=== PATIENT | male | born 1935 | race Caucasian/White ===

== ENCOUNTER 2019-04-24 17:10 | Inpatient (IN) | payer MEDICARE, OTHER ==
[~2019-04-24] VITALS: Ht 167.6 cm; Wt 101.2 kg
[~2019-04-24 17:10] MED LIST: ACHYD1T PO; ALLO300T2 PO; ALLOPURINOL; GLMP2T PO; LEVO125T6 PO; LEVO5TAB12 PO; LOSA1TAB15 PO; MELO-195 PO; MMT17NA NS; NFR150C PO; SENN1TAB76 PO; SITA100T PO; TRM50T PO; WARF2.5T PO; [UNRECOGNIZED DRUG - MIXTURE] TOP
--- NOTE | 2019-04-24 17:15 | NUR ---
NERY PHAM admitted to room 427-1, with an admitting diagnosis of ANEMIA,LOWER GI BLEED, on 04/24/[address] CARDOZAS via AMB, accompanied by .NERY PHAM introduced to surroundings, call light, bed controls, phone, TV, temperature control, lights, meal times, smoking policy, visitor policy, side rail policy, bathrooms and showers. Patient Rights given to patient in the handbook. NERY PHAM verbalizes understanding that [facility] is not responsible for the loss or damage to any personal effects or valuables that are kept in the patients posession during their hospitalization. The following Patient Care Plans were discussed with the PT: Discharge Planning, IMP GAS EXCH, HIGH RISK INFECTION, AND ACT INTOL. NERY PHAM verbalizes understanding of Interdisciplinary Patient Education. Patient and/or family were informed about the Rapid Response Team and its purpose.
[2019-04-24 17:42] VITALS: BP 158/78
--- NOTE | 2019-04-24 17:45 | HISTORY AND PHYSICAL ---
DATE OF SERVICE: 04/24/2019 ADMITTING PRIMARY CARE PHYSICIAN: Dr. Castle. HISTORY OF PRESENT ILLNESS: The patient is an 84-year-old male who was referred over to us for GI bleed. He states that this has been going on for the past 10 days. He reports that today he did feel weak as well as lightheaded. He did have laboratory work drawn two days ago with hemoglobin of 11; however, repeat was done today and showed a significant decrease at 7.8. He reports that the blood is usually with every bowel movement and is red in coloration. He does have a history of polyps and also did have a large symptomatic polyp of the right colon, status post right hemicolectomy in 2016. Previous colonoscopy also did show hemorrhoids as well as diverticulosis. Due to his continued bleeding and symptomatic anemia, we will admit him, transfuse blood and stabilize and then proceed with a colonoscopy. PAST MEDICAL HISTORY: Diabetes, hypothyroid, degenerative joint disease, diverticulosis, hemorrhoids. PAST SURGICAL HISTORY: Bilateral total knee arthroplasty, open right hemicolectomy 16'. ALLERGIES: No known drug allergies. MEDICATIONS: Glipizide 10 mg daily, amlodipine 10 mg daily, Synthroid 175 mcg daily, meloxicam 15 mg daily, Linzess 290 mg daily, allopurinol 300 mg daily, levocetirizine 5 mg daily, tamsulosin 0.4 mg daily, Trulicity 0.75 mg daily. SOCIAL HISTORY: Previous smoker, quit in 1982. Negative alcohol. FAMILY HISTORY: Mother, brother, diabetes. Paternal grandmother with gastric cancer. VITAL SIGNS: Blood pressure 110/58. Current weight 207.5 pounds at 5 feet 7 inches. REVIEW OF SYSTEMS: Well-nourished male in no acute distress. He is not experiencing any shortness of breath or difficulty breathing. No chest pain, palpitations, diaphoresis. No nausea, vomiting with red blood per rectum, usually with every bowel movement. No fever, chills, no recent inadvertent weight loss. PHYSICAL EXAMINATION: CHEST: Clear. Good breath sounds bilaterally. HEART: Regular, no murmurs. EXTREMITIES: No lower extremity edema, negative Homans sign. HEENT: No scleral icterus. NECK: No cervical lymphadenopathy. ABDOMEN: Soft, nontender, nondistended. No palpable masses. SKIN: Warm, dry. ASSESSMENT AND PLAN: An 84-year-old male with lower gastrointestinal bleed with symptomatic anemia. We will admit him, check serial hemoglobin and hematocrit as well as transfuse two units of packed red blood cells. During this admission, we will also proceed with a colonoscopy. Job ID: [id number] DocumentID: [id number] Dictated Date: 04/24/2019 17:11:30 State Game Protector Date: 04/24/2019 17:44:42 Dictated By: ALEX ARCINIEGA MD [facility]
[2019-04-24 17:50] VITALS: BP 158/78
[2019-04-24] MEDS ORDERED: ONDANSETRON 4 MG/2 ML (SDV) Z0FRAN IV PRN (18:00)
[2019-04-24] MEDS ORDERED: fentaNYL INJECTION 100 MCG/2 ML AMP IV PRN (18:00)
[2019-04-24] MEDS ORDERED: HYDROcodone/APAP 7.5 MG/325 MG (LORTAB, LORCET PLUS) TABLET PO PRN (18:00)
[2019-04-24] MEDS ORDERED: NS IV 500 ML 500 ML IV SCH (18:00)
[2019-04-24 18:15] LABS: HEMOGLOBIN 7.9 G/DL (13.3-17.7)
[2019-04-24] MEDS: PANTOPRAZOLE 40 MG (PROTONIX) VIAL IV SCH (18:47)
[2019-04-24] MEDS: CATHETER FLUSH 10 ML SYR IV PRN (18:48)
--- NOTE | 2019-04-24 19:00 | NUR ---
NOTE THAT CONSENT FOR BLOOD PRODUCTS SIGNED AND IN CHART --
[2019-04-24] MEDS: CATHETER FLUSH 10 ML SYR IV SCH (19:37)
[2019-04-24 20:56] VITALS: BP 135/61
[2019-04-24 21:03] VITALS: BP 135/61
[2019-04-24 21:18] VITALS: BP 138/65
[2019-04-24] MEDS ORDERED: MELATONIN 3 MG TABLET ONE (21:47)
[2019-04-24] MEDS: MELATONIN 3 MG TABLET PO SCH (21:53)
[2019-04-24 23:34] VITALS: BP 140/64
[2019-04-25] VITALS (7 sets, daily range): BP systolic 127–172; BP diastolic 60–79
[2019-04-25] MEDS: CATHETER FLUSH 10 ML SYR IV SCH ×3 (02:50→20:54)
[2019-04-25 05:28] LABS: HEMOGLOBIN 8.8 G/DL (13.3-17.7); MEAN PLATELET VOLUME 10.4 FL (7.4-10.4); RED CELL DISTRIBUTION WIDTH 15.5 % (10.0-14.5); WHITE BLOOD COUNT 9.7 10^3/uL (4.3-11.0)
[2019-04-25 05:43] LABS: CALCIUM 7.9 MG/DL (8.5-10.1); CREATININE SERUM 1.5 MG/DL (0.60-1.30)
--- NOTE | 2019-04-25 07:17 | NUR ---
Dr. Amaral notified of consult.
[2019-04-25] MEDS ORDERED: CYAN250010 PO (11:29)
[2019-04-25] MEDS ORDERED: DULA0.75 SQ (11:29)
[2019-04-25] MEDS ORDERED: LINA290C PO (11:29)
[2019-04-25] MEDS ORDERED: LEVO5TAB12 PO (11:29)
[2019-04-25] MEDS ORDERED: GLIP10TA13 PO (11:29)
[2019-04-25] MEDS ORDERED: TAMS0.4C98 PO (11:29)
[2019-04-25] MEDS ORDERED: ALLO300T2 PO (11:29)
[2019-04-25] MEDS ORDERED: AMLO10TA7 PO (11:29)
[2019-04-25] MEDS ORDERED: MELO15TA39 PO (11:29)
[2019-04-25] MEDS ORDERED: LEVO175T5 PO (11:29)
[2019-04-25] MEDS ORDERED: METH2.5T PO (11:39)
[2019-04-25] MEDS: inSUlin ASPART (NovoLOG) 1 UNIT/0.01 ML (CHARGE PER UNIT) SC SCH ×3 (12:29→20:54)
--- NOTE | 2019-04-25 13:36 | NUR ---
SPOKE WITH THE PT(HIS HAD A MED LIST) WELL GOING THRU THE EXT MED HISTORY TO COMPLETE THE MED REC. PT WAS ABLE TO TELL ME HOW/WHEN HE TAKES EACH MED. THE FILL DATES ON THE EXT MED HIST INDICATE THE PT IS TAKING THEM PRESCRIBED (MELOXICAM: THE RX SAYS " 1 TAB DAILY HOWEVER THE PT CUTS IT IN HALF AND JUST TAKES 7.5MG DAILY BC HE WAS WORRIED ABOUT THE BLEEDING RISH) PT RECEIVES A COMPOUNDED TESTOSTERONE CREAM FROM A COMPOUNDING PHARMACY IN [facility], THIS WAS ON THE MED REC FROM A PREVIOUS STAY AND I KEPT THAT THE SAME. PT HAD PICKED UP A COUPLE ANTIBIOTIC AND ANUSOL SUPPOSITORIES, HOWEVER HE QUIT TAKING THEM SHORTLY BEFORE HIS ADMISSION SO I LEFT THEM OFF THE MED REC. OTC MEDS: VIT B12
--- NOTE | 2019-04-25 14:44 | Consultation - Hospitalist ---
HPI History of Present Illness: HPI/Chief Complaint Quinn Faria is a 84-year-old male with past medical history of hypertension, type II diabetes mellitus, hypothyroidism, gout, BPH, who presented with bright red blood per rectum. He states that he has had bleeding for a couple weeks. He says that it has not been every time he has gone to the bathroom. He said that it improved but has gotten worse to the past day or 2. He says that since this morning he has gone about 4 times and it is been bright red blood every time. He reports that he did have some black tarry stools this morning as well. He denies any fevers or chills. He denies any chest pain or shortness of breath. He denies any nausea, vomiting, hematemesis, abdominal pain. Source: patient Exam Limitations: no limitations Date Seen 04/25/19 Attending Physician Meghan Bishop MD PCP Pb Castle MD Referring Physician Date of Admission Apr 24, 2019 at 17:20 Home Medications & Allergies Home Medications Reviewed patient Home Medication Reconciliation performed by pharmacy medication reconciliations surface lay out technician and/or nursing. Patients Allergies have been reviewed. Allergies Allergies Coded Allergies No Known Drug Allergies (Verified Allergy, Unknown, 07/29/09) Past Wphwwsn-Lrwlzq-Uuxusn Hx Past Med/Social Hx: Reviewed Nursing Past Med/Soc Hx Patient Social History Alcohol Use: Denies Use Recreational Drug Use: No Physical Abuse Screen: No Sexual Abuse: No Recent Foreign Travel: No Contact w/other who traveled: No Recent Hopitalizations: Yes Recent Infectious Disease Expo: No Immunizations Up To Date Tetanus Booster (TDap): Unknown Date of Pneumonia Vaccine: Feb 13, 2017 Date of Influenza Vaccine: Feb 13, 2019 Seasonal Allergies Seasonal Allergies: Yes Past Medical History Currently Using CPAP: No Currently Using BIPAP: No Reproductive: No Sexually Transmitted Disease: No HIV/AIDS: No Gastrointestinal: Chronic Constipation, Hemorrhoids Musculoskeletal: Arthritis Endocrine: Hypothyroidsim, Diabetes, Non-Insulin dep Are Your Blood Sugars Over 250: No HEENT: Cataract Skin/Integumentary: Psoriasis History of Blood Disorders: Yes Adverse Reaction to Blood [place]: No Family History Cancer 03 FATHER Family history: Diabetes mellitus 03 MOTHER 09 BROTHER Hereditary disease SON (ELEONORA LAKHANI) No Family History of: Abdominal aortic aneurysm Congestive heart failure Family history: Allergy Family history: Breast disease Family history: Cardiovascular disease Family history: Gastrointestinal disease Family history: Thyroid disorder History of - respiratory disease Myocardial infarction Seizure disorder Review of Systems Constitutional: no symptoms reported EENTM: no symptoms reported Respiratory: no symptoms reported Cardiovascular: no symptoms reported Gastrointestinal: No abdominal pain, No nausea, No vomiting; other (hematochezia) Genitourinary: no symptoms reported Musculoskeletal: no symptoms reported Skin: no symptoms reported Psychiatric/Neurological: No Symptoms Reported Physical Exam Physical Exam Vital Signs Vital Signs - First Documented 04/24/19 04/24/19 17:35 17:42 Temp 36.5 Pulse 70 Resp 20 B/P (MAP) 158/78 Pulse Ox 100 O2 Delivery Room Air Capillary Refill : Height, Weight, BMI Height: '" Weight: 222lbs. oz. 100.904788vk; 32.96 BMI Method: General Appearance: No Apparent Distress, WD/WN HEENT: PERRL/EOMI, Pharynx Normal Neck: Normal Inspection, Supple Respiratory: Lungs Clear, Normal Breath Sounds, No Respiratory Distress Cardiovascular: Regular Rate, Rhythm, No Edema, No Murmur Gastrointestinal: Normal Bowel Sounds, Non Tender, Soft Extremity: Normal Inspection, Non Tender, No Pedal Edema Neurologic/Psychiatric: Alert, Oriented x3, No Motor/Sensory Deficits, Normal Mood/Affect Skin: Normal Color, Warm/Dry Lymphatic: No Adenopathy Results Results/Procedures Labs Laboratory Tests 04/24/19 18:03 04/25/19 04:50 Patient resulted labs reviewed. Assessment/Plan Assessment and Plan Assess & Plan/Chief Complaint Hematochezia Acute blood loss anemia Acute lower GI bleeding admitted to Dr. Bishop hemoglobin 7.9 on arrival, down from baseline approximately 12 transfuse 2 units last night Hemoglobin 8.8 this morning planning for colonoscopy Hypertension Hold amlodipine Type II diabetes mellitus Sliding scale insulin Hypothyroidism Continue levothyroxine BPH Continue Flomax Gout Continue allopurinol DVT prophylaxis: Held due to active major bleeding Diagnosis/Problems Diagnosis/Problems (1) Acute lower GI bleeding Status: Acute (2) Acute blood loss anemia Status: Acute (3) Hematochezia Status: Acute (4) HTN (hypertension) Status: Chronic Qualifiers: Hypertension type: essential hypertension Qualified Codes: I10 - Essential (primary) hypertension (5) T2DM (type 2 diabetes mellitus) Status: Chronic (6) BPH (benign prostatic hyperplasia) Status: Chronic (7) Gout Status: Chronic (8) Hypothyroidism Status: Chronic Clinical Quality Measures DVT/VTE Risk/Contraindication: Risk Factor Score Per Nursin RFS Level Per Nursing on Admit: 2=Moderate MAIA THOMSON MD Apr 25, 2019 14:44 POS
--- NOTE | 2019-04-25 15:22 | Progress Note ---
Subjective Date Seen by a Provider: Apr 25, 2019 Time Seen by a Provider: 15:00 Subjective/Events-last exam doing well. hb stable. mild rectal bleed but decreasing. no abd pain. Objective Exam Vital Signs Date Time Temp Pulse Resp B/P (MAP) Pulse Ox O2 Delivery O2 Flow Rate FiO2 04/25/19 12:00 36.3 69 20 162/69 (100) 99 Room Air 04/25/19 08:00 36.1 79 20 170/79 (109) 99 Room Air 04/25/19 08:00 Room Air 04/25/19 02:33 36.6 68 20 140/65 95 Room Air 04/25/19 02:33 36.6 68 20 140/65 (90) 95 Room Air 04/25/19 00:29 36.5 68 20 149/69 96 Room Air 04/25/19 00:08 36.8 63 20 147/66 98 Room Air 04/24/19 23:34 36.6 67 20 140/64 98 Room Air 04/24/19 23:34 36.6 67 20 140/64 (89) 98 Room Air 04/24/19 21:18 37.0 82 20 138/65 96 Room Air 04/24/19 21:03 37.1 79 20 135/61 (85) 96 Room Air 04/24/19 20:56 37.1 79 20 135/61 96 Room Air 04/24/19 19:40 96 Room Air 04/24/19 17:50 36.5 70 20 158/78 (104) 100 Room Air 04/24/19 17:42 36.5 70 20 158/78 100 Room Air 04/24/19 17:35 100 Room Air I & O 04/25/19 07:00 Intake Total 600 ml Output Total 625 ml Balance -25 ml Capillary Refill : General Appearance: No Apparent Distress Neck: Full Range of Motion Respiratory: Chest Non Tender Cardiovascular: Regular Rate, Rhythm Gastrointestinal: normal bowel sounds, non tender, soft Extremity: Normal Capillary Refill Neurologic/Psychiatric: Alert, Oriented x3 Skin: Normal Color Lymphatic: No Adenopathy Results Lab Laboratory Tests 04/24/19 18:03: Hemoglobin 7.9L, Hematocrit 23L 04/25/19 04:50: Hemoglobin 8.8L, Hematocrit 26L, White Blood Count 9.7, Red Blood Count 2.84L, Mean Corpuscular Volume 92, Mean Corpuscular Hemoglobin 31, Mean Corpuscular Hemoglobin Concent 34, Red Cell Distribution Width 15.5H, Platelet Count 227, Mean Platelet Volume 10.4, Sodium Level 137, Potassium Level 4.0, Chloride Level 110H, Carbon Dioxide Level 19L, Anion Gap 8, Blood Urea Nitrogen 28H, Creatinine 1.50H, Estimat Glomerular Filtration Rate 45, BUN/Creatinine Ratio 19, Glucose Level 174H, Calcium Level 7.9L 04/25/19 11:00: Glucometer 251H Assessment/Plan Assessment/Plan Assess & Plan/Chief Complaint lower GI bleed. schedule colonoscopy. Clinical Quality Measures DVT/VTE Risk/Contraindication: Risk Factor Score Per Nursin RFS Level Per Nursing on Admit: 2=Moderate ALEX ARCINIEGA MD Apr 25, 2019 15:22 POS
[2019-04-25] MEDS ORDERED: MAGNESIUM CITRATE 300 ML BTL PO NR (15:45)
[2019-04-25] MEDS: PANTOPRAZOLE 40 MG (PROTONIX) VIAL IV SCH (17:55)
[2019-04-25 18:30] LABS: HEMOGLOBIN 9.3 G/DL (13.3-17.7)
[2019-04-25] MEDS ORDERED: amLODIPine 10 MG (NORVASC) TAB ONE (20:13)
[2019-04-25] MEDS: amLODIPine 10 MG (NORVASC) TAB PO SCH (20:53)
[2019-04-25] MEDS: LORATADINE (CLARITIN) 10 MG TAB PO SCH (20:54)
[2019-04-25] MEDS: TAMSULOSIN 0.4 MG (FLOMAX) CAP PO SCH (20:54)
[2019-04-25] MEDS: ALLOPURINOL 300 MG (ZYLOPRIM) TAB PO SCH (20:54)
[2019-04-25] MEDS: MELATONIN 3 MG TABLET PO SCH (20:54)
[2019-04-25] MEDS ORDERED: LEVOCETIRIZINE 5 MG TAB (XYZAL) NON-FORMULARY PO SCH (21:00)
[2019-04-25] MEDS ORDERED: NON-FORMULARY MEDICATION 1 EA EA (Allopurinol 300 MG) PO SCH (21:00)
[2019-04-25] MEDS ORDERED: MAGNESIUM CITRATE 300 ML BTL ONE (21:23)
[2019-04-25] MEDS ORDERED: MAGNESIUM CITRATE 300 ML BTL PO ONE (21:30)
--- NOTE | 2019-04-25 21:30 | NUR ---
Dr. Bishop notified of pt's request for additional Mag Citrate. New order rec for Mag Citrate 150-300 mls x 1 dose.
[2019-04-26] VITALS (24 sets, daily range): BP systolic 104–175; BP diastolic 50–73
[2019-04-26] MEDS: CATHETER FLUSH 10 ML SYR IV SCH ×3 (05:55→20:20)
[2019-04-26] MEDS: LEVOTHYROXINE 75 MCG (LEVOTHROID) TABLET PO SCH (05:55)
[2019-04-26] MEDS: LEVOTHYROXINE 100 MCG (LEVOTHROID) TAB PO SCH (05:55)
[2019-04-26] MEDS: inSUlin ASPART (NovoLOG) 1 UNIT/0.01 ML (CHARGE PER UNIT) SC SCH ×4 (05:59→22:04)
[2019-04-26 06:05] LABS: HEMOGLOBIN 8.2 G/DL (13.3-17.7)
[2019-04-26] MEDS: LINACLOTIDE 290 MCG (LINZESS) CAPSULE PO SCH (07:33)
[2019-04-26 08:03] LABS: CALCIUM 8.2 MG/DL (8.5-10.1); CREATININE SERUM 1.58 MG/DL (0.60-1.30); POTASSIUM 3.9 MMOL/L (3.6-5.0)
[2019-04-26] MEDS ORDERED: NON-FORMULARY MEDICATION 1 EA EA (Amlodipine Besylate 10 MG) PO SCH (09:00)
[2019-04-26] MEDS ORDERED: NON-FORMULARY MEDICATION 1 EA EA (Levothyroxine Sodium 175 MCG) PO SCH (09:00)
--- NOTE | 2019-04-26 09:37 | Progress Note - Hospitalist ---
Subjective HPI/CC On Admission Date Seen by Provider: Apr 26, 2019 Time Seen by Provider: 09:10 Quinn Faria is a 84-year-old male with past medical history of hypertension, type II diabetes mellitus, hypothyroidism, gout, BPH, who presented with bright red blood per rectum. He states that he has had bleeding for a couple weeks. He says that it has not been every time he has gone to the bathroom. He said that it improved but has gotten worse to the past day or 2. He says that since this morning he has gone about 4 times and it is been bright red blood every time. He reports that he did have some black tarry stools this morning as well. He denies any fevers or chills. He denies any chest pain or shortness of breath. He denies any nausea, vomiting, hematemesis, abdominal pain. Subjective/Events-last exam He took his colonoscopy prep last night. He states that he started having bowel movements around 130 a.m. He reports having hematochezia with all bowel movements. He denies any fevers, chills, chest pain, dyspnea, abdominal pain, nausea, vomiting. Objective Exam Vital Signs Vital Signs Date Time Temp Pulse Resp B/P (MAP) Pulse Ox O2 Delivery O2 Flow Rate FiO2 04/26/19 04:00 36.8 97 18 121/58 (79) 98 Room Air Capillary Refill : General Appearance: No Apparent Distress, WD/WN HEENT: PERRL/EOMI, Pharynx Normal Neck: Normal Inspection, Supple Respiratory: Lungs Clear, Normal Breath Sounds, No Respiratory Distress Cardiovascular: Regular Rate, Rhythm, No Edema, No Murmur Gastrointestinal: Normal Bowel Sounds, Non Tender, Soft Extremity: Normal Inspection, Non Tender, No Pedal Edema Neurologic/Psychiatric: Alert, Oriented x3, No Motor/Sensory Deficits, Normal Mood/Affect Skin: Normal Color, Warm/Dry Lymphatic: No Adenopathy Results/Procedures Lab Laboratory Tests 04/25/19 18:20 04/26/19 05:30 Patient resulted labs reviewed. Assessment/Plan Assessment and Plan Assess & Plan/Chief Complaint Hematochezia Acute blood loss anemia Acute lower GI bleeding admitted to Dr. Bishop hemoglobin 7.9 on arrival, down from baseline approximately 12 s/p 2 units PRBC Hemoglobin 8.2 this morning planning for colonoscopy today Hypertension Hold amlodipine Type II diabetes mellitus Sliding scale insulin CKD3 Creatinine 1.5, appears to be a baseline Continue to monitor and avoid nephrotoxins as able Hypothyroidism Continue levothyroxine BPH Continue Flomax Gout Continue allopurinol DVT prophylaxis: Held due to active major bleeding Diagnosis/Problems Diagnosis/Problems (1) Acute lower GI bleeding Status: Acute (2) Acute blood loss anemia Status: Acute (3) Hematochezia Status: Acute (4) HTN (hypertension) Status: Chronic Qualifiers: Hypertension type: essential hypertension Qualified Codes: I10 - Essential (primary) hypertension (5) T2DM (type 2 diabetes mellitus) Status: Chronic (6) BPH (benign prostatic hyperplasia) Status: Chronic (7) Gout Status: Chronic (8) Hypothyroidism Status: Chronic (9) CKD (chronic kidney disease) Status: Chronic Qualifiers: Chronic kidney disease stage: stage 3 (moderate) Qualified Codes: N18.3 - Chronic kidney disease, stage 3 (moderate) Clinical Quality Measures DVT/VTE Risk/Contraindication: Risk Factor Score Per Nursin RFS Level Per Nursing on Admit: 2=Moderate MAIA THOMSON MD Apr 26, 2019 09:37 POS
[2019-04-26] MEDS: amLODIPine 10 MG (NORVASC) TAB PO SCH (16:05)
--- NOTE | 2019-04-26 17:03 | Progress Note-Pre Operative ---
Pre-Operative Progress Note H&P Reviewed The H&P was reviewed, patient examined and no changes noted. Date Seen by Provider: Apr 26, 2019 Time Seen by Provider: 17:00 Date H&P Reviewed: Apr 26, 2019 Time H&P Reviewed: 16:55 Pre-Operative Diagnosis: Anemia, lower GI bleed SRINIVAS FERNANDEZ APRN Apr 26, 2019 17:03 POS
[2019-04-26] MEDS: PANTOPRAZOLE 40 MG (PROTONIX) VIAL IV SCH (17:20)
[2019-04-26 17:46] LABS: HEMOGLOBIN 7.8 G/DL (13.3-17.7)
[2019-04-26] MEDS ORDERED: NS IV 500 ML 500 ML ONE (17:50)
[2019-04-26] MEDS ORDERED: fentaNYL INJECTION 100 MCG/2 ML AMP ONE (17:53)
[2019-04-26] MEDS ORDERED: LIDOCAINE JELLY 2% 6 ML SYRINGE ONE (17:53)
[2019-04-26] MEDS ORDERED: MIDAZOLAM 5 MG/5 ML (VERSED) VIAL ONE ×2 (17:53)
[2019-04-26] MEDS: MIDAZOLAM 5 MG/5 ML (VERSED) VIAL IV PRN ×4 (17:59→18:22)
[2019-04-26] MEDS ORDERED: NS IV 500 ML 500 ML IV PRN (18:19)
[2019-04-26] MEDS ORDERED: LIDOCAINE JELLY 2% 6 ML SYRINGE MM PRN (18:30)
[2019-04-26] MEDS ORDERED: fentaNYL INJECTION 100 MCG/2 ML AMP IVP ONE (18:30)
--- NOTE | 2019-04-26 18:37 | Conscious Sedation/ASA ---
Conscious Sedation Pre-Proced Time 16:55 ASA Score 2 For ASA 3 and 4: Consider anesthesia and medical clearance. Also, for patients with a history of failed moderate sedation consider anesthesia. Airway Lungs Heart ASA score ASA 1: a normal healthy patient ASA 2: a patient with a mild systemic disease (mid diabetes, controlled hypertension, obesity ASA 3: a patient with a severe systemic disease that limits activity (angina, COPD, prior Myocardial infarction) ASA 4: a patient with an incapacitating disease that is a constant threat to life (CHF, renal failure) ASA 5: a moribund patient not expected to survive 24 hrs. (ruptured aneurysm) ASA 6: a declared brain- patient whose organs are being harvested. For emergent operations, add the letter E after the classification Mallampati Classification Grade 2 Sedation Plan Analgesia, Amnesia, Plan communicated to team members, Discussed options with patient/fam, Discussed risks with patient/fam The patient is an appropriate candidate to undergo the planned procedure, sedation, and anesthesia. The patient immediately re-assessed prior to indication. ALEX ARCINIEGA MD Apr 26, 2019 18:37 POS
--- NOTE | 2019-04-26 18:39 | Progress Note-Post Operative ---
Post-Operative Progess Note Surgeon (s)/Electronic Game Developer (s) Surgeon ALEX ARCINIEGA MD Electronic Game Developer: none Pre-Operative Diagnosis Anemia, lower GI bleed Post-Operative Diagnosis mild chronic stage 2 ext and int hemorrhoids, maroon stools throughout descending, sigmoid, rectum, no blood proximal colon and normal ileocolonic anastamosis. Procedure & Operative Findings Date of Procedure 04/26/19 Procedure Performed/Findings colonoscopy Anesthesia Type cs Estimated Blood Loss Estimated blood loss (mL): minimal Specimens/Packing Specimens Removed none ALEX ARCINIEGA MD Apr 26, 2019 18:39 POS
--- NOTE | 2019-04-26 18:55 | NUR ---
Back to room 427 via WC from endoscopy. Alert and oriented. at bedside. Dr. Bishop here to speak with and patient. Will continue to monitor.
--- NOTE | 2019-04-26 19:00 | OPERATIVE REPORT ---
DATE OF SERVICE: 04/26/2019 ATTENDING PRIMARY CARE PHYSICIAN: Pb Castle MD PREOPERATIVE DIAGNOSIS: Lower gastrointestinal bleed. POSTOPERATIVE DIAGNOSES: Maroon clotted stools throughout the descending colon, sigmoid colon and rectum with significant diverticulosis most likely consistent with a sigmoid diverticular bleed. There was a transition point of blood within the colon. The transverse colon and the ileocolonic anastomosis appeared normal with no proximal blood. There was no active bleeding identified. PROCEDURE: Colonoscopy. SURGEON: Alex Arciniega MD ANESTHESIA: Conscious sedation. ESTIMATED BLOOD LOSS: Minimal. FINDINGS: Same as postoperative diagnoses. DISPOSITION: The patient tolerated the procedure well. INDICATIONS: The patient is an 84-year-old male who was referred over to us for a gastrointestinal bleed. He had reported this has been going on for the past 10 days. He then reported feeling weak and lightheaded. He did have some laboratory work done and his initial hemoglobin was 11; however, this did decrease to 7.8. He does have a history of large symptomatic polyps and underwent a right hemicolectomy in 2016. He was admitted, IV hydrated as well as given two units of blood. Since being admitted, his blood levels went up; however, have decreased again. DESCRIPTION OF PROCEDURE: The patient was brought to the endoscopy suite, laid in left lateral decubitus position. After adequate IV pain and sedative medications and conscious sedation anesthesia, digital rectal examination was performed. Mild chronic stage II external and internal hemorrhoids were identified, which were not actively edematous nor inflamed and no bleeding. Normal sphincter tone was felt and there were no palpable masses. Prostate gland was palpable and appeared normal. The endoscope was then intubated to the anus and rectum gently insufflated. Within the rectum, there was a maroon clotted blood and this was irrigated and suctioned as well as possible. We then proceeded through the sigmoid colon where a moderate sigmoid diverticulosis identified. Each diverticula did have blood within the pockets; however, there were no red active bleeding identified in any of these diverticulum. We then proceeded through the descending colon where the maroon color clotted blood continued at approximately the distal transverse colon, there was transition of no blood. The endoscope was then advanced to the ileocolonic anastomosis, which appeared normal with no recurrent lesions as well as no blood. The endoscope was then slowly withdrawn while taking a second look and suctioning of residual air and clotted blood with no additional findings. The patient tolerated the procedure well. At this time, we feel that the bleeding source is due to a diverticular bleed and we will proceed with conservative measures and continue with transfusing packed red blood cells as needed in hopes of allowing this to clot off on its own. We will continue to monitor his clinical as well as vital signs and repeat serial hemoglobin and hematocrit levels. We will also transfuse 2 units of blood today. Job ID: [id number] DocumentID: [id number] Dictated Date: 04/26/2019 18:47:48 [employer]berry Farm Supervisor Date: 04/26/2019 18:59:35 Dictated By: ALEX ARCINIEGA MD
[2019-04-26] MEDS: NS IV 500 ML 500 ML IV NR ×2 (19:43→20:28)
[2019-04-26] MEDS: ALLOPURINOL 300 MG (ZYLOPRIM) TAB PO SCH (20:19)
[2019-04-26] MEDS: TAMSULOSIN 0.4 MG (FLOMAX) CAP PO SCH (20:19)
[2019-04-26] MEDS: LORATADINE (CLARITIN) 10 MG TAB PO SCH (20:19)
[2019-04-26] MEDS: MELATONIN 3 MG TABLET PO SCH (20:19)
[2019-04-27] VITALS (8 sets, daily range): BP systolic 112–155; BP diastolic 55–70
--- NOTE | 2019-04-27 01:08 | NUR ---
REPORT RECEIVED FROM LE ACHARYA. ASSUMED CARE OF PT AT THIS TIME. ABASEMENT HAS NOT CHANGED
[2019-04-27 05:45] LABS: HEMOGLOBIN 9.1 G/DL (13.3-17.7)
[2019-04-27 06:07] LABS: CALCIUM 7.9 MG/DL (8.5-10.1); CREATININE SERUM 1.48 MG/DL (0.60-1.30)
[2019-04-27] MEDS: LEVOTHYROXINE 100 MCG (LEVOTHROID) TAB PO SCH (06:08)
[2019-04-27] MEDS: LEVOTHYROXINE 75 MCG (LEVOTHROID) TABLET PO SCH (06:08)
[2019-04-27] MEDS: LINACLOTIDE 290 MCG (LINZESS) CAPSULE PO SCH (06:08)
[2019-04-27] MEDS: inSUlin ASPART (NovoLOG) 1 UNIT/0.01 ML (CHARGE PER UNIT) SC SCH ×4 (06:09→21:15)
[2019-04-27] MEDS: CATHETER FLUSH 10 ML SYR IV SCH ×3 (06:09→22:37)
[2019-04-27] MEDS: amLODIPine 10 MG (NORVASC) TAB PO SCH (08:09)
--- NOTE | 2019-04-27 09:41 | Progress Note - Hospitalist ---
Subjective HPI/CC On Admission Date Seen by Provider: Apr 27, 2019 Time Seen by Provider: 07:45 Quinn Faria is a 84-year-old male with past medical history of hypertension, type II diabetes mellitus, hypothyroidism, gout, BPH, who presented with bright red blood per rectum. He states that he has had bleeding for a couple weeks. He says that it has not been every time he has gone to the bathroom. He said that it improved but has gotten worse to the past day or 2. He says that since this morning he has gone about 4 times and it is been bright red blood every time. He reports that he did have some black tarry stools this morning as well. He denies any fevers or chills. He denies any chest pain or shortness of breath. He denies any nausea, vomiting, hematemesis, abdominal pain. Subjective/Events-last exam He reports that he slept through the night. This morning when he woke up he had a bowel movement and there was a small amount of bright red blood in it. He denies any abdominal pain, nausea, or vomiting. He denies any fevers or chills. He has no shortness of breath or chest pain. He had been lightheaded and dizzy previously but this has not recurred. Objective Exam Vital Signs Vital Signs Date Time Temp Pulse Resp B/P (MAP) Pulse Ox O2 Delivery O2 Flow Rate FiO2 04/27/19 04:00 36.4 86 20 137/65 (89) 99 Room Air 04/26/19 18:40 10 Capillary Refill : General Appearance: No Apparent Distress, WD/WN HEENT: PERRL/EOMI, Pharynx Normal Neck: Normal Inspection, Supple Respiratory: Lungs Clear, Normal Breath Sounds, No Respiratory Distress Cardiovascular: Regular Rate, Rhythm, No Edema, No Murmur Gastrointestinal: Normal Bowel Sounds, Non Tender, Soft Extremity: Normal Inspection, Non Tender, No Pedal Edema Neurologic/Psychiatric: Alert, Oriented x3, No Motor/Sensory Deficits, Normal Mood/Affect Skin: Normal Color, Warm/Dry Lymphatic: No Adenopathy Results/Procedures Lab Laboratory Tests 04/26/19 17:30 04/27/19 05:10 04/27/19 05:20 Patient resulted labs reviewed. Assessment/Plan Assessment and Plan Assess & Plan/Chief Complaint Hematochezia Acute blood loss anemia Acute lower GI bleeding admitted to Dr. Bishop Colonoscopy yesterday with diverticulosis, no active bleeding identified, joann ght red blood in the sigmoid colon without significant bleeding proximally Hemoglobin 9.1 this morning, stable, status post 2 units PRBCs earlier this hospitalization Hypertension Hold amlodipine Type II diabetes mellitus Sliding scale insulin CKD3 Creatinine 1.5, appears to be a baseline Continue to monitor and avoid nephrotoxins as able Hypothyroidism Continue levothyroxine BPH Continue Flomax Gout Continue allopurinol DVT prophylaxis: Held due to active major bleeding Diagnosis/Problems Diagnosis/Problems (1) Acute lower GI bleeding Status: Acute (2) Acute blood loss anemia Status: Acute (3) Hematochezia Status: Acute (4) HTN (hypertension) Status: Chronic Qualifiers: Hypertension type: essential hypertension Qualified Codes: I10 - Essential (primary) hypertension (5) T2DM (type 2 diabetes mellitus) Status: Chronic (6) BPH (benign prostatic hyperplasia) Status: Chronic (7) Gout Status: Chronic (8) Hypothyroidism Status: Chronic (9) CKD (chronic kidney disease) Status: Chronic Qualifiers: Chronic kidney disease stage: stage 3 (moderate) Qualified Codes: N18.3 - Chronic kidney disease, stage 3 (moderate) Clinical Quality Measures DVT/VTE Risk/Contraindication: Risk Factor Score Per Nursin RFS Level Per Nursing on Admit: 2=Moderate MAIA THOMSON MD Apr 27, 2019 09:41 POS
[2019-04-27] MEDS ORDERED: SIMETHICONE 80 MG (MYLICON) CHEW ONE (11:44)
--- NOTE | 2019-04-27 14:42 | Progress Note ---
Subjective Date Seen by a Provider: Apr 27, 2019 Time Seen by a Provider: 14:40 Subjective/Events-last exam doing better. less rectal bleeding. Hb increased appropriately to 9.1. Objective Exam Vital Signs Date Time Temp Pulse Resp B/P (MAP) Pulse Ox O2 Delivery O2 Flow Rate FiO2 04/27/19 12:00 36.0 85 18 155/65 (95) 98 Room Air 04/27/19 08:00 Room Air 04/27/19 08:00 36.7 72 18 150/70 (96) 100 Room Air 04/27/19 04:00 36.4 86 20 137/65 (89) 99 Room Air 04/27/19 01:27 36.6 75 18 142/65 98 Room Air 04/27/19 00:00 36.5 79 16 112/55 (74) 96 Room Air 04/26/19 23:14 37.1 80 16 119/57 97 Room Air 04/26/19 22:56 36.6 83 16 115/56 95 Room Air 04/26/19 22:11 37.0 83 16 133/61 99 Room Air 04/26/19 20:25 36.7 89 18 141/64 100 Room Air 04/26/19 20:06 36.8 87 18 130/58 96 Room Air 04/26/19 20:00 36.6 92 18 128/59 (82) 97 Room Air 04/26/19 19:35 96 Room Air 04/26/19 18:45 89 16 96 Room Air 04/26/19 18:40 77 16 100 OxyMask 10 04/26/19 18:35 79 16 100 OxyMask 10 04/26/19 18:30 83 16 100 OxyMask 10 04/26/19 18:25 76 16 99 OxyMask 10 04/26/19 18:20 83 16 100 OxyMask 10 04/26/19 18:15 91 16 100 OxyMask 10 04/26/19 18:10 84 16 99 OxyMask 10 04/26/19 18:05 87 16 100 OxyMask 10 04/26/19 18:00 84 16 100 OxyMask 10 04/26/19 17:55 90 16 98 OxyMask 10 04/26/19 17:50 92 16 92 OxyMask 10 04/26/19 17:49 96 16 100 Room Air 04/26/19 16:00 37.0 94 18 120/58 (78) 98 Room Air I & O 04/27/19 07:00 Intake Total 2180 ml Balance 2180 ml Capillary Refill : General Appearance: No Apparent Distress HEENT: PERRL/EOMI Neck: Full Range of Motion Respiratory: Chest Non Tender, Lungs Clear, Normal Breath Sounds Cardiovascular: Regular Rate, Rhythm Gastrointestinal: normal bowel sounds, non tender, soft Extremity: Normal Capillary Refill Neurologic/Psychiatric: Alert, Oriented x3 Skin: Normal Color Lymphatic: No Adenopathy Results Lab Laboratory Tests 04/26/19 16:02: Glucometer 166H 04/26/19 17:30: Hemoglobin 7.8L, Hematocrit 23L 04/26/19 21:41: Glucometer 269H 04/27/19 05:10: Sodium Level 138, Potassium Level 4.0, Chloride Level 107, Carbon Dioxide Level 22, Anion Gap 9, Blood Urea Nitrogen 15, Creatinine 1.48H, Estimat Glomerular Filtration Rate 46, BUN/Creatinine Ratio 10, Glucose Level 169H, Calcium Level 7.9L 04/27/19 05:20: Hemoglobin 9.1L, Hematocrit 27L 04/27/19 05:51: Glucometer 203H Assessment/Plan Assessment/Plan Assess & Plan/Chief Complaint lower GI bleed secondary to bleeding sigmoid diverticulosis. advance diet. monitor clinically and H/H. Clinical Quality Measures DVT/VTE Risk/Contraindication: Risk Factor Score Per Nursin RFS Level Per Nursing on Admit: 2=Moderate ALEX ARCINIEGA MD Apr 27, 2019 14:42 POS
[2019-04-27 18:01] LABS: HEMOGLOBIN 8.4 G/DL (13.3-17.7)
[2019-04-27] MEDS: PANTOPRAZOLE 40 MG (PROTONIX) VIAL IV SCH (19:46)
[2019-04-27] MEDS: LORATADINE (CLARITIN) 10 MG TAB PO SCH (21:15)
[2019-04-27] MEDS: ALLOPURINOL 300 MG (ZYLOPRIM) TAB PO SCH (21:15)
[2019-04-27] MEDS: MELATONIN 3 MG TABLET PO SCH (21:15)
[2019-04-27] MEDS: TAMSULOSIN 0.4 MG (FLOMAX) CAP PO SCH (21:15)
[2019-04-28] VITALS (8 sets, daily range): BP systolic 115–157; BP diastolic 57–86
[2019-04-28 05:54] LABS: HEMOGLOBIN 7.8 G/DL (13.3-17.7)
[2019-04-28 06:11] LABS: CREATININE SERUM 1.47 MG/DL (0.60-1.30)
[2019-04-28] MEDS: inSUlin ASPART (NovoLOG) 1 UNIT/0.01 ML (CHARGE PER UNIT) SC SCH ×4 (06:13→21:47)
[2019-04-28] MEDS: LINACLOTIDE 290 MCG (LINZESS) CAPSULE PO SCH (06:46)
[2019-04-28] MEDS: LEVOTHYROXINE 75 MCG (LEVOTHROID) TABLET PO SCH (06:48)
[2019-04-28] MEDS: LEVOTHYROXINE 100 MCG (LEVOTHROID) TAB PO SCH (06:48)
[2019-04-28] MEDS: CATHETER FLUSH 10 ML SYR IV SCH ×2 (06:49→14:33)
[2019-04-28] MEDS: DOCUSATE SODIUM 100 MG (COLACE) CAP PO PRN (07:32)
[2019-04-28] MEDS: amLODIPine 10 MG (NORVASC) TAB PO SCH (09:40)
[2019-04-28] MEDS ORDERED: NS IV 500 ML 500 ML IV SCH (11:30)
--- NOTE | 2019-04-28 11:38 | Progress Note ---
Subjective Date Seen by a Provider: Apr 28, 2019 Time Seen by a Provider: 11:00 Subjective/Events-last exam Patient seen with Dr. Bishop. Patient reports did have a BM this AM with bright red blood in stool. No abdominal pain. No SOB or weakness. Tolerating diet. No Fever/chills, N/V. Objective Exam Vital Signs Date Time Temp Pulse Resp B/P (MAP) Pulse Ox O2 Delivery O2 Flow Rate FiO2 04/28/19 08:00 36.8 96 18 115/60 (78) 100 Room Air 04/28/19 04:11 37.1 86 20 135/65 (88) 98 Room Air 04/27/19 23:43 36.9 78 18 133/61 (85) 98 Room Air 04/27/19 20:00 36.9 85 17 153/64 (93) 100 Room Air 04/27/19 19:40 Room Air 04/27/19 16:00 36.6 76 18 127/57 (80) 98 Room Air 04/27/19 12:00 36.0 85 18 155/65 (95) 98 Room Air I & O 04/28/19 07:00 Intake Total 2680 ml Balance 2680 ml Capillary Refill : General Appearance: No Apparent Distress, WD/WN Neck: Full Range of Motion, Normal Inspection, Non Tender, Supple Respiratory: Normal Breath Sounds, No Accessory Muscle Use, No Respiratory Distress Cardiovascular: Regular Rate, Rhythm, No Murmur Gastrointestinal: normal bowel sounds, non tender, soft Extremity: Normal Capillary Refill, Normal Inspection, Normal Range of Motion Neurologic/Psychiatric: Alert, Oriented x3 Skin: Normal Color, Warm/Dry Results Lab Laboratory Tests 04/27/19 11:36: Glucometer 258H 04/27/19 15:55: Glucometer 135H 04/27/19 17:47: Hemoglobin 8.4L, Hematocrit 25L 04/27/19 20:36: Glucometer 289H 04/28/19 04:59: Hemoglobin 7.8L, Hematocrit 24L, Sodium Level 138, Potassium Level 4.0, Chloride Level 108H, Carbon Dioxide Level 21, Anion Gap 9, Blood Urea Nitrogen 12, Creatinine 1.47H, Estimat Glomerular Filtration Rate 46, BUN/Creatinine Ratio 8, Glucose Level 175H, Calcium Level 8.0L 04/28/19 05:40: Glucometer 200H Assessment/Plan Assessment/Plan Assess & Plan/Chief Complaint An 84 year old male with lower GI bleed secondary to bleeding sigmoid diverticulosis. Continue diet. Hgb 7.8 Will transfuse 1 unti PRBCs monitor clinically and H/H. Clinical Quality Measures DVT/VTE Risk/Contraindication: Risk Factor Score Per Nursin RFS Level Per Nursing on Admit: 2=Moderate SRINIVAS FERNANDEZ TECHNOLOGY INTEGRATION SPECIALIST Apr 28, 2019 11:38 POS
[2019-04-28] MEDS ORDERED: NS IV 500 ML 500 ML ONE (13:53)
[2019-04-28] MEDS: PANTOPRAZOLE 40 MG (PROTONIX) VIAL IV SCH (17:18)
[2019-04-28] MEDS: CATHETER FLUSH 10 ML SYR IV PRN (17:20)
[2019-04-28 18:35] LABS: HEMOGLOBIN 9.4 G/DL (13.3-17.7)
[2019-04-28] MEDS: ALLOPURINOL 300 MG (ZYLOPRIM) TAB PO SCH (21:47)
[2019-04-28] MEDS: MELATONIN 3 MG TABLET PO SCH (21:47)
[2019-04-28] MEDS: LORATADINE (CLARITIN) 10 MG TAB PO SCH (21:47)
[2019-04-28] MEDS: TAMSULOSIN 0.4 MG (FLOMAX) CAP PO SCH (21:47)
[2019-04-29] VITALS: BP 142/59
[2019-04-29 04:15] VITALS: BP 144/61
[2019-04-29 05:58] LABS: HEMOGLOBIN 7.9 G/DL (13.3-17.7)
[2019-04-29 06:21] LABS: CALCIUM 7.8 MG/DL (8.5-10.1); CREATININE SERUM 1.43 MG/DL (0.60-1.30)
[2019-04-29] MEDS: LEVOTHYROXINE 75 MCG (LEVOTHROID) TABLET PO SCH (06:40)
[2019-04-29] MEDS: LINACLOTIDE 290 MCG (LINZESS) CAPSULE PO SCH (06:40)
[2019-04-29] MEDS: LEVOTHYROXINE 100 MCG (LEVOTHROID) TAB PO SCH (06:40)
[2019-04-29] MEDS: inSUlin ASPART (NovoLOG) 1 UNIT/0.01 ML (CHARGE PER UNIT) SC SCH ×4 (06:41→20:37)
[2019-04-29] MEDS: CATHETER FLUSH 10 ML SYR IV SCH ×4 (06:41→20:38)
[2019-04-29 08:00] VITALS: BP 132/60
[2019-04-29] MEDS: amLODIPine 10 MG (NORVASC) TAB PO SCH (08:14)
--- NOTE | 2019-04-29 09:26 | Progress Note - Hospitalist ---
Subjective HPI/CC On Admission Date Seen by Provider: Apr 29, 2019 Time Seen by Provider: 08:05 Quinn Faria is a 84-year-old male with past medical history of hypertension, type II diabetes mellitus, hypothyroidism, gout, BPH, who presented with bright red blood per rectum. He states that he has had bleeding for a couple weeks. He says that it has not been every time he has gone to the bathroom. He said that it improved but has gotten worse to the past day or 2. He says that since this morning he has gone about 4 times and it is been bright red blood every time. He reports that he did have some black tarry stools this morning as well. He denies any fevers or chills. He denies any chest pain or shortness of breath. He denies any nausea, vomiting, hematemesis, abdominal pain. Subjective/Events-last exam He reports not having any bowel movements since yesterday morning. At that time he did have some blood in his bowel movement. He denies any lightheadedness or dizziness. He denies any chest pain or shortness of breath. Objective Exam Vital Signs Vital Signs Date Time Temp Pulse Resp B/P (MAP) Pulse Ox O2 Delivery O2 Flow Rate FiO2 04/29/19 04:15 37.1 83 21 144/61 (88) 97 Room Air 04/26/19 18:40 10 Capillary Refill : General Appearance: No Apparent Distress, WD/WN HEENT: PERRL/EOMI, Pharynx Normal Neck: Normal Inspection, Supple Respiratory: Lungs Clear, Normal Breath Sounds, No Respiratory Distress Cardiovascular: Regular Rate, Rhythm, No Murmur Gastrointestinal: Normal Bowel Sounds, Non Tender, Soft Extremity: Normal Inspection, Non Tender, Pedal Edema Neurologic/Psychiatric: Alert, Oriented x3, No Motor/Sensory Deficits, Normal Mood/Affect Skin: Normal Color, Warm/Dry Results/Procedures Lab Laboratory Tests 04/28/19 18:25 04/29/19 05:16 Patient resulted labs reviewed. Assessment/Plan Assessment and Plan Assess & Plan/Chief Complaint Diverticular bleed Hematochezia Acute blood loss anemia Acute lower GI bleeding admitted to Dr. Bishop Colonoscopy yesterday with diverticulosis, no active bleeding identified, bright red blood in the sigmoid colon without significant bleeding proximally Hemoglobin 7.9 this morning Received 1 unit PRBC yesterday 3 units PRBCs total this hospitalization Hypertension Hold amlodipine Type II diabetes mellitus Sliding scale insulin CKD3 Creatinine 1.43, stable, appears to be a baseline Continue to monitor and avoid nephrotoxins as able Hypothyroidism Continue levothyroxine BPH Continue Flomax Gout Continue allopurinol DVT prophylaxis: Held due to active major bleeding Diagnosis/Problems Diagnosis/Problems (1) Diverticular hemorrhage Status: Acute (2) Acute lower GI bleeding Status: Acute (3) Acute blood loss anemia Status: Acute (4) Hematochezia Status: Acute (5) HTN (hypertension) Status: Chronic Qualifiers: Hypertension type: essential hypertension Qualified Codes: I10 - Essential (primary) hypertension (6) T2DM (type 2 diabetes mellitus) Status: Chronic (7) BPH (benign prostatic hyperplasia) Status: Chronic (8) Gout Status: Chronic (9) Hypothyroidism Status: Chronic (10) CKD (chronic kidney disease) Status: Chronic Qualifiers: Chronic kidney disease stage: stage 3 (moderate) Qualified Codes: N18.3 - Chronic kidney disease, stage 3 (moderate) Clinical Quality Measures DVT/VTE Risk/Contraindication: Risk Factor Score Per Nursin RFS Level Per Nursing on Admit: 2=Moderate MAIA THOMSON MD Apr 29, 2019 09:26 POS
--- NOTE | 2019-04-29 09:50 | Progress Note ---
Subjective Date Seen by a Provider: Apr 29, 2019 Time Seen by a Provider: 09:30 Subjective/Events-last exam doing ok. no new complaints. still has some marroon stools however incidence decreasing. Objective Exam Vital Signs Date Time Temp Pulse Resp B/P (MAP) Pulse Ox O2 Delivery O2 Flow Rate FiO2 04/29/19 04:15 37.1 83 21 144/61 (88) 97 Room Air 04/29/19 00:00 37.2 71 20 142/59 (86) 95 Room Air 04/28/19 19:40 Room Air 04/28/19 19:31 37.2 81 18 133/62 (85) 99 Room Air 04/28/19 17:06 36.8 80 18 157/62 99 Room Air 04/28/19 15:20 36.6 78 17 152/74 (100) 100 Room Air 04/28/19 15:02 37.2 82 20 153/62 99 Room Air 04/28/19 14:47 37.2 96 18 151/86 Room Air 04/28/19 12:00 36.9 71 18 133/57 (82) 100 Room Air I & O 04/29/19 07:00 Intake Total 3210 ml Output Total 300 ml Balance 2910 ml Capillary Refill : General Appearance: No Apparent Distress HEENT: PERRL/EOMI Neck: Full Range of Motion Respiratory: Chest Non Tender, Lungs Clear, Normal Breath Sounds Cardiovascular: Regular Rate, Rhythm Gastrointestinal: normal bowel sounds, non tender, soft Extremity: Normal Capillary Refill Neurologic/Psychiatric: Alert, Oriented x3 Skin: Normal Color Lymphatic: No Adenopathy Results Lab Laboratory Tests 04/28/19 11:32: Glucometer 283H 04/28/19 16:05: Glucometer 232H 04/28/19 18:25: Hemoglobin 9.4#L, Hematocrit 28L 04/28/19 20:33: Glucometer 329H 04/28/19 21:41: Glucometer 308H 04/29/19 05:16: Hemoglobin 7.9L, Hematocrit 24L, Sodium Level 138, Potassium Level 4.0, Chloride Level 108H, Carbon Dioxide Level 21, Anion Gap 9, Blood Urea Nitrogen 14, Creatinine 1.43H, Estimat Glomerular Filtration Rate 47, BUN/Creatinine Ratio 10, Glucose Level 127H, Calcium Level 7.8L 04/29/19 06:14: Glucometer 149H Assessment/Plan Assessment/Plan Assess & Plan/Chief Complaint lower GI bleed secondary to bleeding sigmoid diverticulosis. advance diet. monitor clinically and H/H. seems decreasing diverticular bleed. due to age and potential risks, will continue with conservative management. patient already s/p right hemicolectomy and the next indicated surgery would encompass a subtotal colectomy. if patient continues to bleed will then transfer to IR for arteriogram and po ssible embolization. Clinical Quality Measures DVT/VTE Risk/Contraindication: Risk Factor Score Per Nursin RFS Level Per Nursing on Admit: 2=Moderate ALEX ARCINIEGA MD Apr 29, 2019 09:50 POS
[2019-04-29 12:00] VITALS: BP 139/60
[2019-04-29 16:00] VITALS: BP 130/61
[2019-04-29] MEDS: PANTOPRAZOLE 40 MG (PROTONIX) VIAL IV SCH (17:21)
[2019-04-29] MEDS: CATHETER FLUSH 10 ML SYR IV PRN (17:21)
[2019-04-29 17:41] LABS: HEMOGLOBIN 8.9 G/DL (13.3-17.7)
[2019-04-29 19:30] VITALS: BP 157/67
[2019-04-29] MEDS: MELATONIN 3 MG TABLET PO SCH (20:37)
[2019-04-29] MEDS: TAMSULOSIN 0.4 MG (FLOMAX) CAP PO SCH (20:37)
[2019-04-29] MEDS: LORATADINE (CLARITIN) 10 MG TAB PO SCH (20:37)
[2019-04-29] MEDS: ALLOPURINOL 300 MG (ZYLOPRIM) TAB PO SCH (20:37)
[2019-04-30] VITALS: BP 131/63
[2019-04-30 06:10] LABS: HEMOGLOBIN 7.8 G/DL (13.3-17.7)
[2019-04-30] MEDS: inSUlin ASPART (NovoLOG) 1 UNIT/0.01 ML (CHARGE PER UNIT) SC SCH ×4 (06:14→20:47)
[2019-04-30] MEDS: LEVOTHYROXINE 100 MCG (LEVOTHROID) TAB PO SCH (06:14)
[2019-04-30] MEDS: LINACLOTIDE 290 MCG (LINZESS) CAPSULE PO SCH (06:14)
[2019-04-30] MEDS: LEVOTHYROXINE 75 MCG (LEVOTHROID) TABLET PO SCH (06:14)
[2019-04-30] MEDS: CATHETER FLUSH 10 ML SYR IV SCH ×3 (06:16→20:49)
[2019-04-30 06:22] LABS: CALCIUM 7.9 MG/DL (8.5-10.1); CREATININE SERUM 1.52 MG/DL (0.60-1.30); POTASSIUM 3.9 MMOL/L (3.6-5.0)
[2019-04-30 08:00] VITALS: BP 135/62
[2019-04-30] MEDS: amLODIPine 10 MG (NORVASC) TAB PO SCH (10:43)
[2019-04-30 11:06] LABS: HEMOGLOBIN 7.8 G/DL (13.3-17.7)
[2019-04-30] MEDS: PANTOPRAZOLE 40 MG (PROTONIX) VIAL IV SCH (12:23)
--- NOTE | 2019-04-30 14:15 | NUR ---
Pastoral care visit.
--- NOTE | 2019-04-30 14:18 | Progress Note - Hospitalist ---
Subjective HPI/CC On Admission Date Seen by Provider: Apr 30, 2019 Time Seen by Provider: 14:13 Quinn Faria is a 84-year-old male with past medical history of hypertension, type II diabetes mellitus, hypothyroidism, gout, BPH, who presented with bright red blood per rectum. He states that he has had bleeding for a couple weeks. He says that it has not been every time he has gone to the bathroom. He said that it improved but has gotten worse to the past day or 2. He says that since this morning he has gone about 4 times and it is been bright red blood every time. He reports that he did have some black tarry stools this morning as well. He denies any fevers or chills. He denies any chest pain or shortness of breath. He denies any nausea, vomiting, hematemesis, abdominal pain. Subjective/Events-last exam Pt reports feeling well. Had a marroon akin this morning but now solid with just streak of blood in stool. None in water. Objective Exam Vital Signs Vital Signs Date Time Temp Pulse Resp B/P (MAP) Pulse Ox O2 Delivery O2 Flow Rate FiO2 04/30/19 08:00 36.8 88 18 135/62 (86) 98 Room Air 04/26/19 18:40 10 Capillary Refill : General Appearance: No Apparent Distress, WD/WN Respiratory: Lungs Clear, No Respiratory Distress Cardiovascular: Regular Rate, Rhythm, No Murmur Gastrointestinal: Normal Bowel Sounds, Non Tender, Soft Neurologic/Psychiatric: Alert, Oriented x3 Results/Procedures Lab Laboratory Tests 04/29/19 17:35 04/30/19 05:15 04/30/19 11:00 Patient resulted labs reviewed. Assessment/Plan Assessment and Plan Assess & Plan/Chief Complaint Diverticular bleed Hematochezia Acute blood loss anemia Acute lower GI bleeding admitted to Dr. Bishop Colonoscopy with diverticulosis, no active bleeding identified, bright red blood in the sigmoid colon without significant bleeding proximally Hemoglobin 7.8 this morning-stable 5 units PRBCs total this hospitalization Hypertension Well controlled amlodipine Type II diabetes mellitus Sliding scale insulin CKD3 Appears to be a baseline Continue to monitor and avoid nephrotoxins as able Hypothyroidism Continue levothyroxine BPH Continue Flomax Gout Continue allopurinol DVT prophylaxis: Held due to active major bleeding Diagnosis/Problems Diagnosis/Problems (1) Diverticular hemorrhage Status: Acute (2) CKD (chronic kidney disease) Status: Chronic Qualifiers: Chronic kidney disease stage: stage 3 (moderate) Qualified Codes: N18.3 - Chronic kidney disease, stage 3 (moderate) (3) T2DM (type 2 diabetes mellitus) Status: Chronic (4) BPH (benign prostatic hyperplasia) Status: Chronic (5) Hypothyroidism Status: Chronic (6) Acute lower GI bleeding Status: Acute (7) Gout Status: Chronic (8) HTN (hypertension) Status: Chronic Qualifiers: Hypertension type: essential hypertension Qualified Codes: I10 - Essential (primary) hypertension (9) Acute blood loss anemia Status: Acute Clinical Quality Measures DVT/VTE Risk/Contraindication: Risk Factor Score Per Nursin RFS Level Per Nursing on Admit: 2=Moderate SHILPA LÓPEZ MD Apr 30, 2019 14:18 POS
--- NOTE | 2019-04-30 15:50 | Progress Note ---
Subjective Date Seen by a Provider: Apr 30, 2019 Time Seen by a Provider: 15:30 Subjective/Events-last exam Patient seen with Dr. Bishop. Patient reports doing well. Did have an episodes of blood in his stool this AM. Had another BM this afternoon with dark streak on the stool and on toilet paper, but none in the stool water. No abdominal pain. No N/V, Fever/chills. Tolerating diet and ambulating. Hgb remaining stable. Objective Exam Vital Signs Date Time Temp Pulse Resp B/P (MAP) Pulse Ox O2 Delivery O2 Flow Rate FiO2 04/30/19 08:00 36.8 88 18 135/62 (86) 98 Room Air 04/30/19 00:00 37.0 84 18 131/63 (85) 98 Room Air 04/29/19 19:40 Room Air 04/29/19 19:30 37.1 73 16 157/67 (97) 100 Room Air 04/29/19 16:00 37.0 71 17 130/61 (84) 98 Room Air I & O 04/30/19 07:00 Intake Total 2560 ml Balance 2560 ml Capillary Refill : General Appearance: No Apparent Distress, WD/WN Neck: Normal Inspection, Non Tender, Supple Respiratory: Normal Breath Sounds, No Accessory Muscle Use, No Respiratory Distress Cardiovascular: Regular Rate, Rhythm, No Murmur Gastrointestinal: normal bowel sounds, non tender, soft Extremity: Normal Capillary Refill, Normal Inspection, Normal Range of Motion Neurologic/Psychiatric: Alert, Oriented x3 Skin: Normal Color, Warm/Dry Results Lab Laboratory Tests 04/29/19 17:35: Hemoglobin 8.9L, Hematocrit 26L 04/29/19 20:30: Glucometer 237H 04/30/19 05:09: Glucometer 214H 04/30/19 05:15: Hemoglobin 7.8L, Hematocrit 24L, Sodium Level 139, Potassium Level 3.9, Chloride Level 109H, Carbon Dioxide Level 22, Anion Gap 8, Blood Urea Nitrogen 13, Creatinine 1.52H, Estimat Glomerular Filtration Rate 44, BUN/Creatinine Ratio 9, Glucose Level 195H, Calcium Level 7.9L 04/30/19 11:00: Hemoglobin 7.8L, Hematocrit 24L 04/30/19 11:43: Glucometer 339H Assessment/Plan Assessment/Plan Assess & Plan/Chief Complaint An 84 year old male with lower GI bleed secondary to bleeding sigmoid diverticulosis. Hgb remaining stable. Continue diet. monitor clinically and H/H. seems decreasing diverticular bleed. due to age and potential risks, will continue with conservative management. patient already s/p right hemicolectomy and the next indicated surgery would encompass a subtotal colectomy. if patient continues to bleed will then transfer to IR for arteriogram and possible embolization. Clinical Quality Measures DVT/VTE Risk/Contraindication: Risk Factor Score Per Nursin RFS Level Per Nursing on Admit: 2=Moderate SRINIVAS FERNANDEZ SEISMIC PROSPECTING OBSERVER HELPER Apr 30, 2019 15:50 POS
[2019-04-30 16:50] VITALS: BP 139/63
[2019-04-30 17:56] LABS: HEMOGLOBIN 7.7 G/DL (13.3-17.7)
[2019-04-30] MEDS: ALLOPURINOL 300 MG (ZYLOPRIM) TAB PO SCH (20:47)
[2019-04-30] MEDS: TAMSULOSIN 0.4 MG (FLOMAX) CAP PO SCH (20:47)
[2019-04-30] MEDS: LORATADINE (CLARITIN) 10 MG TAB PO SCH (20:47)
[2019-04-30] MEDS: MELATONIN 3 MG TABLET PO SCH (20:47)
[2019-04-30] MEDS: DOCUSATE SODIUM 100 MG (COLACE) CAP PO PRN (20:48)
[2019-05-01] VITALS (8 sets, daily range): BP systolic 109–156; BP diastolic 60–67
[2019-05-01 05:24] LABS: HEMOGLOBIN 7.1 G/DL (13.3-17.7)
[2019-05-01 05:27] LABS: CALCIUM 7.8 MG/DL (8.5-10.1); CREATININE SERUM 1.54 MG/DL (0.60-1.30); POTASSIUM 3.7 MMOL/L (3.6-5.0)
[2019-05-01] MEDS: LEVOTHYROXINE 75 MCG (LEVOTHROID) TABLET PO SCH (06:15)
[2019-05-01] MEDS: LEVOTHYROXINE 100 MCG (LEVOTHROID) TAB PO SCH (06:15)
[2019-05-01] MEDS: LINACLOTIDE 290 MCG (LINZESS) CAPSULE PO SCH (06:15)
[2019-05-01] MEDS: inSUlin ASPART (NovoLOG) 1 UNIT/0.01 ML (CHARGE PER UNIT) SC SCH ×4 (06:17→20:56)
[2019-05-01] MEDS: CATHETER FLUSH 10 ML SYR IV SCH ×3 (06:17→23:29)
[2019-05-01] MEDS: amLODIPine 10 MG (NORVASC) TAB PO SCH (09:44)
[2019-05-01] MEDS ORDERED: DOCUSATE SODIUM 100 MG (COLACE) CAP PO ONE (09:45)
[2019-05-01 12:59] LABS: HEMOGLOBIN 6.7 G/DL (13.3-17.7)
--- NOTE | 2019-05-01 13:31 | NUR ---
"RD ASSESSMENT PMHx: DM; hypothyroidism; diverticulosis; bilateral total knee replacement; right hemicolectomy PT INTERACTION: Pt was awake and pleasant during nutrition assessment for LOS. Pt states current appetite is good, and has been for some time. Note pt avg PO intake of 100% x2d, per chart review. Pt states following a regular diet at home, but tries to avoid sugar d/t DM. Pt states no issues with chewing/swallowing food at this time. Pt states no recent issues with n/v at this time. Pt states having some issues with constipation this morning. Note last BM was 04/30 (x3), and pt not currently on bowel regimen at this time. Pt states no recent wt changes. Note unable to determine recent wt hx, per chart review. Pt states current DM management is good, and his avg fasting glucose levels are between 100-120. ABNORMAL NUTRITION-RELATED LAB VALUES LOW: Ca 7.8 HIGH: cr 1.54; glu 184 Est. kcal needs: 7848-0328 kcal | 20-25 kcal/kg Est. Pro needs: 74-93 g Pro | 0.8-1.0 g Pro/kg PES STATEMENT: Given pt's current PO intake, no nutrition diagnosis at this time (NO-1.1) INTERVENTION: Continue with current diet order of Regular diet. Will continue to follow and reassess as pt needs and status change. MONITOR/EVALUATE: PO Intake; Plan of Care; Hydration Status; Weight Status; Lab Values Betzy Blanton, MS, RD, LD"
--- NOTE | 2019-05-01 14:40 | Progress Note ---
Subjective Date Seen by a Provider: May 01, 2019 Time Seen by a Provider: 12:00 Subjective/Events-last exam clinically doing well however still has intermittent episodes of rectal bleed with what he states as constipation and associated LLQ abd pain. may have component diverticulitis. Objective Exam Vital Signs Date Time Temp Pulse Resp B/P (MAP) Pulse Ox O2 Delivery O2 Flow Rate FiO2 05/01/19 08:30 36.6 108 20 109/65 (80) 99 Room Air 05/01/19 00:25 37.2 86 19 156/67 (96) 97 Room Air 04/30/19 20:45 96 Room Air 04/30/19 16:50 36.6 84 18 139/63 (88) 99 Room Air I & O 05/01/19 07:00 Intake Total 1950 ml Balance 1950 ml Capillary Refill : General Appearance: No Apparent Distress HEENT: PERRL/EOMI Neck: Full Range of Motion Respiratory: Chest Non Tender, Lungs Clear, Normal Breath Sounds Cardiovascular: Regular Rate, Rhythm Gastrointestinal: normal bowel sounds, soft, tenderness Extremity: Normal Capillary Refill Neurologic/Psychiatric: Alert, Oriented x3 Skin: Normal Color Lymphatic: No Adenopathy Results Lab Laboratory Tests 04/30/19 16:36: Glucometer 226H 04/30/19 17:44: Hemoglobin 7.7L, Hematocrit 24L 04/30/19 20:37: Glucometer 296H 05/01/19 04:24: Hemoglobin 7.1L, Hematocrit 22L, Sodium Level 137, Potassium Level 3.7, Chloride Level 107, Carbon Dioxide Level 20L, Anion Gap 10, Blood Urea Nitrogen 15, Creatinine 1.54H, Estimat Glomerular Filtration Rate 43, BUN/Creatinine Ratio 10, Glucose Level 184H, Calcium Level 7.8L 05/01/19 05:31: Glucometer 228H 05/01/19 11:07: Glucometer 372H 05/01/19 12:45: Hemoglobin 6.7*L, Hematocrit 21L Assessment/Plan Assessment/Plan Assess & Plan/Chief Complaint lower GI bleed secondary to bleeding sigmoid diverticulosis. advance diet. monitor clinically and H/H. seems decreasing diverticular bleed. due to age and potential risks, will continue with conservative management. patient already s/p right hemicolectomy and the next indicated surgery would encompass a subtotal colectomy. if patient continues to bleed will then transfer to IR for arteriogram and possible embolization. now has LLQ abd pain. will check WBC and start abx. rbc scan in am Clinical Quality Measures DVT/VTE Risk/Contraindication: Risk Factor Score Per Nursin RFS Level Per Nursing on Admit: 2=Moderate ALEX ARCINIEGA MD May 01, 2019 14:40 POS
[2019-05-01] MEDS: NS IV 500 ML 500 ML IV SCH ×3 (15:15→17:00)
[2019-05-01] MEDS: PANTOPRAZOLE 40 MG (PROTONIX) VIAL IV SCH (15:15)
--- NOTE | 2019-05-01 15:15 | NUR ---
BLOOD (PRC'S) VERIFIED. INSTRUCTED PT. ON POSSIBLE REACTIONS AND TO NOTIFIY NURSE IF ANY OCCUR. STAYED WITH PT. X 5 MIN.
[2019-05-01] MEDS: glipiZIDE 5 MG (GLUCOTROL) TAB PO SCH (16:54)
--- NOTE | 2019-05-01 18:00 | NUR ---
AFTER BLOOD INFUSION DONE. THIS NURSE BEGAN CHARTING V/S AND INFUSION COMPLETE, WHEN NOTICED VERIFICATION SCAN DID NOT DOCUMENT. KRISTAL LUJAN ( CERTIFIED FORKLIFT OPERATOR ) NOTIFIED AND INSTRUCTED THIS NURSE TO RE-SCAN PRC'S.
[2019-05-01 19:19] LABS: HEMOGLOBIN 9.4 G/DL (13.3-17.7)
[2019-05-01] MEDS: ALLOPURINOL 300 MG (ZYLOPRIM) TAB PO SCH (20:38)
[2019-05-01] MEDS: MELATONIN 3 MG TABLET PO SCH (20:38)
[2019-05-01] MEDS: TAMSULOSIN 0.4 MG (FLOMAX) CAP PO SCH (20:38)
[2019-05-01] MEDS: LORATADINE (CLARITIN) 10 MG TAB PO SCH (20:38)
[2019-05-01] MEDS: DOCUSATE SODIUM 100 MG (COLACE) CAP PO SCH (20:41)
[2019-05-01] MEDS: CYANOCOBALAMIN 1,000 MCG (VITAMIN B-12) TABLET PO SCH (20:41)
[2019-05-01] MEDS: metroNIDAZOLE 500MG/100ML IVPB 100 ML IV SCH (20:42)
[2019-05-01] MEDS: CIPROFLOXACIN IV 400MG/200ML 200 ML IV SCH (20:42)
[2019-05-01] MEDS ORDERED: NON-FORMULARY MEDICATION 1 EA EA (Cyanocobalamin (Vitamin B-12) (Vitamin B12) 2,500 MCG) PO SCH (21:00)
[2019-05-01] MEDS ORDERED: NON-FORMULARY MEDICATION 1 EA EA (Glipizide 10 MG) PO SCH (21:00)
[2019-05-02 06:25] LABS: BASOPHILS % (AUTO) 0 % (0-10); EOSINOPHILS # (AUTO) 0.1 10^3/uL (0.0-0.3); EOSINOPHILS % (AUTO) 1 % (0-10); HEMATOCRIT 23 % (40-54); HEMOGLOBIN 7.6 G/DL (13.3-17.7); LYMPHOCYTES # (AUTO) 1.3 X 10^3 (1.0-4.0); LYMPHOCYTES % (AUTO) 16 % (12-44); MEAN CORPUSCULAR HEMOGLOBIN 30 PG (25-34); MEAN CORPUSCULAR HGB CONC 33 G/DL (32-36); MEAN CORPUSCULAR VOLUME 92 FL (80-99); MEAN PLATELET VOLUME 10.2 FL (7.4-10.4); MONOCYTES % (AUTO) 12 % (0-12); NEUTROPHILS # (AUTO) 5.8 X 10^3 (1.8-7.8); NEUTROPHILS % (AUTO) 71 % (42-75); PLATELET COUNT 203 10^3/uL (130-400); RED CELL DISTRIBUTION WIDTH 13.6 % (10.0-14.5); WHITE BLOOD COUNT 8.3 10^3/uL (4.3-11.0)
[2019-05-02 06:43] LABS: CREATININE SERUM 1.4 MG/DL (0.60-1.30); POTASSIUM 3.8 MMOL/L (3.6-5.0)
[2019-05-02 08:00] VITALS: BP 132/81
[2019-05-02] MEDS ORDERED: HEParin (CENTRAL IV FLUSH) 500 UNIT/5 ML SYR ONE (09:08)
[2019-05-02] MEDS: inSUlin ASPART (NovoLOG) 1 UNIT/0.01 ML (CHARGE PER UNIT) SC SCH ×4 (10:07→20:33)
[2019-05-02] MEDS: CATHETER FLUSH 10 ML SYR IV SCH ×3 (10:07→21:15)
--- NOTE | 2019-05-02 10:52 | Diagnostic Imaging Report ---
INDICATION: Gastrointestinal bleed. Patient was administered 28.2 mCi technetium 99m pertechnetate labeled to the patient's red blood cells and imaging over the abdomen and pelvis was performed. Normal physiologic activity within the vascular system is noted as well as within the liver and spleen. No abnormal accumulation of activity is seen to suggest active gastrointestinal bleed. IMPRESSION: No evidence of gastrointestinal bleed. Dictated by: Dictated on workstation # [id number]
[2019-05-02] MEDS: metroNIDAZOLE 500MG/100ML IVPB 100 ML IV SCH ×2 (11:02→21:13)
[2019-05-02] MEDS: CIPROFLOXACIN IV 400MG/200ML 200 ML IV SCH ×2 (11:07→21:13)
[2019-05-02] MEDS: PANTOPRAZOLE 40 MG (PROTONIX) VIAL IV SCH (11:08)
[2019-05-02] MEDS: LEVOTHYROXINE 75 MCG (LEVOTHROID) TABLET PO SCH (11:08)
[2019-05-02] MEDS: LEVOTHYROXINE 100 MCG (LEVOTHROID) TAB PO SCH (11:08)
[2019-05-02] MEDS: LINACLOTIDE 290 MCG (LINZESS) CAPSULE PO SCH (11:42)
[2019-05-02] MEDS: glipiZIDE 5 MG (GLUCOTROL) TAB PO SCH ×2 (11:42→16:24)
[2019-05-02] MEDS: DOCUSATE SODIUM 100 MG (COLACE) CAP PO SCH ×2 (11:42→21:13)
[2019-05-02] MEDS: amLODIPine 10 MG (NORVASC) TAB PO SCH (11:43)
--- NOTE | 2019-05-02 14:23 | Progress Note - Hospitalist ---
Subjective HPI/CC On Admission Date Seen by Provider: May 02, 2019 Time Seen by Provider: 14:19 Quinn Faria is a 84-year-old male with past medical history of hypertension, type II diabetes mellitus, hypothyroidism, gout, BPH, who presented with bright red blood per rectum. He states that he has had bleeding for a couple weeks. He says that it has not been every time he has gone to the bathroom. He said that it improved but has gotten worse to the past day or 2. He says that since this morning he has gone about 4 times and it is been bright red blood every time. He reports that he did have some black tarry stools this morning as well. He denies any fevers or chills. He denies any chest pain or shortness of breath. He denies any nausea, vomiting, hematemesis, abdominal pain. Subjective/Events-last exam Pt reports feeling well.No complaints. No bloody BM today. Objective Exam Vital Signs Vital Signs Date Time Temp Pulse Resp B/P (MAP) Pulse Ox O2 Delivery O2 Flow Rate FiO2 05/02/19 08:00 37.0 94 18 132/81 (98) 99 Room Air 04/26/19 18:40 10 Capillary Refill : General Appearance: No Apparent Distress, WD/WN Respiratory: Lungs Clear, No Accessory Muscle Use, No Respiratory Distress Cardiovascular: Regular Rate, Rhythm, No Murmur Neurologic/Psychiatric: Alert, Oriented x3 Results/Procedures Lab Laboratory Tests 05/01/19 19:00 05/02/19 05:50 Patient resulted labs reviewed. Assessment/Plan Assessment and Plan Assess & Plan/Chief Complaint Diverticular bleed Hematochezia Acute blood loss anemia Acute lower GI bleeding admitted to Dr. Bishop Colonoscopy with diverticulosis, no active bleeding identified, bright red blood in the sigmoid colon without significant bleeding proximally RBC scan negative - Discussed with Dr Bishop- will decrejackie blood draws to conserve blood and check iron levels 6 units PRBCs total this hospitalization Hypertension Well controlled amlodipine Type II diabetes mellitus Sliding scale insulin CKD3 Appears to be a baseline Continue to monitor and avoid nephrotoxins as able Hypothyroidism Continue levothyroxine BPH Continue Flomax Gout Continue allopurinol DVT prophylaxis: Held due to active major bleeding Diagnosis/Problems Diagnosis/Problems (1) Diverticular hemorrhage Status: Acute (2) CKD (chronic kidney disease) Status: Chronic Qualifiers: Chronic kidney disease stage: stage 3 (moderate) Qualified Codes: N18.3 - Chronic kidney disease, stage 3 (moderate) (3) T2DM (type 2 diabetes mellitus) Status: Chronic (4) BPH (benign prostatic hyperplasia) Status: Chronic (5) Hypothyroidism Status: Chronic (6) Acute lower GI bleeding Status: Acute (7) Gout Status: Chronic (8) HTN (hypertension) Status: Chronic Qualifiers: Hypertension type: essential hypertension Qualified Codes: I10 - Essential (primary) hypertension (9) Acute blood loss anemia Status: Acute Clinical Quality Measures DVT/VTE Risk/Contraindication: Risk Factor Score Per Nursin RFS Level Per Nursing on Admit: 2=Moderate SHILPA LÓPEZ MD May 02, 2019 2:23 pm
--- NOTE | 2019-05-02 15:25 | Progress Note ---
Subjective Date Seen by a Provider: May 02, 2019 Time Seen by a Provider: 15:00 Subjective/Events-last exam doing well. no BM today or last night. bleeding scan negative. hb relatively stable Objective Exam Vital Signs Date Time Temp Pulse Resp B/P (MAP) Pulse Ox O2 Delivery O2 Flow Rate FiO2 05/02/19 08:00 Room Air 05/02/19 08:00 37.0 94 18 132/81 (98) 99 Room Air 05/01/19 20:30 37.9 84 20 132/60 (84) 98 Room Air 05/01/19 20:05 Room Air 05/01/19 18:00 37.2 90 18 136/60 98 Room Air 05/01/19 17:19 37.1 77 20 128/60 (82) 100 Room Air 05/01/19 16:30 37.1 77 20 128/60 (82) 100 Room Air 05/01/19 15:30 36.6 101 18 138/62 97 Room Air I & O 05/02/19 07:00 Intake Total 1740 ml Output Total 400 ml Balance 1340 ml Capillary Refill : General Appearance: No Apparent Distress HEENT: PERRL/EOMI Neck: Full Range of Motion Respiratory: Chest Non Tender, Lungs Clear, Normal Breath Sounds Cardiovascular: Regular Rate, Rhythm Gastrointestinal: normal bowel sounds, non tender, soft Extremity: Normal Capillary Refill Neurologic/Psychiatric: Alert, Oriented x3 Skin: Normal Color Lymphatic: No Adenopathy Results Lab Laboratory Tests 05/01/19 15:56: Glucometer 312H 05/01/19 19:00: Hemoglobin 9.4#L, Hematocrit 28L 05/01/19 20:13: Glucometer 125H 05/02/19 05:33: Glucometer 125H 05/02/19 05:50: White Blood Count 8.3, Red Blood Count 2.50L, Hemoglobin 7.6L, Hematocrit 23L, Mean Corpuscular Volume 92, Mean Corpuscular Hemoglobin 30, Mean Corpuscular Hemoglobin Concent 33, Red Cell Distribution Width 13.6, Platelet Count 203, Mean Platelet Volume 10.2, Neutrophils (%) (Auto) 71, Lymphocytes (%) (Auto) 16, Monocytes (%) (Auto) 12, Eosinophils (%) (Auto) 1, Basophils (%) (Auto) 0, Neutrophils # (Auto) 5.8, Lymphocytes # (Auto) 1.3, Monocytes # (Auto) 1.0, Eosinophils # (Auto) 0.1, Basophils # (Auto) 0.0, Sodium Level 140, Potassium Level 3.8, Chloride Level 109H, Carbon Dioxide Level 22, Anion Gap 9, Blood Urea Nitrogen 15, Creatinine 1.40H, Estimat Glomerular Filtration Rate 49, BUN/Creatinine Ratio 11, Glucose Level 110H, Calcium Level 8.0L 05/02/19 11:27: Glucometer 174H 05/02/19 14:34: Assessment/Plan Assessment/Plan Assess & Plan/Chief Complaint lower GI bleed secondary to bleeding sigmoid diverticulosis. advance diet. monitor clinically and H/H. seems decreasing diverticular bleed. due to age and potential risks, will continue with conservative management. patient already s/p right hemicolectomy and the next indicated surgery would encompass a subtotal colectomy. if patient continues to bleed will then transfer to IR for arteriogram and possible embolization. now has LLQ abd pain. will check WBC and start abx. rbc scan in am. normal rbc scan. will continue conservative for now. regular diet and stool softeners. Clinical Quality Measures DVT/VTE Risk/Contraindication: Risk Factor Score Per Nursin RFS Level Per Nursing on Admit: 2=Moderate ALEX ARCINIEGA MD May 02, 2019 15:25
[2019-05-02 16:45] VITALS: BP 137/62
[2019-05-02] MEDS: ALLOPURINOL 300 MG (ZYLOPRIM) TAB PO SCH (21:12)
[2019-05-02] MEDS: TAMSULOSIN 0.4 MG (FLOMAX) CAP PO SCH (21:12)
[2019-05-02] MEDS: LORATADINE (CLARITIN) 10 MG TAB PO SCH (21:13)
[2019-05-02] MEDS: CYANOCOBALAMIN 1,000 MCG (VITAMIN B-12) TABLET PO SCH (21:13)
[2019-05-02] MEDS: MELATONIN 3 MG TABLET PO SCH (21:13)
[2019-05-03] VITALS: BP 132/50
[2019-05-03] MEDS: ACETAMINOPHEN 325 MG TABLET PO PRN ×2 (00:29→16:40)
[2019-05-03 04:39] LABS: MEAN PLATELET VOLUME 9.7 FL (7.4-10.4); RED CELL DISTRIBUTION WIDTH 13.8 % (10.0-14.5); WHITE BLOOD COUNT 8.7 10^3/uL (4.3-11.0)
[2019-05-03 04:42] LABS: HEMOGLOBIN 6.7 G/DL (13.3-17.7)
[2019-05-03 04:54] LABS: CALCIUM 7.8 MG/DL (8.5-10.1); CREATININE SERUM 1.6 MG/DL (0.60-1.30); POTASSIUM 3.5 MMOL/L (3.6-5.0)
--- NOTE | 2019-05-03 04:56 | NUR ---
CRITICAL HBG RESULTS OF 6.[address] ARCINIEGA NOTIFIED, NO NEW ORDERS.
[2019-05-03] MEDS: LEVOTHYROXINE 100 MCG (LEVOTHROID) TAB PO SCH (06:17)
[2019-05-03] MEDS: glipiZIDE 5 MG (GLUCOTROL) TAB PO SCH ×2 (06:17→16:39)
[2019-05-03] MEDS: LEVOTHYROXINE 75 MCG (LEVOTHROID) TABLET PO SCH (06:17)
[2019-05-03] MEDS: inSUlin ASPART (NovoLOG) 1 UNIT/0.01 ML (CHARGE PER UNIT) SC SCH ×3 (06:18→16:39)
[2019-05-03] MEDS: LINACLOTIDE 290 MCG (LINZESS) CAPSULE PO SCH (06:18)
[2019-05-03] MEDS: CATHETER FLUSH 10 ML SYR IV SCH ×3 (06:19→22:00)
[2019-05-03 08:00] VITALS: BP 148/74
[2019-05-03] MEDS: metroNIDAZOLE 500MG/100ML IVPB 100 ML IV SCH ×2 (09:19→23:08)
[2019-05-03] MEDS: CIPROFLOXACIN IV 400MG/200ML 200 ML IV SCH ×2 (09:19→23:09)
[2019-05-03] MEDS: amLODIPine 10 MG (NORVASC) TAB PO SCH (09:20)
[2019-05-03] MEDS: DOCUSATE SODIUM 100 MG (COLACE) CAP PO SCH ×2 (09:20→23:11)
[2019-05-03] MEDS: PANTOPRAZOLE 40 MG (PROTONIX) VIAL IV SCH (09:20)
[2019-05-03] MEDS: POLYETHYLENE GLYCOL 17 GM (MIRALAX) PACK PO SCH ×2 (10:46→23:10)
[2019-05-03] MEDS ORDERED: RT-ALBUTEROL SULF 2.5 MG/3 ML PRE-MIX VIAL IH PRN (15:45)
[2019-05-03] MEDS ORDERED: EPINEPHrine INJECTION 1 MG/ML AMP IM PRN (15:45)
[2019-05-03] MEDS ORDERED: diphenhydrAMINE 50 MG/ML INJ (BENADRYL) IV PRN (15:45)
[2019-05-03] MEDS ORDERED: HYDROCORTISONE 100 MG/2 ML (Solu-CORTEF) VIAL IV PRN (15:45)
--- NOTE | 2019-05-03 15:47 | Progress Note - Hospitalist ---
Subjective HPI/CC On Admission Date Seen by Provider: May 03, 2019 Time Seen by Provider: 15:45 Quinn Faria is a 84-year-old male with past medical history of hypertension, type II diabetes mellitus, hypothyroidism, gout, BPH, who presented with bright red blood per rectum. He states that he has had bleeding for a couple weeks. He says that it has not been every time he has gone to the bathroom. He said that it improved but has gotten worse to the past day or 2. He says that since this morning he has gone about 4 times and it is been bright red blood every time. He reports that he did have some black tarry stools this morning as well. He denies any fevers or chills. He denies any chest pain or shortness of breath. He denies any nausea, vomiting, hematemesis, abdominal pain. Subjective/Events-last exam Pt reports doing well. Has further bloody BM. Left it in toilet for us to see. Objective Exam Vital Signs Vital Signs Date Time Temp Pulse Resp B/P (MAP) Pulse Ox O2 Delivery O2 Flow Rate FiO2 05/03/19 08:00 Room Air 05/03/19 08:00 37.1 96 18 148/74 (98) 99 Capillary Refill : General Appearance: No Apparent Distress, WD/WN Respiratory: No Respiratory Distress Neurologic/Psychiatric: Alert, Oriented x3 Results/Procedures Lab Laboratory Tests 05/03/19 04:25 Patient resulted labs reviewed. Assessment/Plan Assessment and Plan Assess & Plan/Chief Complaint Diverticular bleed Hematochezia Acute blood loss anemia Acute lower GI bleeding admitted to Dr. Bishop Colonoscopy with diverticulosis, no active bleeding identified, bright red blood in the sigmoid colon without significant bleeding proximally RBC scan negative - Discussed with Dr Bishop- will decreae blood draws to conserve blood - Iron low- will replace with Infed 6 units PRBCs total this hospitalization Hypertension Well controlled amlodipine Type II diabetes mellitus Sliding scale insulin CKD3 Appears to be a baseline Continue to monitor and avoid nephrotoxins as able Hypothyroidism Continue levothyroxine BPH Continue Flomax Gout Continue allopurinol DVT prophylaxis: Held due to active major bleeding Will round prn as no acute medical needs. Diagnosis/Problems Diagnosis/Problems (1) Diverticular hemorrhage Status: Acute (2) CKD (chronic kidney disease) Status: Chronic Qualifiers: Chronic kidney disease stage: stage 3 (moderate) Qualified Codes: N18.3 - Chronic kidney disease, stage 3 (moderate) (3) T2DM (type 2 diabetes mellitus) Status: Chronic (4) BPH (benign prostatic hyperplasia) Status: Chronic (5) Hypothyroidism Status: Chronic (6) Acute lower GI bleeding Status: Acute (7) Gout Status: Chronic (8) HTN (hypertension) Status: Chronic Qualifiers: Hypertension type: essential hypertension Qualified Codes: I10 - Essential (primary) hypertension (9) Acute blood loss anemia Status: Acute Clinical Quality Measures DVT/VTE Risk/Contraindication: Risk Factor Score Per Nursin RFS Level Per Nursing on Admit: 2=Moderate SHILPA LÓPEZ MD May 03, 2019 15:47
[2019-05-03] MEDS ORDERED: IRON DEXTRAN INJECTION 25 MG in NS (IVPB) 5.75 ML IV NR (16:00)
[2019-05-03] MEDS: NS IV 500 ML 500 ML IV SCH (16:09)
[2019-05-03] MEDS ORDERED: IRON DEXTRAN INJECTION 1,000 MG in NS (IVPB) 250 ML IV ONE (16:15)
[2019-05-03 16:22] VITALS: BP 129/70
--- NOTE | 2019-05-03 16:42 | NUR ---
IV IRON INFUSING. INSTRUCTED PT. ON POSSIBLE REACTIONS. TEMP 38.2. DR. ARCINIEGA NOTIFIED OF FEVER. TYLENOL GIVEN P.O.
--- NOTE | 2019-05-03 16:58 | NUR ---
TEMP=38. BP-123/55. PULE-88 O2 SAT-98 PER R/A RESP-18. SKIN W/D. NO REACTION NOTED.
--- NOTE | 2019-05-03 17:18 | Progress Note ---
Subjective Date Seen by a Provider: May 03, 2019 Time Seen by a Provider: 16:15 Subjective/Events-last exam Patient reports doing ok. Did have 2 episodes of bright red blood in stool however RN reports that it is less than it has been. Patient reports chills. Was reported to have fever upon routine VS. Denies any other symptoms. Tolerating diet and ambulating. Objective Exam Vital Signs Date Time Temp Pulse Resp B/P (MAP) Pulse Ox O2 Delivery O2 Flow Rate FiO2 05/03/19 16:40 38.2 05/03/19 16:22 38.2 89 18 129/70 (89) 99 Room Air 05/03/19 08:00 Room Air 05/03/19 08:00 37.1 96 18 148/74 (98) 99 Room Air 05/03/19 04:45 36.6 05/03/19 01:30 38.2 05/03/19 00:29 38.3 05/03/19 00:00 38.2 83 20 132/50 (77) 98 Room Air 05/02/19 20:40 Room Air I & O 05/03/19 07:00 Intake Total 1680 ml Balance 1680 ml Capillary Refill : General Appearance: No Apparent Distress, WD/WN HEENT: PERRL/EOMI Neck: Full Range of Motion, Normal Inspection, Non Tender, Supple Respiratory: Normal Breath Sounds, No Accessory Muscle Use, No Respiratory Distress Cardiovascular: Regular Rate, Rhythm, No Murmur Gastrointestinal: normal bowel sounds, non tender, soft Extremity: Normal Capillary Refill, Normal Inspection, Normal Range of Motion, Non Tender Neurologic/Psychiatric: Alert, Oriented x3 Skin: Normal Color, Warm/Dry Results Lab Laboratory Tests 05/02/19 20:19: Glucometer 136H 05/03/19 04:25: White Blood Count 8.7, Red Blood Count 2.23L, Hemoglobin 6.7*L, Hematocrit 21L, Mean Corpuscular Volume 92, Mean Corpuscular Hemoglobin 30, Mean Corpuscular Hemoglobin Concent 33, Red Cell Distribution Width 13.8, Platelet Count 201, Mean Platelet Volume 9.7, Sodium Level 139, Potassium Level 3.5L, Chloride Level 108H, Carbon Dioxide Level 20L, Anion Gap 11, Blood Urea Nitrogen 17, Creatinine 1.60H, Estimat Glomerular Filtration Rate 42, BUN/Creatinine Ratio 11, Glucose Level 66L, Calcium Level 7.8L 05/03/19 11:31: Glucometer 264H 05/03/19 16:22: Glucometer 217H Assessment/Plan Assessment/Plan Assess & Plan/Chief Complaint An 84 year old male with lower GI bleed secondary to bleeding sigmoid diverticulosis. Hgb 6.7 this AM. Medical starting Iron infusion. Continue diet. monitor clinically and H/H. seems decreasing diverticular bleed. due to age and potential risks, will continue with conservative management. patient already s/p right hemicolectomy and the next indicated surgery would encompass a subtotal colectomy. if patient continues to bleed will then transfer to IR for arteriogram and possible embolization. normal rbc scan. will continue conservative for now. regular diet and stool softeners. Will check chest x-ray and UA due to fever. Clinical Quality Measures DVT/VTE Risk/Contraindication: Risk Factor Score Per Nursin RFS Level Per Nursing on Admit: 2=Moderate SRINIVAS FERNANDEZ APRN May 03, 2019 17:18
[2019-05-03 19:28] LABS: INR 1.1 (0.8-1.4); PROTHROMBIN TIME PATIENT 14.4 SEC (12.2-14.7)
--- NOTE | 2019-05-03 19:28 | Diagnostic Imaging Report ---
INDICATION: Fever. COMPARISON: Comparison is made with a prior study from June 08, 2013. FINDINGS: There are no findings to suggest alveolar infiltrate or consolidation. There is no effusion or pneumothorax. There are stable calcifications at the right base. Heart size is stable. Pulmonary vascularity appears appropriate without failure. IMPRESSION: Stable radiographic appearance of the chest. No new alveolar infiltrate to suggest pneumonia demonstrated. Dictated by: Dictated on workstation # [id number]
[2019-05-03] MEDS ORDERED: POLYETHYLENE GLYCOL 17 GM (MIRALAX) PACK PO SCH (21:00)
[2019-05-03 21:15] LABS: BILIRUBIN,URINE NEGATIVE (NEGATIVE); CLARITY,URINE CLEAR; COLOR,URINE YELLOW; GLUCOSE, URINE (UA) NEGATIVE (NEGATIVE); KETONES,URINE NEGATIVE (NEGATIVE); LEUKOCYTE ESTERASE ,URINE NEGATIVE (NEGATIVE); NITRITE,URINE NEGATIVE (NEGATIVE); PH,URINE 5.5 (5-9); PROTEIN,URINE NEGATIVE (NEGATIVE)
[2019-05-03 21:43] LABS: BACTERIA,URINE MODERATE /HPF; WBC,URINE RARE /HPF
[2019-05-03 21:44] LABS: YEAST,URINE FEW /HPF
[2019-05-03] MEDS: ALLOPURINOL 300 MG (ZYLOPRIM) TAB PO SCH (23:09)
[2019-05-03] MEDS: CYANOCOBALAMIN 1,000 MCG (VITAMIN B-12) TABLET PO SCH (23:10)
[2019-05-03] MEDS: TAMSULOSIN 0.4 MG (FLOMAX) CAP PO SCH (23:11)
[2019-05-03] MEDS: LORATADINE (CLARITIN) 10 MG TAB PO SCH (23:11)
[2019-05-03] MEDS: MELATONIN 3 MG TABLET PO SCH (23:11)
[2019-05-04] VITALS (11 sets, daily range): BP systolic 122–159; BP diastolic 56–70
[2019-05-04] MEDS: ACETAMINOPHEN 325 MG TABLET PO PRN ×2 (01:53→20:08)
[2019-05-04 05:26] LABS: MEAN PLATELET VOLUME 9.4 FL (7.4-10.4); RED CELL DISTRIBUTION WIDTH 13.1 % (10.0-14.5); WHITE BLOOD COUNT 6.6 10^3/uL (4.3-11.0)
[2019-05-04 05:32] LABS: HEMOGLOBIN 5.7 G/DL (13.3-17.7)
[2019-05-04] MEDS: inSUlin ASPART (NovoLOG) 1 UNIT/0.01 ML (CHARGE PER UNIT) SC SCH ×5 (06:26→21:07)
[2019-05-04] MEDS: LEVOTHYROXINE 75 MCG (LEVOTHROID) TABLET PO SCH (06:48)
[2019-05-04] MEDS: glipiZIDE 5 MG (GLUCOTROL) TAB PO SCH ×2 (06:48→16:32)
[2019-05-04] MEDS: LEVOTHYROXINE 100 MCG (LEVOTHROID) TAB PO SCH (06:48)
[2019-05-04] MEDS: CATHETER FLUSH 10 ML SYR IV SCH ×3 (06:49→20:05)
[2019-05-04] MEDS: NS IV 500 ML 500 ML IV SCH ×6 (08:38→20:00)
[2019-05-04] MEDS: amLODIPine 10 MG (NORVASC) TAB PO SCH (08:41)
[2019-05-04] MEDS: DOCUSATE SODIUM 100 MG (COLACE) CAP PO SCH ×2 (08:41→20:00)
[2019-05-04] MEDS: POLYETHYLENE GLYCOL 17 GM (MIRALAX) PACK PO SCH ×2 (08:42→20:03)
[2019-05-04] MEDS: LINACLOTIDE 290 MCG (LINZESS) CAPSULE PO SCH (08:53)
[2019-05-04] MEDS: metroNIDAZOLE 500MG/100ML IVPB 100 ML IV SCH ×2 (09:59→21:06)
[2019-05-04] MEDS: CIPROFLOXACIN IV 400MG/200ML 200 ML IV SCH ×2 (10:00→20:00)
[2019-05-04] MEDS: PANTOPRAZOLE 40 MG (PROTONIX) VIAL IV SCH (10:00)
--- NOTE | 2019-05-04 16:36 | Progress Note ---
Subjective Date Seen by a Provider: May 04, 2019 Time Seen by a Provider: 15:30 Subjective/Events-last exam Patient seen with Dr. Bishop. Patient reports doing well. Did report 3 episodes of Bright red blood in stool today. Does report fatigue and some mild LLQ abdominal discomfort but otherwise no symptoms reported. Tolerating diet. Ambulating well. Objective Exam Vital Signs Date Time Temp Pulse Resp B/P (MAP) Pulse Ox O2 Delivery O2 Flow Rate FiO2 05/04/19 15:48 37.8 95 18 125/58 (80) 96 Room Air 05/04/19 09:57 37.2 85 20 130/62 97 Room Air 05/04/19 08:00 Room Air 05/04/19 08:00 37.1 82 20 122/69 96 Room Air 05/04/19 08:00 37.0 89 18 131/63 (85) 98 Room Air 05/04/19 07:40 37.0 89 18 131/63 98 Room Air 05/04/19 04:15 38.2 85 18 124/58 94 Room Air 05/04/19 02:30 38.0 05/04/19 02:15 38.0 82 18 126/60 95 Room Air 05/04/19 01:55 38.0 86 18 138/61 96 Room Air 05/04/19 00:00 38.0 92 20 159/70 (99) 96 Room Air 05/03/19 20:30 98 Room Air 05/03/19 17:12 38.0 05/03/19 16:40 38.2 I & O 05/04/19 07:00 Intake Total 1525 ml Output Total 800 ml Balance 725 ml Capillary Refill : General Appearance: No Apparent Distress, WD/WN Neck: Full Range of Motion, Normal Inspection, Non Tender, Supple Respiratory: Normal Breath Sounds, No Accessory Muscle Use, No Respiratory Distress Cardiovascular: Regular Rate, Rhythm, No Murmur Gastrointestinal: normal bowel sounds, soft, tenderness (LLQ with deep palpat ion. No palpable masses) Extremity: Normal Capillary Refill, Normal Inspection, Normal Range of Motion Neurologic/Psychiatric: Alert, Oriented x3 Skin: Normal Color, Warm/Dry Results Lab Laboratory Tests 05/03/19 18:05: Prothrombin Time 14.4, INR Comment 1.1, Activated Partial Thromboplast Time 44H 05/03/19 21:00: Urine Color YELLOW, Urine Clarity CLEAR, Urine pH 5.5, Urine Specific Rosser <=1.005, Urine Protein NEGATIVE, Urine Glucose (UA) NEGATIVE, Urine Ketones NEGATIVE, Urine Nitrite NEGATIVE, Urine Bilirubin NEGATIVE, Urine Urobilinogen 0.2, Urine Leukocyte Esterase NEGATIVE, Urine RBC (Auto) NEGATIVE, Urine RBC NONE, Urine WBC RARE, Urine Crystals NONE, Urine Bacteria MODERATEH, Urine Casts NONE, Urine Mucus NEGATIVE, Urine Yeast FEWH, Urine Culture Indicated NO 05/03/19 21:38: Glucometer 185H 05/04/19 05:15: White Blood Count 6.6, Red Blood Count 1.87L, Hemoglobin 5.7*L, Hematocrit 17*L, Mean Corpuscular Volume 93, Mean Corpuscular Hemoglobin 30, Mean Corpuscular Hemoglobin Concent 33, Red Cell Distribution Width 13.1, Platelet Count 185, Mean Platelet Volume 9.4 05/04/19 05:16: Glucometer 199H 05/04/19 12:13: Glucometer 215H 05/04/19 16:09: Glucometer 298H Assessment/Plan Assessment/Plan Assess & Plan/Chief Complaint An 84 year old male with lower GI bleed secondary to bleeding sigmoid diverticulosis. Hgb 5.7 this AM and received blood transfusion. Iron infusion and platelets yesterday. Continue diet. monitor clinically and H/H. Diverticular bleed. due to age and potential risks, will continue with conservative management. patient already s/p right hemicolectomy and the next indicated surgery would encompass a subtotal colectomy. if patient continues to bleed will then transfer to IR for arteriogram and possible embolization. normal rbc scan. will continue conservative for now. regular diet and stool softeners. Chest x-ray and UA normal. PT/INR WNL PTT was elevated at 44 and consulted hematology for further workup for hypocoagulation. Clinical Quality Measures DVT/VTE Risk/Contraindication: Risk Factor Score Per Nursin RFS Level Per Nursing on Admit: 2=Moderate SRINIVAS FERNANDEZ RELOCATION MANAGER May 04, 2019 16:36
[2019-05-04 17:02] LABS: HEMOGLOBIN 6.6 G/DL (13.3-17.7)
[2019-05-04] MEDS: TAMSULOSIN 0.4 MG (FLOMAX) CAP PO SCH (20:00)
[2019-05-04] MEDS: LORATADINE (CLARITIN) 10 MG TAB PO SCH (20:01)
[2019-05-04] MEDS: ALLOPURINOL 300 MG (ZYLOPRIM) TAB PO SCH (20:01)
[2019-05-04] MEDS: MELATONIN 3 MG TABLET PO SCH (20:01)
[2019-05-04] MEDS: CYANOCOBALAMIN 1,000 MCG (VITAMIN B-12) TABLET PO SCH (20:02)
[2019-05-05 01:08] VITALS: BP_SYST 127; BP_SYST 131; BP_DIAS 60
[2019-05-05 05:30] LABS: HEMOGLOBIN 7.4 G/DL (13.3-17.7); MEAN PLATELET VOLUME 9.9 FL (7.4-10.4); RED CELL DISTRIBUTION WIDTH 14.4 % (10.0-14.5); WHITE BLOOD COUNT 5.8 10^3/uL (4.3-11.0)
[2019-05-05] MEDS: inSUlin ASPART (NovoLOG) 1 UNIT/0.01 ML (CHARGE PER UNIT) SC SCH ×4 (06:22→20:52)
[2019-05-05] MEDS: LINACLOTIDE 290 MCG (LINZESS) CAPSULE PO SCH (06:25)
[2019-05-05] MEDS: CATHETER FLUSH 10 ML SYR IV SCH ×3 (06:26→20:00)
[2019-05-05] MEDS: glipiZIDE 5 MG (GLUCOTROL) TAB PO SCH ×2 (06:26→16:16)
[2019-05-05] MEDS: LEVOTHYROXINE 75 MCG (LEVOTHROID) TABLET PO SCH (06:26)
[2019-05-05] MEDS: LEVOTHYROXINE 100 MCG (LEVOTHROID) TAB PO SCH (06:26)
[2019-05-05] MEDS: POLYETHYLENE GLYCOL 17 GM (MIRALAX) PACK PO SCH ×2 (06:49→19:58)
[2019-05-05] MEDS: DOCUSATE SODIUM 100 MG (COLACE) CAP PO SCH ×2 (06:49→19:58)
[2019-05-05 08:00] VITALS: BP 132/61
[2019-05-05] MEDS: metroNIDAZOLE 500MG/100ML IVPB 100 ML IV SCH ×2 (08:18→20:08)
[2019-05-05] MEDS: CIPROFLOXACIN IV 400MG/200ML 200 ML IV SCH ×2 (08:18→20:00)
[2019-05-05] MEDS: amLODIPine 10 MG (NORVASC) TAB PO SCH (08:18)
[2019-05-05] MEDS: PANTOPRAZOLE 40 MG (PROTONIX) VIAL IV SCH (08:18)
--- NOTE | 2019-05-05 12:03 | Progress Note ---
Subjective Date Seen by a Provider: May 05, 2019 Time Seen by a Provider: 11:40 Subjective/Events-last exam no complaints. no abd pain. no BM today. Hb relatively stable at 7.4 after 2 units yesterday. tolerating diet. Objective Exam Vital Signs Date Time Temp Pulse Resp B/P (MAP) Pulse Ox O2 Delivery O2 Flow Rate FiO2 05/05/19 08:00 37.6 99 18 132/61 (84) 98 Room Air 05/05/19 01:08 37.1 82 18 131/60 (83) 97 Room Air 05/05/19 01:08 37.1 82 18 131/60 97 Room Air 05/04/19 22:50 37.0 90 18 127/60 96 Room Air 05/04/19 22:30 37.0 97 18 133/62 98 Room Air 05/04/19 22:18 37.3 05/04/19 22:00 37.5 05/04/19 21:42 37.7 05/04/19 21:41 37.7 05/04/19 20:10 Room Air 05/04/19 20:08 38.7 05/04/19 20:04 38.7 88 18 129/56 (80) 97 Room Air 05/04/19 15:48 37.8 95 18 125/58 (80) 96 Room Air I & O 05/05/19 07:00 Intake Total 3162 ml Output Total 890 ml Balance 2272 ml Capillary Refill : Less Than 3 Seconds General Appearance: No Apparent Distress HEENT: PERRL/EOMI Neck: Full Range of Motion Respiratory: Chest Non Tender, Lungs Clear, Normal Breath Sounds Cardiovascular: Regular Rate, Rhythm Gastrointestinal: normal bowel sounds, non tender, soft Extremity: Normal Capillary Refill Neurologic/Psychiatric: Alert, Oriented x3 Skin: Normal Color Lymphatic: No Adenopathy Results Lab Laboratory Tests 05/04/19 12:13: Glucometer 215H 05/04/19 16:09: Glucometer 298H 05/04/19 16:38: Hemoglobin 6.6*L, Hematocrit 20*L 05/04/19 20:31: Glucometer 254H 05/05/19 05:22: White Blood Count 5.8, Red Blood Count 2.54L, Hemoglobin 7.4L, Hematocrit 23L, Mean Corpuscular Volume 89, Mean Corpuscular Hemoglobin 29, Mean Corpuscular Hemoglobin Concent 33, Red Cell Distribution Width 14.4, Platelet Count 201, Mean Platelet Volume 9.9 05/05/19 05:53: Glucometer 153H Assessment/Plan Assessment/Plan Assess & Plan/Chief Complaint lower GI bleed secondary to bleeding sigmoid diverticulosis. advance diet. monitor clinically and H/H. seems decreasing diverticular bleed. due to age and potential risks, will continue with conservative management. patient already s/p right hemicolectomy and the next indicated surgery would encompass a subtotal colectomy. if patient continues to bleed will then transfer to IR for arteriogram and possible embolization. now has LLQ abd pain. will check WBC and start abx. rbc scan in am. normal rbc scan. will continue conservative for now. regular diet and stool softeners. elevated PTT. 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 may infuse cryoprecipitate if bleeding continues. Clinical Quality Measures DVT/VTE Risk/Contraindication: Risk Factor Score Per Nursin RFS Level Per Nursing on Admit: 2=Moderate ALEX ARCINIEGA MD May 05, 2019 12:03
[2019-05-05 15:42] VITALS: BP 144/64
[2019-05-05] MEDS: NS IV 500 ML 500 ML IV SCH (17:54)
[2019-05-05] MEDS: LORazepam 1 MG (ATIVAN) TAB PO PRN (19:58)
[2019-05-05] MEDS: ACETAMINOPHEN 325 MG TABLET PO PRN (19:58)
[2019-05-05] MEDS: ALLOPURINOL 300 MG (ZYLOPRIM) TAB PO SCH (19:59)
[2019-05-05] MEDS: CYANOCOBALAMIN 1,000 MCG (VITAMIN B-12) TABLET PO SCH (19:59)
[2019-05-05] MEDS: TAMSULOSIN 0.4 MG (FLOMAX) CAP PO SCH (19:59)
[2019-05-05] MEDS: LORATADINE (CLARITIN) 10 MG TAB PO SCH (19:59)
[2019-05-05] MEDS: MELATONIN 3 MG TABLET PO SCH (20:00)
[2019-05-06] VITALS: BP 130/69
[2019-05-06] MEDS: glipiZIDE 5 MG (GLUCOTROL) TAB PO SCH ×2 (05:34→16:48)
[2019-05-06] MEDS: LEVOTHYROXINE 100 MCG (LEVOTHROID) TAB PO SCH (05:34)
[2019-05-06] MEDS: LINACLOTIDE 290 MCG (LINZESS) CAPSULE PO SCH (05:35)
[2019-05-06] MEDS: LEVOTHYROXINE 75 MCG (LEVOTHROID) TABLET PO SCH (05:35)
[2019-05-06] MEDS: inSUlin ASPART (NovoLOG) 1 UNIT/0.01 ML (CHARGE PER UNIT) SC SCH ×4 (05:35→21:17)
[2019-05-06] MEDS: CATHETER FLUSH 10 ML SYR IV SCH ×3 (05:35→20:22)
[2019-05-06 05:43] LABS: MEAN PLATELET VOLUME 9.8 FL (7.4-10.4); RED CELL DISTRIBUTION WIDTH 14.9 % (10.0-14.5); WHITE BLOOD COUNT 7.3 10^3/uL (4.3-11.0)
[2019-05-06 05:44] LABS: HEMOGLOBIN 6.9 G/DL (13.3-17.7)
--- NOTE | 2019-05-06 06:12 | NUR ---
Dr. Bishop notified of hgb at 6.9. No new orders rec.
[2019-05-06] MEDS: PANTOPRAZOLE 40 MG (PROTONIX) VIAL IV SCH (07:57)
[2019-05-06] MEDS: DOCUSATE SODIUM 100 MG (COLACE) CAP PO SCH ×2 (07:58→20:22)
[2019-05-06] MEDS: amLODIPine 10 MG (NORVASC) TAB PO SCH (07:58)
[2019-05-06] MEDS: metroNIDAZOLE 500MG/100ML IVPB 100 ML IV SCH (07:58)
[2019-05-06] MEDS: CIPROFLOXACIN IV 400MG/200ML 200 ML IV SCH (07:59)
[2019-05-06] MEDS: POLYETHYLENE GLYCOL 17 GM (MIRALAX) PACK PO SCH ×2 (07:59→20:25)
[2019-05-06 08:00] VITALS: BP 139/71
--- NOTE | 2019-05-06 08:00 | NUR ---
FLUID PULLED TO HANG WITH ANTIBIOTICS AND ANTI FUNGAL ONLY
[2019-05-06] MEDS: NS IV 500 ML 500 ML IV SCH (08:05)
--- NOTE | 2019-05-06 10:20 | NUR ---
"RD ASSESSMENT PMHx: DM; hypothyroidism; diverticulosis; bilateral total knee replacements; right hemicolectomy PT INTERACTION: Pt was awake and pleasant during nutrition follow-up. Pt states he has been eating well since last assessment. Note pt avg PO intake of 83% x2d, per chart review. Pt states no recent issues with n/v since last assessment. Pt states some recent issues with constipation since last assessment. Note last BM was 05/05, per chart review. ABNORMAL NUTRITION-RELATED LAB VALUES LOW: K 3.5; glu 66; Ca 7.8 HIGH: Cl 108; cr 1.60 Est. kcal needs: 7206-5841 kcal | 15-18 kcal/kg Est. Pro needs: 81-101 g Pro | 0.8-1.0 g Pro/kg PES STATEMENT: Given pt's current PO intake, no nutrition diagnosis at this time (NO-1.1) INTERVENTION: Continue with current diet order of CHO 60g/m 3snack diet. Will continue to follow and reassess as pt needs and status change. MONITOR/EVALUATE: PO Intake; Plan of Care; Hydration Status; Weight Status; Lab Values Betzy Blanton, MS, RD, LD"
--- NOTE | 2019-05-06 11:54 | Progress Note ---
Subjective Date Seen by a Provider: May 06, 2019 Time Seen by a Provider: 11:30 Subjective/Events-last exam still having bleeding. no pain. asymptomatic otherwise. has now continued to bleed for approximately 4 weeks total. Objective Exam Vital Signs Date Time Temp Pulse Resp B/P (MAP) Pulse Ox O2 Delivery O2 Flow Rate FiO2 05/06/19 08:00 98 Room Air 05/06/19 08:00 37.4 108 20 139/71 (93) 100 Room Air 05/06/19 00:00 37.2 90 20 130/69 (89) 98 Room Air 05/05/19 22:04 37.7 05/05/19 20:00 Room Air 05/05/19 19:58 38.2 05/05/19 19:49 38.2 05/05/19 15:42 37.2 97 20 144/64 (90) 99 Room Air I & O 05/06/19 07:00 Intake Total 2310 ml Output Total 200 ml Balance 2110 ml Capillary Refill : Less Than 3 Seconds General Appearance: No Apparent Distress HEENT: PERRL/EOMI Neck: Full Range of Motion Respiratory: Chest Non Tender, Lungs Clear, Normal Breath Sounds Cardiovascular: Regular Rate, Rhythm Gastrointestinal: normal bowel sounds, non tender, soft Extremity: Normal Capillary Refill Skin: Normal Color Lymphatic: No Adenopathy Results Lab Laboratory Tests 05/05/19 15:47: Glucometer 237H 05/05/19 20:43: Glucometer 237H 05/06/19 05:33: White Blood Count 7.3, Red Blood Count 2.31L, Hemoglobin 6.9*L, Hematocrit 21L, Mean Corpuscular Volume 91, Mean Corpuscular Hemoglobin 30, Mean Corpuscular Hemoglobin Concent 33, Red Cell Distribution Width 14.9H, Platelet Count 213, Mean Platelet Volume 9.8 05/06/19 05:34: Glucometer 121H Assessment/Plan Assessment/Plan Assess & Plan/Chief Complaint lower GI bleed secondary to bleeding sigmoid diverticulosis. advance diet. monitor clinically and H/H. seems decreasing diverticular bleed. due to age and potential risks, will continue with conservative management. patient already s/p right hemicolectomy and the next indicated surgery would encompass a subtotal colectomy. if patient continues to bleed will then transfer to IR for arteriogram and possible embolization. now has LLQ abd pain. will check WBC and start abx. rbc scan in am. normal rbc scan. will continue conservative for now. regular diet and stool softeners. has now had slow continued bleeding for approximately 4 weeks total. elevated PTT. 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 may infuse cryoprecipitate if bleeding continues. Clinical Quality Measures DVT/VTE Risk/Contraindication: Risk Factor Score Per Nursin RFS Level Per Nursing on Admit: 2=Moderate ALEX ARCINIEGA MD May 06, 2019 11:54
--- NOTE | 2019-05-06 12:00 | NUR ---
Received report on patient from Manju LUJAN in icu. Patient now in room resting comfortably. I have assessed the patient and agree with Manju's assessment of the patient.I see no changes at this time.
[2019-05-06 12:54] VITALS: BP 144/67
[2019-05-06 13:27] VITALS: BP 122/45
[2019-05-06 15:00] VITALS: BP 130/57
[2019-05-06 15:15] VITALS: BP 134/57
[2019-05-06] MEDS: ACETAMINOPHEN 325 MG TABLET PO PRN (15:28)
--- NOTE | 2019-05-06 15:33 | Consultation ---
History of Present Illness History of Present Illness Patient Consulted On(medardo/time) 05/06/19 15:28 Date Seen by Provider: May 06, 2019 Time Seen by Provider: 15:28 History of Present Illness Mr. Faria is an 84 yo male with DM, HTN, hypothyroidism, psoriasis and previous history of major GI bleed secondary to polypectomy 1 year ago at [facility]. He was admitted on 04/24/19 when he was noted to have a 4g/dl drop in hgb as an outpatient. Since his admission, he has frequently had daily blood in his stools. Today was the first time since admission that he did not have visible blood in his stool. Since admission, he has had 8 units of blood, 1 unit of platelets and 1 unit of cryoprecipitate that was just given today. Prior to checking his PTT on 05/03/19, he had 6 units of blood. Patient reports he began to have bright red blood in his stool around the time of Thanksgi and has persisted almost daily until now. Although he does not have easy bruising or bleeding, he has noticed in the past year that it sometime s he bleeds more after laboratory blood draws. He has a history of bilateral total knee arthroplasty, but did not have any major bleeding with either surgery. He denies any major bleeding or clotting history in the family. Allergies and Home Medications Allergies Coded Allergies: No Known Drug Allergies (Verified Allergy, Unknown, 07/29/09) Home Medications Allopurinol 300 Mg Tablet, 300 MG PO HS, (Reported) Amlodipine Besylate 10 Mg Tablet, 10 MG PO DAILY, (Reported) Cyanocobalamin (Vitamin B-12) 2,500 Mcg Tablet, 2,500 MCG PO HS, (Reported) Dulaglutide 0.75 Mg/0.5 Ml Pen.injctr, 0.75 MG SQ TUESDAY, (Reported) Glipizide 10 Mg Tablet, 10 MG PO BID, (Reported) Levocetirizine Dihydrochloride 5 Mg Tablet, 5 MG PO HS, (Reported) Levothyroxine Sodium 175 Mcg Tablet, 175 MCG PO DAILY, (Reported) Linaclotide 290 Mcg Capsule, 290 MCG PO DAILY, (Reported) Meloxicam 15 Mg Tablet, 7.5 MG PO DAILY, (Reported) TAKES 1/2 OF A 15MG TO RQUAL 7.5MG Methotrexate Sodium 2.5 Mg Tablet, 12.5 MG PO THURSDAY, (Reported) TAKES 5 (2.5 MG) TABS TO EQUAL 12.5 MG Tamsulosin HCl 0.4 Mg Cap, 0.4 MG PO HS, (Reported) [Test 20%/Chrysin-10%] , 0.5 GM TOP DAILY, (Reported) T20 C10 [employer] M[employer]ER Patient Home Medication List Home Medication List Reviewed: Yes Past Htwywad-Scpzaq-Fhlhzl Hx Past Med/Social Hx: Reviewed Nursing Past Med/Soc Hx Patient Social History Alcohol Use: Denies Use Recreational Drug Use: No Recent Foreign Travel: No Contact w/Someone Who Travel: No Recent Infectious Disease Expo: No Recent Hopitalizations: Yes Immunizations Up To Date Tetanus Booster (TDap): Unknown Date of Pneumonia Vaccine: Feb 13, 2017 Date of Influenza Vaccine: Feb 13, 2019 Seasonal Allergies Seasonal Allergies: Yes Past Medical History Surgeries: Yes (BILAT KNEES REPLACEMENTS , COLON SURG ) Respiratory: No Currently Using CPAP: No Currently Using BIPAP: No Cardiac: Yes Neurological: No Reproductive Disorders: No Sexually Transmitted Disease: No HIV/AIDS: No Genitourinary: No Gastrointestinal: No (colon 1/3 removed surg) Chronic Constipation, Hemorrhoids Musculoskeletal: Yes (BILAT KNEE REPLACEMENT ) Arthritis Endocrine: Yes Hypothyroidsim, Diabetes, Non-Insulin dep Are Your Blood Sugars Over 250: No Cataract Cancer: No Psychosocial: No Integumentary: No (psoriasis r leg) Psoriasis Blood Disorders: Yes Adverse Reaction/Blood Tranf: No Family Medical History Cancer 03 FATHER Family history: Diabetes mellitus 03 MOTHER 09 BROTHER Hereditary disease SON (ELEONORA LAKHANI) No Family History of: Abdominal aortic aneurysm Congestive heart failure Family history: Allergy Family history: Breast disease Family history: Cardiovascular disease Family history: Gastrointestinal disease Family history: Thyroid disorder History of - respiratory disease Myocardial infarction Seizure disorder Review of Systems-General Constitutional: no symptoms reported EENTM: no symptoms reported Respiratory: no symptoms reported Cardiovascular: no symptoms reported Gastrointestinal: other (bright red blood per rectum) Genitourinary: no symptoms reported Musculoskeletal: no symptoms reported Skin: no symptoms reported Psychiatric/Neurological: No Symptoms Reported Physical Exam-General Problems Physical Exam Vital Signs Vital Signs - First Documented 04/30/19 00:00 Temp 37.0 Pulse 84 Resp 18 B/P (MAP) 131/63 (85) Pulse Ox 98 O2 Delivery Room Air Capillary Refill : Less Than 3 Seconds General Appearance: WD/WN, no apparent distress Eyes: Bilateral Eye Normal Inspection, Bilateral Eye EOMI HEENT: normal ENT inspection, pharynx normal Neck: normal inspection Respiratory: chest non-tender, lungs clear, normal breath sounds Cardiovascular: regular rate, rhythm, no edema, no murmur Gastrointestinal: normal bowel sounds, non tender, soft, no organomegaly Back: normal inspection Extremities: normal inspection Neurologic/Psychiatric: no motor/sensory deficits, alert, normal mood/affect, oriented x 3 Skin: normal color, warm/dry Lymphatic: no adenopathy Assessment/Plan Assessment/Plan Admission Diagnosis/Plan Patient is an 84 yo male with history of major GI bleed who presents with unresolved GI bleeding. Multiple studies, including endoscopies and tagged red cell scan, have been unsuccessful in identifying the specific source of bleeding. He had an elevated PTT of 44 on 05/03/19, raising the concern for coagulopathy. He had a platelet transfusion on 05/04/19 and cryo today. -Patient lacks a significant medical history for bleeding and also has no stigmata suggestive of coagulopathy. -If patient has a bleeding disorder, it would be acquired, usually through autoimmune disease. Patient does have a known history of psoriasis. -His normal platelets and INR make it unlikely that patient has DIC, but that cannot be completely ruled out since low grade and/or chronic DIC may not have all abnormal lab values. -Although patient did not receive what can be called a massive transfusion, he did receive 6 units of PRBCs prior to checking his PTT, which could lead to dilutional factor deficiency or excess of citrate, which is used to prevent blood from clotting in the blood pack. Citrate is a calcium chelator, so we will check ionized calcium level. -Complete workup for coagulopathy will be difficult since patient just received cryoprecipitate, which contains fibrinogen, factor VIII, factor XIII and von Willebrand factor. We will be unable to make a proper assessment of DIC, factor XIII deficiency or acquired vWD. We can still check factor VIII and IX in the AM, since factor VIII has a short half life and factor IX is not included at all in cryo. PTT and PT/INR studies may also be affected in AM studies. -If there are abnormalities in factor VIII or IX activity, the next step would be to check for inhibitors through a mixing study or direct antibody detection. -Dr. Bundy will be optimization analyst tomorrow to follow up on the few coagulation studies we can run tomorrow morning. Thank you for allowing me to participate in the care of Mr. Faria. Clinical Quality Measures DVT/VTE Risk/Contraindication: Risk Factor Score Per Nursin RFS Level Per Nursing on Admit: 2=Moderate Results Labs Labs Laboratory Tests 05/05/19 20:43: Glucometer 237H 05/06/19 05:33: White Blood Count 7.3, Red Blood Count 2.31L, Hemoglobin 6.9*L, Hematocrit 21L, Mean Corpuscular Volume 91, Mean Corpuscular Hemoglobin 30, Mean Corpuscular Hemoglobin Concent 33, Red Cell Distribution Width 14.9H, Platelet Count 213, Mean Platelet Volume 9.8 05/06/19 05:34: Glucometer 121H 05/06/19 11:56: Glucometer 98 BILLY REICH MD May 06, 2019 15:33
[2019-05-06] MEDS: FOLIC ACID 1 MG TAB PO SCH (15:41)
[2019-05-06] MEDS: LORazepam 1 MG (ATIVAN) TAB PO PRN (20:21)
[2019-05-06] MEDS: LORATADINE (CLARITIN) 10 MG TAB PO SCH (20:21)
[2019-05-06] MEDS: ALLOPURINOL 300 MG (ZYLOPRIM) TAB PO SCH (20:21)
[2019-05-06] MEDS: TAMSULOSIN 0.4 MG (FLOMAX) CAP PO SCH (20:22)
[2019-05-06] MEDS: MELATONIN 3 MG TABLET PO SCH (20:22)
[2019-05-06] MEDS: CYANOCOBALAMIN 1,000 MCG (VITAMIN B-12) TABLET PO SCH (20:22)
[2019-05-07] VITALS (9 sets, daily range): BP systolic 111–169; BP diastolic 58–77
[2019-05-07] MEDS: ACETAMINOPHEN 325 MG TABLET PO PRN ×2 (00:51→19:27)
[2019-05-07] MEDS: CATHETER FLUSH 10 ML SYR IV SCH ×3 (06:15→21:18)
[2019-05-07] MEDS: inSUlin ASPART (NovoLOG) 1 UNIT/0.01 ML (CHARGE PER UNIT) SC SCH ×4 (06:15→21:17)
[2019-05-07] MEDS: LEVOTHYROXINE 75 MCG (LEVOTHROID) TABLET PO SCH (06:16)
[2019-05-07] MEDS: LEVOTHYROXINE 100 MCG (LEVOTHROID) TAB PO SCH (06:16)
[2019-05-07] MEDS: glipiZIDE 5 MG (GLUCOTROL) TAB PO SCH ×2 (06:16→16:23)
[2019-05-07] MEDS: LINACLOTIDE 290 MCG (LINZESS) CAPSULE PO SCH (06:16)
--- NOTE | 2019-05-07 06:40 | Progress Note - Surgery ---
CORINA WEINBERG MED STUDENT 05/07/19 0640: Subjective Date Seen by a Provider: May 07, 2019 Time Seen by a Provider: 06:35 Subjective/Events-last exam Mr. Faria was seen today due to blood in his stool. He reports having several bloody BMs over the past several days, describes the blood as bright red. He describes having hard stools that are painful to pass. Denies having any abdominal pain, nausea/vomiting, and fever/chills. Objective Exam Vital Signs Date Time Temp Pulse Resp B/P (MAP) Pulse Ox O2 Delivery O2 Flow Rate FiO2 05/07/19 02:42 36.8 05/07/19 02:35 36.8 05/07/19 00:51 38.2 05/07/19 00:00 38.2 80 22 111/59 (76) 97 Room Air 05/06/19 20:20 Room Air 05/06/19 17:15 37.8 05/06/19 17:00 37.2 05/06/19 15:28 38.0 05/06/19 15:15 38.0 94 20 134/57 (82) 100 Room Air 05/06/19 15:00 38.0 94 20 130/57 100 05/06/19 13:27 37.9 100 20 122/45 100 05/06/19 12:54 37.2 98 20 144/67 05/06/19 08:00 98 Room Air 05/06/19 08:00 37.4 108 20 139/71 (93) 100 Room Air I & O 05/07/19 07:00 Intake Total 2040 ml Output Total 2 ml Balance 2038 ml Capillary Refill : Less Than 3 Seconds General Appearance: No Apparent Distress, Chronically ill, Obese HEENT: PERRL/EOMI Neck: Normal Inspection, Non Tender, Supple Respiratory: Chest Non Tender, No Accessory Muscle Use, No Respiratory Distress Cardiovascular: Regular Rate, Rhythm, Normal Peripheral Pulses Peripheral Pulses: 2+ Radial Pulses (R), 2+ Radial Pulses (L) Gastrointestinal: non tender, soft, no organomegaly, other (small superficial anterior anal fissure, blood visible) Extremity: Normal Inspection, Non Tender, No Calf Tenderness Neurologic/Psychiatric: Alert, Oriented x3, Normal Mood/Affect Skin: Normal Color, Warm/Dry Lymphatic: No Adenopathy Results Lab Laboratory Tests 05/06/19 11:56: Glucometer 98 05/06/19 16:01: Glucometer 201H 05/06/19 21:03: Glucometer 99 05/07/19 06:13: Glucometer 102 Assessment/Plan Assessment/Plan Assessment/Plan Bright red blood in stool Sigmoid diverticular bleed per colonoscopy Hx of colon polyp and right hemicolectomy Patient has GI bleed, is being evaluated for coagulopathy. Appeared to be superficial anterior anal fissure, but this is likely not the source of his bleeding, recommend keeping stool soft, continue miralax. Continue to follow, monitor H&H, transfuse RBC prn. Clinical Quality Measures DVT/VTE Risk/Contraindication: Risk Factor Score Per Nursin RFS Level Per Nursing on Admit: 2=Moderate WIN CASTRO DO 05/07/192122: Subjective Subjective/Events-last exam Some blood in stool this morning. Seems to be slowing down. Painful stools to pass. Blood is bright red. No abdominal pain. Denies n/v fever sweats chills shortness of breath or chest pain. 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 Supervisory-Addendum Brief Verification & Attestation Participated in pt care: history, MDM, physical Personally performed: exam, history, MDM, supervision of care Care discussed with: Medical Student Procedures: n/a Results interpretation: Verified all documentation Verification and Attestation of Medical Student E/M Service A medical student performed and documented this service in my presence. I reviewed and verified all information documented by the medical student and made modifications to such information, when appropriate. I personally performed the physical exam and medical decision making. Win Castro, May 07, 2019,21:24 CORINA WEINBERG MED STUDENT May 07, 2019 06:40 WIN CASTRO DO May 07, 2019 21:23
[2019-05-07 06:51] LABS: MEAN PLATELET VOLUME 10.2 FL (7.4-10.4); RED CELL DISTRIBUTION WIDTH 16.3 % (10.0-14.5); WHITE BLOOD COUNT 8.8 10^3/uL (4.3-11.0)
[2019-05-07 06:52] LABS: HEMOGLOBIN 6.8 G/DL (13.3-17.7)
[2019-05-07 07:07] LABS: ALBUMIN 2.7 GM/DL (3.2-4.5); BILIRUBIN,DIRECT 0.2 MG/DL (0.0-0.3); BILIRUBIN,INDIRECT 0.1 MG/DL; BILIRUBIN,TOTAL 0.3 MG/DL (0.1-1.0); TOTAL PROTEIN 4.9 GM/DL (6.4-8.2)
[2019-05-07 07:28] LABS: INR 1.1 (0.8-1.4); PROTHROMBIN TIME PATIENT 14.4 SEC (12.2-14.7)
[2019-05-07] MEDS: amLODIPine 10 MG (NORVASC) TAB PO SCH (08:06)
[2019-05-07] MEDS: DOCUSATE SODIUM 100 MG (COLACE) CAP PO SCH ×2 (08:06→21:07)
[2019-05-07] MEDS: PANTOPRAZOLE 40 MG (PROTONIX) VIAL IV SCH (08:06)
[2019-05-07] MEDS: POLYETHYLENE GLYCOL 17 GM (MIRALAX) PACK PO SCH ×2 (08:06→21:06)
[2019-05-07] MEDS: FOLIC ACID 1 MG TAB PO SCH (08:06)
[2019-05-07] MEDS ORDERED: NS IV 500 ML 500 ML ONE (11:36)
--- NOTE | 2019-05-07 11:41 | Progress Note - Hospitalist ---
Subjective HPI/CC On Admission Date Seen by Provider: May 07, 2019 Time Seen by Provider: 09:15 Quinn Faria is a 84-year-old male with past medical history of hypertension, type II diabetes mellitus, hypothyroidism, gout, BPH, who presented with bright red blood per rectum. He states that he has had bleeding for a couple weeks. He says that it has not been every time he has gone to the bathroom. He said that it improved but has gotten worse to the past day or 2. He says that since this morning he has gone about 4 times and it is been bright red blood every time. He reports that he did have some black tarry stools this morning as well. He denies any fevers or chills. He denies any chest pain or shortness of breath. He denies any nausea, vomiting, hematemesis, abdominal pain. Subjective/Events-last exam He reports ongoing hematochezia. He says it is less than it had been though. He denies any other complaints. Objective Exam Vital Signs Vital Signs Date Time Temp Pulse Resp B/P (MAP) Pulse Ox O2 Delivery O2 Flow Rate FiO2 05/07/19 08:03 Room Air 0.00 05/07/19 08:00 37.0 106 20 145/58 (87) 99 Capillary Refill : Less Than 3 Seconds General Appearance: No Apparent Distress, WD/WN HEENT: PERRL/EOMI, Pharynx Normal Neck: Normal Inspection, Supple Respiratory: Lungs Clear, Normal Breath Sounds, No Respiratory Distress Cardiovascular: Regular Rate, Rhythm, No Edema, No Murmur Gastrointestinal: Normal Bowel Sounds, Non Tender, Soft Extremity: Normal Inspection, Non Tender, No Pedal Edema Neurologic/Psychiatric: Alert, Oriented x3, No Motor/Sensory Deficits, Normal Mood/Affect Skin: Normal Color, Warm/Dry Results/Procedures Lab Laboratory Tests 05/07/19 06:22 Patient resulted labs reviewed. Assessment/Plan Assessment and Plan Assess & Plan/Chief Complaint Diverticular bleed Hematochezia Acute blood loss anemia Acute lower GI bleeding admitted to Dr. Bishop Colonoscopy with diverticulosis, no active bleeding identified, bright red blood in the sigmoid colon without significant bleeding proximally RBC scan negative Hemoglobin 6.8 this morning, transfuse 1 unit of PRBC Transfuse to keep hemoglobin greater than 7 Hematology following and evaluating for coagulopathy Hypertension Well controlled Continue amlodipine Type II diabetes mellitus Sliding scale insulin CKD3 Appears to be a baseline Continue to monitor and avoid nephrotoxins as able Hypothyroidism Continue levothyroxine BPH Continue Flomax Gout Continue allopurinol DVT prophylaxis: Held due to active major bleeding Diagnosis/Problems Diagnosis/Problems (1) Diverticular hemorrhage Status: Acute (2) Acute lower GI bleeding Status: Acute (3) Acute blood loss anemia Status: Acute (4) Hematochezia Status: Acute (5) HTN (hypertension) Status: Chronic Qualifiers: Hypertension type: essential hypertension Qualified Codes: I10 - Essential (primary) hypertension (6) T2DM (type 2 diabetes mellitus) Status: Chronic (7) BPH (benign prostatic hyperplasia) Status: Chronic (8) Gout Status: Chronic (9) Hypothyroidism Status: Chronic (10) CKD (chronic kidney disease) Status: Chronic Qualifiers: Chronic kidney disease stage: stage 3 (moderate) Qualified Codes: N18.3 - Chronic kidney disease, stage 3 (moderate) Clinical Quality Measures DVT/VTE Risk/Contraindication: Risk Factor Score Per Nursin RFS Level Per Nursing on Admit: 2=Moderate MAIA THOMSON MD May 07, 2019 11:41
--- NOTE | 2019-05-07 15:38 | Progress Note ---
Progress Note Assessment/Plan Date Seen by Provider: May 07, 2019 Time Seen by Provider: 15:33 Events since last exam No more bleeding today. Hb 6.9 yesterday and 6.8 today. He had 1 unit of cryoprecipitates yesterday afternoon. aPTT this morning 52 and 44 yesterday. Normal PT/INR. Factor VIII and IX pending. RBS scan for GI bleeding was negative. Pt stated that he is doing well and would like to go home for [facility]. Assessment/Plan Admission Diagnosis/Plan Patient is an 84 yo male with history of major GI bleed who presents with unresolved GI bleeding. Multiple studies, including endoscopies and tagged red cell scan, have been unsuccessful in identifying the specific source of bleeding. He had an elevated PTT of 44 on 05/03/19, raising the concern for coagulopathy. He had a platelet transfusion on 05/04/19 and cryo 05/06/19. His aPPT is still abnormal at 52 from 44. Normal PT/INR. Factor VIII and IX pending. He had aPTT 36 (normal range 25-35) in 2013. Pt stated that his blood clot very fast if he has any cut. I believe this is diverticolosis/diverticulitis related lower GI bleeding for over 4 weeks and then a major GI bleeding recently when RBC/Hb became very low and viscosity of the blood very low and thin. I would transfuse support to get his Hb above 8. This will also help to thicken the blood/viscosity and decrease the bleeding. I would not do any more coagulopathy work up since he had major bleeding, over 6 units of transfusion and cryo. Unfortunately, the iron study was not done before the blood transfusion to help us identify the degree and iron deficiency. However, I would NOT start any iron treatment due to the irritation to the GI track. He had one unit of RBC today. I will check Hb after the transfusion. If Hb is still below 8, I would transfuse another unit of RBC to get the Hb above 8. Once his Hb is above 8, he can be discharged home from Hematology point of view. F/u with either me or Dr Islas next week at [facility]. It would not hurt to give him a trial of Carafate for 2 weeks even though it is more for the upper GI bleeding and he is lower GI bleeding. Make sure he is on stool softener to prevent constipation. Vitals Last set of Vitals Signs Vital Signs Date Time Temp Pulse Resp B/P (MAP) Pulse Ox O2 Delivery O2 Flow Rate FiO2 05/07/19 14:25 37.0 86 20 138/63 98 Room Air 05/07/19 08:03 0.00 I&O I&O Intake and Output 05/07/19 00:00 Intake Total 2190 ml Output Total 2 ml Balance 2188 ml Intake Oral 1790 ml IV Total 400 ml Stool Total 2 ml # Voids 8 Labs Laboratory Tests 05/06/19 16:01: Glucometer 201H 05/06/19 21:03: Glucometer 99 05/07/19 06:13: Glucometer 102 05/07/19 06:22: White Blood Count 8.8, Red Blood Count 2.34L, Hemoglobin 6.8*L, Hematocrit 22L, Mean Corpuscular Volume 94, Mean Corpuscular Hemoglobin 29, Mean Corpuscular Hemoglobin Concent 31L, Red Cell Distribution Width 16.3H, Platelet Count 257, Mean Platelet Volume 10.2, Prothrombin Time 14.4, INR Comment 1.1, Activated Partial Thromboplast Time 52H, Total Bilirubin 0.3, Direct Bilirubin 0.2, Indirect Bilirubin 0.1, Aspartate Amino Transf (AST/SGOT) 20, Alanine Amino transferase (ALT/SGPT) 15, Alkaline Phosphatase 45, Total Protein 4.9L, Albumin 2.7L 05/07/19 11:26: Glucometer 229H Clinical Quality Measures DVT/VTE Risk/Contraindication: Risk Factor Score Per Nursin RFS Level Per Nursing on Admit: 2=Moderate MANOJ GOMES MD May 07, 2019 15:38
[2019-05-07 16:30] LABS: HEMOGLOBIN 7.6 G/DL (13.3-17.7)
[2019-05-07] MEDS ORDERED: NS IV 500 ML 500 ML IV SCH ×2 (16:45)
[2019-05-07] MEDS: SUCRALFATE 1 GM (CARAFATE) TAB PO SCH (21:06)
[2019-05-07] MEDS: LORATADINE (CLARITIN) 10 MG TAB PO SCH (21:06)
[2019-05-07] MEDS: CYANOCOBALAMIN 1,000 MCG (VITAMIN B-12) TABLET PO SCH (21:07)
[2019-05-07] MEDS: ALLOPURINOL 300 MG (ZYLOPRIM) TAB PO SCH (21:07)
[2019-05-07] MEDS: TAMSULOSIN 0.4 MG (FLOMAX) CAP PO SCH (21:07)
[2019-05-07] MEDS: LORazepam 1 MG (ATIVAN) TAB PO PRN (21:10)
[2019-05-07] MEDS: MELATONIN 3 MG TABLET PO SCH (21:17)
[2019-05-08 00:07] VITALS: BP 122/66
[2019-05-08] MEDS: CATHETER FLUSH 10 ML SYR IV SCH (06:02)
[2019-05-08] MEDS: SUCRALFATE 1 GM (CARAFATE) TAB PO SCH (06:02)
[2019-05-08] MEDS: glipiZIDE 5 MG (GLUCOTROL) TAB PO SCH (06:02)
[2019-05-08] MEDS: LINACLOTIDE 290 MCG (LINZESS) CAPSULE PO SCH (06:02)
[2019-05-08] MEDS: LEVOTHYROXINE 100 MCG (LEVOTHROID) TAB PO SCH (06:02)
[2019-05-08] MEDS: LEVOTHYROXINE 75 MCG (LEVOTHROID) TABLET PO SCH (06:03)
[2019-05-08] MEDS: inSUlin ASPART (NovoLOG) 1 UNIT/0.01 ML (CHARGE PER UNIT) SC SCH (06:03)
[2019-05-08 06:15] LABS: HEMOGLOBIN 8.9 G/DL (13.3-17.7); MEAN PLATELET VOLUME 9.9 FL (7.4-10.4); RED CELL DISTRIBUTION WIDTH 17.2 % (10.0-14.5); WHITE BLOOD COUNT 7.6 10^3/uL (4.3-11.0)
--- NOTE | 2019-05-08 07:25 | Progress Note - Surgery ---
Subjective Date Seen by a Provider: May 08, 2019 Time Seen by a Provider: 07:21 Subjective/Events-last exam Mr. Faria reports feeling well today. He continues to have blood in his stools, but reports that the amount of blood is decreasing. He denies any abdominal pain or back pain, which he associated with difficulty having bowel movements, since he has started miralax. Denies any fatigue, light-headedness, nausea, or vomiting. Objective Exam Vital Signs Date Time Temp Pulse Resp B/P (MAP) Pulse Ox O2 Delivery O2 Flow Rate FiO2 05/08/19 00:07 36.7 83 20 122/66 (84) 99 Room Air 05/07/19 20:00 Room Air 05/07/19 19:22 37.7 86 20 169/77 95 Room Air 05/07/19 17:24 36.4 84 20 132/62 98 Room Air 05/07/19 17:03 36.6 83 20 130/58 97 05/07/19 16:02 37.6 90 18 136/68 (90) 95 Room Air 05/07/19 14:25 37.0 86 20 138/63 98 Room Air 05/07/19 12:15 36.9 86 20 130/60 98 Room Air 05/07/19 11:59 36.4 95 139/63 97 Room Air 05/07/19 08:03 Room Air 0.00 05/07/19 08:00 37.0 106 20 145/58 (87) 99 Room Air 05/07/19 08:00 Room Air I & O 05/08/19 07:00 Intake Total 1950 ml Output Total 1 ml Balance 1949 ml Capillary Refill : Less Than 3 Seconds General Appearance: No Apparent Distress, Chronically ill, Obese HEENT: PERRL/EOMI; No Pale Conjunctivae (L), No Pale Conjunctivae (R), No Scleral Icterus (L), No Scleral Icterus (R) Neck: Non Tender, Supple Respiratory: Chest Non Tender, Lungs Clear, Normal Breath Sounds, No Accessory Muscle Use, No Respiratory Distress Cardiovascular: Regular Rate, Rhythm, No Edema, No Murmur, Normal Peripheral Pulses Peripheral Pulses: 2+ Dorsalis Pedis (R), 2+ Left Dors-Pedis (L), 2+ Radial Pulses (R), 2+ Radial Pulses (L) Gastrointestinal: non tender, soft, no organomegaly, other (small superficial anterior anal fissure, blood visible) Extremity: Non Tender, No Calf Tenderness, No Pedal Edema Neurologic/Psychiatric: Alert, Oriented x3, Normal Mood/Affect, 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 Norm as Tested Skin: Normal Color, Warm/Dry Lymphatic: No Adenopathy Results Lab Laboratory Tests 05/07/19 11:26: Glucometer 229H 05/07/19 16:02: Glucometer 194H 05/07/19 16:26: Hemoglobin 7.6L, Hematocrit 24L 05/07/19 20:55: Glucometer 190H 05/08/19 05:11: Glucometer 141H 05/08/19 06:05: White Blood Count 7.6, Red Blood Count 3.01L, Hemoglobin 8.9L, Hematocrit 27L, Mean Corpuscular Volume 91, Mean Corpuscular Hemoglobin 30, Mean Corpuscular Hemoglobin Concent 33, Red Cell Distribution Width 17.2H, Platelet Count 261, Mean Platelet Volume 9.9 Assessment/Plan Assessment/Plan Assessment/Plan lower gi bleed, likely from diverticulosis history of right colectomy for colon polyp anemia secondary to gi bleed small anterior anal fissure H&H improved compared to yesterday, and patient reports bleeding is improving. Continue to monitor hgb and transfuse prn. Continue stool softener. No surgical interention at this time, will follow. Clinical Quality Measures DVT/VTE Risk/Contraindication: Risk Factor Score Per Nursin RFS Level Per Nursing on Admit: 2=Moderate CORINA WEINBERG MED STUDENT May 08, 2019 07:25
[2019-05-08] MEDS ORDERED: PANTOPRAZOLE 40 MG (PROTONIX) TAB PO SCH (09:00)
--- NOTE | 2019-05-08 09:17 | Progress Note ---
Subjective Date Seen by a Provider: May 08, 2019 Time Seen by a Provider: 09:00 Subjective/Events-last exam Patient reports doing well. Has been having BMs with little maroon colored stools. Patient reports no blood in water like there has been. Tolerating diet and ambulating. No complaints otherwise. Patient reports he would like to go home. Objective Exam Vital Signs Date Time Temp Pulse Resp B/P (MAP) Pulse Ox O2 Delivery O2 Flow Rate FiO2 05/08/19 00:07 36.7 83 20 122/66 (84) 99 Room Air 05/07/19 20:00 Room Air 05/07/19 19:22 37.7 86 20 169/77 95 Room Air 05/07/19 17:24 36.4 84 20 132/62 98 Room Air 05/07/19 17:03 36.6 83 20 130/58 97 05/07/19 16:02 37.6 90 18 136/68 (90) 95 Room Air 05/07/19 14:25 37.0 86 20 138/63 98 Room Air 05/07/19 12:15 36.9 86 20 130/60 98 Room Air 05/07/19 11:59 36.4 95 139/63 97 Room Air I & O 05/08/19 07:00 Intake Total 1950 ml Output Total 1 ml Balance 1949 ml Capillary Refill : Less Than 3 Seconds General Appearance: No Apparent Distress, WD/WN Neck: Full Range of Motion, Normal Inspection, Non Tender Respiratory: Normal Breath Sounds, No Accessory Muscle Use, No Respiratory Distress Cardiovascular: Regular Rate, Rhythm, No Murmur Gastrointestinal: normal bowel sounds, non tender, soft Extremity: Normal Capillary Refill, Normal Inspection, Normal Range of Motion Neurologic/Psychiatric: Alert, Oriented x3 Skin: Normal Color, Warm/Dry Results Lab Laboratory Tests 05/07/19 11:26: Glucometer 229H 05/07/19 16:02: Glucometer 194H 05/07/19 16:26: Hemoglobin 7.6L, Hematocrit 24L 05/07/19 20:55: Glucometer 190H 05/08/19 05:11: Glucometer 141H 05/08/19 06:05: White Blood Count 7.6, Red Blood Count 3.01L, Hemoglobin 8.9L, Hematocrit 27L, Mean Corpuscular Volume 91, Mean Corpuscular Hemoglobin 30, Mean Corpuscular He moglobin Concent 33, Red Cell Distribution Width 17.2H, Platelet Count 261, Mean Platelet Volume 9.9 Assessment/Plan Assessment/Plan Assess & Plan/Chief Complaint An 84 year old male with lower GI bleed secondary to bleeding sigmoid diverticulosis. Hgb 8.9 this AM. Has received Iron infusion, platelets, and cryo during this admission. Continue diet. monitor clinically and H/H. Diverticular bleed. due to age and potential risks, will continue with conservative management. patient already s/p right hemicolectomy and the next indicated surgery would encompass a subtotal colectomy. normal rbc scan. will continue conservative for now. regular diet and stool softeners. PT/INR WNL PTT was elevated and consulted hematology for further workup for hypocoagulation. Was seen by hematology and will send patient home with carafate, stool softners, and miralax. Patient will need to follow up with hematology either the end of this week or sometime next week. Follow up with our office PRN. Ok for patient to be DC'd home. Clinical Quality Measures DVT/VTE Risk/Contraindication: Risk Factor Score Per Nursin RFS Level Per Nursing on Admit: 2=Moderate SRINIVAS FERNANDEZ [employer] May 08, 2019 09:17
[2019-05-08] MEDS ORDERED: POLY17PO6 PO (09:20)
[2019-05-08] MEDS ORDERED: DOCU-238 PO ×2 (09:20→09:25)
[2019-05-08] MEDS ORDERED: SUCR1TAB36 PO (09:20)
--- NOTE | 2019-05-08 09:23 | Discharge Inst-Surgical ---
D/C Lap Instructions-KIDO Reconcile Patient Problems Problems Reviewed?: Yes New, Converted, or Re-Newed RX: RX on Chart Follow Up Appt with Dr. Islas the end of this week or next week. Activity as tolerated No driving while on pain medications High Fiber Diet 25g or more per day Avoid Alcohol, Caffeine, Spicy [place] and Acid foods. Drink 64 fluid oz or more of fluids per day. Use Miralax and stool softners as directed. Symptoms to Report: Fever over 101 degree F, Nausea/Vomiting If any problems/questions: Contact your physician or go to Emergency Room SRINIVAS FERNANDEZ APRN May 08, 2019 09:23
[2019-05-08] MEDS: FOLIC ACID 1 MG TAB PO SCH (10:11)
[2019-05-08] MEDS: amLODIPine 10 MG (NORVASC) TAB PO SCH (10:12)
[2019-05-08] MEDS: DOCUSATE SODIUM 100 MG (COLACE) CAP PO SCH (10:12)
[2019-05-08] MEDS: POLYETHYLENE GLYCOL 17 GM (MIRALAX) PACK PO SCH (10:12)
[2019-05-08] MEDS ORDERED: HEParin DRIP 25000 UNIT/500ML 500 ML IV SCH (11:39)
[2019-05-08] MEDS ORDERED: HEParin 1000 UNIT/ML (10ML VIAL) FOR BOLUS IV SCH (11:45)
== END 2019-05-08 10:35 | disposition home or self-care (01) | DRG 378 ==
LOC: 4TH 17:20
PROVIDERS: ADMIT Surgery; ATTEND Surgery
PROC: 0DJD8ZZ Inspection of Lower Intestinal Tract, Via Natural or Artificial Opening Endoscopic (ICD-10-PCS; principal; 2019-04-26 14:15)
DX: K57.31 Diverticulosis of large intestine without perforation or abscess with bleeding (principal); D62 Acute posthemorrhagic anemia; K64.1 Second degree hemorrhoids; I12.9 Hypertensive chronic kidney disease with stage 1 through stage 4 chronic kidney disease, or unspecified chronic kidney disease; N18.3 Chronic kidney disease, stage 3 (moderate); E11.22 Type 2 diabetes mellitus with diabetic chronic kidney disease; E03.9 Hypothyroidism, unspecified; N40.0 Benign prostatic hyperplasia without lower urinary tract symptoms; M10.9 Gout, unspecified; K59.09 Other constipation; L40.9 Psoriasis, unspecified; M19.91 Primary osteoarthritis, unspecified site; Z79.84 Long term (current) use of oral hypoglycemic drugs; Z90.49 Acquired absence of other specified parts of digestive tract; Z86.010 Personal history of colon polyps; Z96.653 Presence of artificial knee joint, bilateral; H26.9 Unspecified cataract; K60.2 Anal fissure, unspecified; K64.4 Residual hemorrhoidal skin tags; Z87.891 Personal history of nicotine dependence
CPT/HCPCS: 36415; 71045; 76937; 78278; 80048; 80076; 81000; 82330; 82728; 82962; 83540; 85014; 85018; 85025; 85027; 85240; 85250; 85303; 85610; 85730; 86850; 86900; 86901; 86920; 86927

== ENCOUNTER → 2019-05-24 | Outpatient (CLI) | payer MEDICARE, OTHER ==
[~2019-05-24] MED LIST changes: +AMLO10TA7 PO; +BARIUM SUSPENSION 2.1% (VANILLA SILQ) 450 ML PO ONE; +CYAN250010 PO; +DOCU-238 PO; +DULA0.75 SQ; +GLIP10TA13 PO; +HOLD METFORMIN - RECEIVED CONTRAST 20 ML VIAL IV SCH; +IOHEXOL 350 MG/ML 100 ML (OMNIPAQUE 350) VIAL IV ONE; +LEVO175T5 PO; +LINA290C PO; +MELO15TA39 PO; +METH2.5T PO; +NS 100 ML (IVPB) BAG IV ONE; +POLY17PO6 PO; +SUCR1TAB36 PO; +TAMS0.4C98 PO
--- NOTE | 2019-05-24 08:57 | Diagnostic Imaging Report ---
PROCEDURE: CT chest, abdomen, and pelvis with contrast. TECHNIQUE: Multiple contiguous axial images were obtained through the chest, abdomen, and pelvis after the administration of intravenous contrast. Auto Exposure Controls were utilized during the CT exam to meet ALARA standards for radiation dose reduction. All CT scans use one or more of the following dose optimizing techniques: automated exposure control, MA and/or KvP adjustment based on patient size and exam type or iterative reconstruction. INDICATION: Von Willebrand's disease. COMPARISON: Correlation is made with prior CT from 07/28/2009. FINDINGS: CT chest: No axillary lymphadenopathy is identified. No mediastinal or hilar lymphadenopathy is seen. There are some calcified lymph nodes in the right hilum consistent with prior granulomatous exposure. There are coronary arterial calcifications. No pericardial or pleural fluid is detected. Parenchymal evaluation does show some calcified granulomas in the right lower lobe. No noncalcified nodule or mass is seen. No infiltrate is detected. Generalized thoracic spondylosis is noted. No acute bony abnormality is detected. IMPRESSION: Essentially unremarkable CT of the chest. CT abdomen and pelvis: No discrete liver mass is detected. The gallbladder is unremarkable. No biliary ductal dilatation is identified. The pancreas and spleen are unremarkable apart from multiple calcified splenic granulomas. No adrenal mass is detected. Kidneys are unremarkable. No definite calculi or hydronephrosis is seen. Aorta is non-aneurysmal. No central, retroperitoneal, or mesenteric lymphadenopathy is detected. Small and large bowel loops are normal caliber. There is no obstruction. There is diverticulosis of the sigmoid and descending colon but no evidence of acute diverticulitis. There is no free fluid or fluid collection. The bladder is unremarkable. Prostate is normal in size. There is a fat-containing right inguinal hernia. No pelvic lymphadenopathy is detected. Generalized lumbar spondylosis is noted. IMPRESSION: 1. Uncomplicated diverticulosis. 2. Fat-containing right inguinal hernia. Dictated by: Dictated on workstation # [id number]
== END ==
LOC: RAD 06:58
PROVIDERS: ATTEND Internal Medicine Hematology & Oncology
DX: D68.0 Von Willebrand disease (principal); K57.30 Diverticulosis of large intestine without perforation or abscess without bleeding; K40.90 Unilateral inguinal hernia, without obstruction or gangrene, not specified as recurrent
CPT/HCPCS: 71260; 74177

== ENCOUNTER → 2019-05-30 | Outpatient (CLI) | payer MEDICARE, OTHER ==
[~2019-05-30] MED LIST changes: -BARIUM SUSPENSION 2.1% (VANILLA SILQ) 450 ML PO ONE; -HOLD METFORMIN - RECEIVED CONTRAST 20 ML VIAL IV SCH; -IOHEXOL 350 MG/ML 100 ML (OMNIPAQUE 350) VIAL IV ONE; -NS 100 ML (IVPB) BAG IV ONE; -TAMS0.4C98 PO; +TMSL.4C PO
== END ==
LOC: CARD 09:32
PROVIDERS: ATTEND Internal Medicine Hematology & Oncology
DX: I08.0 Rheumatic disorders of both mitral and aortic valves (principal); D68.0 Von Willebrand disease
CPT/HCPCS: 93306

== ENCOUNTER 2019-06-18 08:16 | Day surgery (SDC) | payer MEDICARE, OTHER ==
[2019-06-18] VITALS (13 sets, daily range): BP systolic 134–190; BP diastolic 63–95
[~2019-06-18] VITALS: Ht 159 cm; Wt 88.6 kg
[2019-06-18] MEDS ORDERED: NS IV 1000 ML 1,000 ML IV STA (08:36)
[2019-06-18] MEDS ORDERED: MIDAZOLAM 2 MG/2 ML (VERSED) VIAL IVP ONE (08:45)
[2019-06-18] MEDS ORDERED: LIDOCAINE 1% INJ 20 ML 20 ML VIAL INJ ONE (08:45)
[2019-06-18] MEDS ORDERED: fentaNYL INJECTION 100 MCG/2 ML AMP IVP ONE (08:45)
[2019-06-18 09:23] LABS: ABSOLUTE RETIC # 37 10e9/L (24-90); BASOPHILS % (AUTO) 0 % (0-10); EOSINOPHILS # (AUTO) 0.2 10^3/uL (0.0-0.3); EOSINOPHILS % (AUTO) 3 % (0-10); HEMATOCRIT 39 % (40-54); HEMOGLOBIN 12.9 G/DL (13.3-17.7); LYMPHOCYTES # (AUTO) 1.5 X 10^3 (1.0-4.0); LYMPHOCYTES % (AUTO) 22 % (12-44); MEAN CORPUSCULAR HEMOGLOBIN 29 PG (25-34); MEAN CORPUSCULAR HGB CONC 33 G/DL (32-36); MEAN CORPUSCULAR VOLUME 89 FL (80-99); MEAN PLATELET VOLUME 10.5 FL (7.4-10.4); MONOCYTES # (AUTO) 0.7 X 10^3 (0.0-1.0); MONOCYTES % (AUTO) 10 % (0-12); NEUTROPHILS # (AUTO) 4.5 X 10^3 (1.8-7.8); NEUTROPHILS % (AUTO) 65 % (42-75); PLATELET COUNT 206 10^3/uL (130-400); RED CELL DISTRIBUTION WIDTH 15.1 % (10.0-14.5); RETICULOCYTE % 0.83 % (0.50-2.40); WHITE BLOOD COUNT 6.8 10^3/uL (4.3-11.0)
[2019-06-18 09:29] LABS: INR 0.9 (0.8-1.4); PROTHROMBIN TIME PATIENT 12.3 SEC (12.2-14.7)
[2019-06-18 09:50] LABS: BAND NEUTROPHILS 0 %; BASOPHILS % (MANUAL) 0 %; EOSINOPHILS % (MANUAL) 1 %; LYMPHOCYTES % (MANUAL) 22 %; MONOCYTES % (MANUAL) 4 %; NEUTROPHILS % (MANUAL) 73 %; RBC MORPH NORMAL
--- NOTE | 2019-06-18 11:26 | Diagnostic Imaging Report ---
INDICATION: Adrenal mass. FINDINGS: Patient was brought to the CT suite, placed on table in the prone position. Axial imaging through the pelvis was performed to evaluate appropriate entry site. Low right back was prepped and draped in the usual sterile fashion. A small amount of 1% lidocaine was utilized for local anesthesia. Bone marrow biopsy needle was advanced and placed with its tip at the posterior cortex of the right iliac bone. Needle was advanced through the cortex utilizing the bone marrow drill. Two bone marrow aspirates were obtained. The drill was then used to obtain a core biopsy of the bone marrow. Needle was withdrawn and hemostasis was obtained using manual compression. Patient tolerated the procedure well and left the department in stable condition. The procedure was performed utilizing conscious sedation with radiology nursing and constant patient monitoring. Patient was administered 50 mcg of fentanyl intravenously and 1 mg of Versed intravenously. Total procedure time is 6 minutes. IMPRESSION: Successful CT-guided bone marrow aspiration and biopsy, utilizing conscious sedation. Dictated by: Dictated on workstation # [id number]
[2019-06-18] MEDS ORDERED: HYDROcodone/APAP 5 MG/325 MG (LORTAB) TAB PO PRN (11:30)
--- NOTE | 2019-06-18 15:37 | Pre-Op Note & Conscious Sedat ---
Pre-Operative Progress Note H&P Reviewed The H&P was reviewed, patient examined and no changes noted. Date H&P Reviewed: Jun 18, 2019 Time H&P Reviewed: 09:00 Pre-Op Diagnosis: abnormal labs Conscious Sedation Pre-Proced Time 09:00 ASA Score 2 For ASA 3 and 4: Consider anesthesia and medical clearance. Also, for patients with a history of failed moderate sedation consider anesthesia. Airway Lungs Heart ASA score ASA 1: a normal healthy patient ASA 2: a patient with a mild systemic disease (mid diabetes, controlled hypertension, obesity ASA 3: a patient with a severe systemic disease that limits activity (angina, COPD, prior Myocardial infarction) ASA 4: a patient with an incapacitating disease that is a constant threat to life (CHF, renal failure) ASA 5: a moribund patient not expected to survive 24 hrs. (ruptured aneurysm) ASA 6: a declared brain- patient whose organs are being harvested. For emergent operations, add the letter E after the classification Mallampati Classification Grade 2 Sedation Plan Analgesia, Amnesia, Plan communicated to team members, Discussed options with patient/fam, Discussed risks with patient/fam The patient is an appropriate candidate to undergo the planned procedure, sedation, and anesthesia. The patient immediately re-assessed prior to indication. LINDA CARBAJAL MD Jun 18, 2019 15:37
== END 2019-06-18 13:57 | disposition home or self-care (01) ==
LOC: RAD 08:16 → SDC 11:21 → RAD 13:57
PROVIDERS: ATTEND Internal Medicine Hematology & Oncology
DX: E27.9 Disorder of adrenal gland, unspecified (principal)
CPT/HCPCS: 36415; 38222; 77012; 82962; 85007; 85027; 85045; 85610; 85730; 99156

== ENCOUNTER 2019-06-28 09:36 | Outpatient (RCR) | payer MEDICARE, OTHER ==
[2019-05-10 12:05] LABS: BASOPHILS % (AUTO) 0 % (0-10); EOSINOPHILS # (AUTO) 0.1 10^3/uL (0.0-0.3); EOSINOPHILS % (AUTO) 1 % (0-10); HEMATOCRIT 30 % (40-54); HEMOGLOBIN 9.6 G/DL (13.3-17.7); LYMPHOCYTES % (AUTO) 16 % (12-44); MEAN CORPUSCULAR HEMOGLOBIN 29 PG (25-34); MEAN CORPUSCULAR HGB CONC 32 G/DL (32-36); MEAN CORPUSCULAR VOLUME 92 FL (80-99); MEAN PLATELET VOLUME 9.9 FL (7.4-10.4); MONOCYTES # (AUTO) 0.5 X 10^3 (0.0-1.0); MONOCYTES % (AUTO) 8 % (0-12); NEUTROPHILS # (AUTO) 4.8 X 10^3 (1.8-7.8); NEUTROPHILS % (AUTO) 75 % (42-75); PLATELET COUNT 319 10^3/uL (130-400); RED CELL DISTRIBUTION WIDTH 17.3 % (10.0-14.5); WHITE BLOOD COUNT 6.4 10^3/uL (4.3-11.0)
[2019-05-14 11:49] LABS: PROTHROMBIN TIME PATIENT 13.3 SEC (12.2-14.7)
[2019-05-18 11:20] LABS: BASOPHILS % (AUTO) 0 % (0-10); EOSINOPHILS # (AUTO) 0.2 10^3/uL (0.0-0.3); EOSINOPHILS % (AUTO) 1 % (0-10); HEMATOCRIT 37 % (40-54); HEMOGLOBIN 11.7 G/DL (13.3-17.7); LYMPHOCYTES # (AUTO) 1.5 X 10^3 (1.0-4.0); LYMPHOCYTES % (AUTO) 13 % (12-44); MEAN CORPUSCULAR HEMOGLOBIN 29 PG (25-34); MEAN CORPUSCULAR HGB CONC 32 G/DL (32-36); MEAN CORPUSCULAR VOLUME 92 FL (80-99); MEAN PLATELET VOLUME 8.9 FL (7.4-10.4); MONOCYTES # (AUTO) 1.4 X 10^3 (0.0-1.0); MONOCYTES % (AUTO) 12 % (0-12); NEUTROPHILS # (AUTO) 8.1 X 10^3 (1.8-7.8); NEUTROPHILS % (AUTO) 73 % (42-75); PLATELET COUNT 611 10^3/uL (130-400); RED CELL DISTRIBUTION WIDTH 15.9 % (10.0-14.5); WHITE BLOOD COUNT 11.2 10^3/uL (4.3-11.0)
[2019-05-18 12:42] LABS: ABSOLUTE RETIC # 87 10e9/L (24-90); BASOPHILS % (AUTO) 0 % (0-10); EOSINOPHILS # (AUTO) 0.2 10^3/uL (0.0-0.3); EOSINOPHILS % (AUTO) 2 % (0-10); HEMATOCRIT 38 % (40-54); HEMOGLOBIN 12.1 G/DL (13.3-17.7); LYMPHOCYTES # (AUTO) 1.6 X 10^3 (1.0-4.0); LYMPHOCYTES % (AUTO) 15 % (12-44); MEAN CORPUSCULAR HEMOGLOBIN 29 PG (25-34); MEAN CORPUSCULAR HGB CONC 32 G/DL (32-36); MEAN CORPUSCULAR VOLUME 91 FL (80-99); MONOCYTES # (AUTO) 1.1 X 10^3 (0.0-1.0); MONOCYTES % (AUTO) 10 % (0-12); NEUTROPHILS # (AUTO) 7.7 X 10^3 (1.8-7.8); NEUTROPHILS % (AUTO) 73 % (42-75); PLATELET COUNT 655 10^3/uL (130-400); RED CELL DISTRIBUTION WIDTH 16.2 % (10.0-14.5); RETICULOCYTE % 2.08 % (0.50-2.40); WHITE BLOOD COUNT 10.6 10^3/uL (4.3-11.0)
[2019-05-18 13:04] LABS: ALBUMIN 3.9 GM/DL (3.2-4.5); BILIRUBIN,TOTAL 0.2 MG/DL (0.1-1.0); CALCIUM 9.8 MG/DL (8.5-10.1); CREATININE SERUM 1.41 MG/DL (0.60-1.30); POTASSIUM 4.2 MMOL/L (3.6-5.0); TOTAL PROTEIN 7.6 GM/DL (6.4-8.2)
[2019-05-18 13:22] LABS: ERYTHROCYTE SEDIMENTATION RATE 86 MM/HR (0-30)
[2019-05-18 13:30] LABS: NEUTROPHILS % (MANUAL) 78 %
[2019-05-18 13:31] LABS: ANISOCYTOSIS SLIGHT; BAND NEUTROPHILS 1 %; BASOPHILS % (MANUAL) 0 %; EOSINOPHILS % (MANUAL) 1 %; LYMPHOCYTES % (MANUAL) 14 %; MONOCYTES % (MANUAL) 6 %
[2019-05-22 15:26] LABS: IMMUNOFIX PATH REPORT NUMBER Complete (Complete)
== END 2019-08-08 | disposition home or self-care (01) ==
LOC: ONC 09:36
PROVIDERS: ATTEND Internal Medicine Hematology & Oncology
DX: D62 Acute posthemorrhagic anemia (principal); D68.0 Von Willebrand disease
CPT/HCPCS: 80053; 81270; 83883; 84153; 84155; 84165; 84443; 85007; 85025; 85027; 85045; 85240; 85246; 85250; 85335; 85610; 85652; 85730; 86038; 86141; 86334; 86431; 99213

== ENCOUNTER → 2019-07-03 | Outpatient (CLI) | payer MEDICARE, OTHER ==
--- NOTE | 2019-07-05 13:50 | Diagnostic Imaging Report ---
PET/CT. INDICATION: Abnormal bone marrow, Von Willebrand disease. EXAMINATION: After intravenous administration of 13.63 mCi of F18-FDG injected into the right antecubital fossa, a series of overlapping emission and transmission PET images was obtained. In the coronal, transaxial and sagittal planes, the area imaged extended from the skull base through the upper thighs. The patient's height is 5' 7", weight 195 pounds and blood glucose of 101. All CT scans use one or more of the following dose optimizing techniques: automated exposure control, MA and/or KvP adjustment based on patient size and exam type or iterative reconstruction. COMPARISON: There are no previous PET/CT examinations available for comparison. FINDINGS: The CT chest, abdomen and pelvis exam of 05/24/2019 failed to show any sign of an acute abnormality or of neoplastic disease. On this exam there is no hypermetabolic activity to suggest neoplastic disease. Physiologic activity is seen in the brain, the kidneys, the bowel and the bladder. The CT images failed to show any sign of an acute abnormality. The images through the lower extremities were also unremarkable. There is no mass or hematoma identified in the region of the bone marrow biopsy of the right ischium performed on 06/18/2019. IMPRESSION: There is no hypermetabolic activity to suggest the presence of malignancy. Dictated on workstation # [id number]
== END ==
LOC: RAD 09:48
PROVIDERS: ATTEND Internal Medicine Hematology & Oncology
DX: D68.0 Von Willebrand disease (principal); R89.8 Other abnormal findings in specimens from other organs, systems and tissues

== ENCOUNTER 2020-01-11 09:49 | Outpatient (RCR) | payer MEDICARE, OTHER ==
[2020-01-01 14:18] LABS: BASOPHILS % (AUTO) 0 % (0-10); EOSINOPHILS # (AUTO) 0.2 10^3/uL (0.0-0.3); EOSINOPHILS % (AUTO) 2 % (0-10); HEMATOCRIT 38 % (40-54); HEMOGLOBIN 12.9 G/DL (13.3-17.7); LYMPHOCYTES # (AUTO) 1.2 X 10^3 (1.0-4.0); LYMPHOCYTES % (AUTO) 15 % (12-44); MEAN CORPUSCULAR HEMOGLOBIN 31 PG (25-34); MEAN CORPUSCULAR HGB CONC 34 G/DL (32-36); MEAN CORPUSCULAR VOLUME 91 FL (80-99); MEAN PLATELET VOLUME 10.5 FL (7.4-10.4); MONOCYTES # (AUTO) 0.6 X 10^3 (0.0-1.0); MONOCYTES % (AUTO) 7 % (0-12); NEUTROPHILS # (AUTO) 5.9 X 10^3 (1.8-7.8); NEUTROPHILS % (AUTO) 75 % (42-75); PLATELET COUNT 222 10^3/uL (130-400); WHITE BLOOD COUNT 7.9 10^3/uL (4.3-11.0)
[2020-01-01 14:38] LABS: ALBUMIN 3.7 GM/DL (3.2-4.5); BILIRUBIN,TOTAL 0.2 MG/DL (0.1-1.0); CREATININE SERUM 1.87 MG/DL (0.60-1.30); POTASSIUM 3.9 MMOL/L (3.6-5.0); TOTAL PROTEIN 6.5 GM/DL (6.4-8.2)
[~2020-01-11 09:49] MED LIST changes: +AMLO-251 PO; -AMLO10TA7 PO
[2020-02-27] MEDS ORDERED: PRD10T PO (15:03)
[2020-02-27] MEDS ORDERED: LEVO150T PO (15:03)
[2020-02-27] MEDS ORDERED: DOCU100C37 PO (15:03)
[2020-02-27] MEDS ORDERED: DOXY100C2 PO (15:03)
[2020-02-27] MEDS ORDERED: BENZ-36 PO (15:03)
[2020-02-27] MEDS ORDERED: FERR-84 PO (15:03)
== END 2020-03-15 | disposition home or self-care (01) ==
LOC: ONC 09:49
PROVIDERS: ATTEND Internal Medicine Hematology & Oncology
DX: D68.0 Von Willebrand disease (principal)
CPT/HCPCS: 80053; 82784; 83883; 84155; 84165; 85025; 99213

== ENCOUNTER 2020-02-26 13:32 | Inpatient (IN) | payer MEDICARE, OTHER ==
[~2020-02-26] VITALS: Ht 170.1 cm; Wt 93.1 kg
[~2020-02-26 13:32] MED LIST changes: -AMLO-251 PO; +AMLO10TA7 PO
[2020-02-26] MEDS ORDERED: NS IV 1000 ML 1,000 ML IV SCH (13:47)
--- NOTE | 2020-02-26 13:57 | ED Neurological Problem ---
General Stated Complaint: STROKE LIKE SYMPTOMS Source: patient Exam Limitations: no limitations History of Present Illness Date Seen by Provider: Feb 26, 2020 Time Seen by Provider: 13:26 Initial Comments Patient resents ER by private conveyance with his son Mike with chief complaint a week ago Tuesday yesterday he was kicked by a cow all working cattle. He felt the ground and his grandson thought that he struck his head but the patient denies it. He is not on blood thinners. He does take medicines for blood pressure and pills for diabetes. He does not use insulin. He went to Dr. Mijares's office who said that he had avulsed the tendons off of his shoulder and gave him a steroid shot. And then the next day he went to a doctor in [facility] and got a pain shot was shortened long-acting pain medicine. Since that time he's been doing well until yesterday morning when he woke up feeling very slow. His son says he typically is sharp is intact but now is very slow to answer and very confused. No complaints of fevers chills cough shortness of air dysuria, diarrhea. No CAT scan of the head obtained. No cough or sick contacts. The son says he is otherwise quite healthy and he follows regularly with Dr. Booth for primary care. Allergies and Home Medications Allergies Coded Allergies: No Known Drug Allergies (Verified Allergy, Unknown, 07/29/09) Home Medications Allopurinol 300 Mg Tablet, 300 MG PO HS, (Reported) Amlodipine Besylate 10 Mg Tablet, 10 MG PO DAILY, (Reported) Cyanocobalamin (Vitamin B-12) 2,500 Mcg Tablet, 2,500 MCG PO HS, (Reported) Docusate Sodium 100 Mg Capsule, 100 MG PO DAILY Prescribed by: SRINIVAS FERNANDEZ on 05/08/19 0925 Dulaglutide 0.75 Mg/0.5 Ml Pen.injctr, 0.75 MG SQ TUESDAY, (Reported) Glipizide 10 Mg Tablet, 10 MG PO BID, (Reported) Levocetirizine Dihydrochloride 5 Mg Tablet, 5 MG PO HS, (Reported) Levothyroxine Sodium 175 Mcg Tablet, 175 MCG PO DAILY, (Reported) Linaclotide 290 Mcg Capsule, 290 MCG PO DAILY, (Reported) Meloxicam 15 Mg Tablet, 7.5 MG PO DAILY, (Reported) TAKES 1/2 OF A 15MG TO RQUAL 7.5MG Tamsulosin HCl 0.4 Mg Cap, 0.4 MG PO HS, (Reported) [Test 20%/Chrysin-10%] , 0.5 GM TOP DAILY, (Reported) T20 C10 ELEVATOR PILOT Patient Home Medication List Home Medication List Reviewed: Yes Review of Systems Review of Systems Constitutional: No chills, No diaphoresis, No fever, No malaise Eyes: Denies Blindness, Denies Drainage Ears, Nose, Mouth, Throat: denies ear pain, denies ear discharge Respiratory: No cough, No phlegm, No short of breath Gastrointestinal: No abdominal pain; nausea; No vomiting Musculoskeletal: joint pain (right shoulder) All Other Systems Reviewed Negative Unless Noted: Yes Past Hgsyaoi-Bfhypw-Cvxhql Hx Patient Social History Alcohol Use: Denies Use Recreational Drug Use: No Smoking Status: Never a Smoker Recent Hopitalizations: Yes Immunizations Up To Date Tetanus Booster (TDap): Unknown Date of Pneumonia Vaccine: Feb 13, 2017 Date of Influenza Vaccine: Feb 13, 2019 Seasonal Allergies Seasonal Allergies: Yes Past Medical History Surgeries: Yes (BILAT KNEES REPLACEMENTS , COLON SURG ) Respiratory: No Currently Using CPAP: No Currently Using BIPAP: No Cardiac: Yes Neurological: No Reproductive Disorders: No Sexually Transmitted Disease: No HIV/AIDS: No Genitourinary: No Gastrointestinal: No (colon 1/3 removed surg) Chronic Constipation, Hemorrhoids Musculoskeletal: Yes (BILAT KNEE REPLACEMENT ) Arthritis Endocrine: Yes Hypothyroidsim, Diabetes, Non-Insulin dep Cataract Cancer: No Psychosocial: No Integumentary: No (psoriasis r leg) Psoriasis Blood Disorders: Yes Adverse Reaction/Blood Tranf: No Family Medical History Cancer 03 FATHER Family history: Diabetes mellitus 03 MOTHER 09 BROTHER Hereditary disease SON (ELEONORA LAKHANI) No Family History of: Abdominal aortic aneurysm Congestive heart failure Family history: Allergy Family history: Breast disease Family history: Cardiovascular disease Family history: Gastrointestinal disease Family history: Thyroid disorder History of - respiratory disease Myocardial infarction Seizure disorder Physical Exam Vital Signs Vital Signs - First Documented 02/26/20 02/26/20 13:34 16:37 Temp 36.2 Pulse 102 Resp 18 B/P (MAP) 168/105 (126) Pulse Ox 90 O2 Delivery Room Air O2 Flow Rate 60.00 Capillary Refill : Height, Weight, BMI Height: '" Weight: 222lbs. oz. 100.945115lq; 32.96 BMI Method: General Appearance: WD/WN, no apparent distress HEENT: PERRL/EOMI, pharynx normal Neck: full range of motion, normal inspection Respiratory: lungs clear, normal breath sounds, no respiratory distress, no accessory muscle use Cardiovascular: normal peripheral pulses, regular rate, rhythm Peripheral Pulses: 2+ Radial Pulses (R), 2+ Radial Pulses (L) Gastrointestinal: normal bowel sounds, non tender, soft Neurologic/Psychiatric: alert, oriented x 3, other (slowed mentation. Able to answer all orientation questions) Crainal Nerves: normal hearing, normal speech, PERRL Motor/Sensory: no motor deficit, no sensory deficit Skin: ecchymosis (right upper extremity) Focused Exam Sepsis Stage: Sepsis Possible Source: Pulmonary Lactate Level 02/26/20 16:15: Lactic Acid Level 1.13 Time of Focused Exam: 17:15 Respiratory: Lungs Clear, Normal Breath Sounds, Respiratory Distress Cardiovascular: Regular Rate, Rhythm, Normal Peripheral Pulses Capillary Refill: Less Than 3 Seconds Peripheral Pulses: 2+ Radial Pulses (R), 2+ Radial Pulses (L) Skin: normal color, warm/dry Lactic Acid Level Laboratory Tests Test 02/26/20 16:15 Lactic Acid Level 1.13 MMOL/L (0.50-2.00) Within 3hrs of presentation: Admin fluids (titrate the fluids down because of COVID-19 we will keep the patient dry), Admin ABX, Blood cultures prior to ABX's, Focus exam, Lactate level Progress/Results/Core Measures Results/Orders Lab Results Laboratory Tests Test 02/26/20 13:42 02/26/20 13:53 02/26/20 16:04 02/26/20 16:15 Range/Units Glucometer 247 H 70-110 MG/DL White Blood Count 8.0 4.3-11.0 10^3/uL Red Blood Count 4.84 4.30-5.52 10^6/uL Hemoglobin 15.1 13.3-17.7 g/dL Hematocrit 45 40-54 % Mean Corpuscular Volume 93 80-99 fL Mean Corpuscular Hemoglobin 31 25-34 pg Mean Corpuscular Hemoglobin Concent 34 32-36 g/dL Red Cell Distribution Width 12.8 10.0-14.5 % Platelet Count 157 130-400 10^3/uL Mean Platelet Volume 11.2 9.0-12.2 fL Immature Granulocyte % (Auto) 1 % Neutrophils (%) (Auto) 73 42-75 % Lymphocytes (%) (Auto) 16 12-44 % Monocytes (%) (Auto) 10 0-12 % Eosinophils (%) (Auto) 0 0-10 % Basophils (%) (Auto) 0 0-10 % Neutrophils # (Auto) 5.8 1.8-7.8 10^3/uL Lymphocytes # (Auto) 1.3 1.0-4.0 10^3/uL Monocytes # (Auto) 0.8 0.0-1.0 10^3/uL Eosinophils # (Auto) 0.0 0.0-0.3 10^3/uL Basophils # (Auto) 0.0 0.0-0.1 10^3/uL Immature Granulocyte # (Auto) 0.1 0.0-0.1 10^3/uL Prothrombin Time 12.9 12.2-14.7 SEC INR Comment 0.9 0.8-1.4 Activated Partial Thromboplast Time 47 H 24-35 SEC D-Dimer 2.27 H 0.00-0.49 UG/ML Sodium Level 135 135-145 MMOL/L Potassium Level 3.8 3.6-5.0 MMOL/L Chloride Level 102 98-107 MMOL/L Carbon Dioxide Level 18 L 21-32 MMOL/L Anion Gap 15 H 5-14 MMOL/L Blood Urea Nitrogen 32 H 7-18 MG/DL Creatinine 1.89 H 0.60-1.30 MG/DL Estimat Glomerular Filtration Rate 34 BUN/Creatinine Ratio 17 Glucose Level 280 H 70-105 MG/DL Calcium Level 8.8 8.5-10.1 MG/DL Corrected Calcium 9.0 8.5-10.1 MG/DL Total Bilirubin 0.6 0.1-1.0 MG/DL Aspartate Amino Transf (AST/SGOT) 49 H 5-34 U/L Alanine Aminotransferase (ALT/SGPT) 32 0-55 U/L Alkaline Phosphatase 77 40-136 U/L Total Creatine Kinase 275 H 30-200 U/L C-Reactive Protein High Sensitivity 20.28 H 0.00-0.50 MG/DL Total Protein 7.0 6.4-8.2 GM/DL Albumin 3.7 3.2-4.5 GM/DL Lactic Acid Level 1.13 0.50-2.00 MMOL/L Test 02/26/20 16:24 Range/Units Blood Gas Puncture Site LT RAD Blood Gas Patient Temperature 100.8 Arterial Blood pH 7.45 H 7.37-7.43 Arterial Blood Partial Pressure CO2 30 L 35-45 MMHG Arterial Blood Partial Pressure O2 164 H 79-93 MMHG Arterial Blood HCO3 20 L 23-27 MMOL/L Arterial Blood Total CO2 21.2 21.0-31.0 MMOL/L Arterial Blood Oxygen Saturation 99 94-100 % Arterial Blood Base Excess -2.8 L -2.5-2.5 MMOL/L Navin Test POS Blood Gas Ventilator Setting NO Blood Gas Inspired Oxygen 6L Micro Results Microbiology 02/26/20 Influenza Types A,B Antigen (JORDAN) - Final, Complete My Orders Orders - MAN TOM Ct Head/Cervical Spine Wo (02/26/20 13:47) Ed Iv/Invasive Line Start (02/26/20 13:47) Ns Iv 1000 Ml (Sodium Chloride 0.9%) (02/26/20 13:47) Cbc With Automated Diff (02/26/20 13:47) Comprehensive Metabolic Panel (02/26/20 13:47) Creatine Kinase (02/26/20 13:47) Accucheck Stat ONCE (02/26/20 14:04) Chest 1 View, Ap/Pa Only (02/26/20 14:04) Shoulder, Right, 3 Views (02/26/20 14:04) Fibrin Degradation Products (02/26/20 14:04) Hs C Reactive Protein (02/26/20 14:04) Drug Screen Stat (Urine) (02/26/20 14:04) Influenza A And B Antigens (02/26/20 15:39) Covid 19 Inhouse Test (02/26/20 15:39) Blood Culture (02/26/20 16:12) Lactic Acid Analyzer (02/26/20 16:12) Ceftriaxone For Iv Use (Rocephin For I (02/26/20 16:15) Azithromycin Injection (Zithromax Inject (02/26/20 16:15) Arterial Blood Gas (02/26/20 16:13) Acetaminophen Tablet (Tylenol Tablet) (02/26/20 16:30) Sputum Culture (02/26/20 16:20) Urinalysis (02/26/20 16:20) Urine Culture (02/26/20 16:20) Protime With Inr (02/26/20 16:20) Partial Thromboplastin Time (02/26/20 16:20) Ed Iv/Invasive Line Start (02/26/20 16:20) Ed Iv/Invasive Line Start (02/26/20 16:20) Vital Signs Adult Sepsis Patie Q15M (02/26/20 16:20) O2 (02/26/20 16:20) Remove Rings In Anticipation O (02/26/20 16:20) Procalcitonin (Pct) (02/26/20 16:32) Medications Given in ED Current Medications Medications Dose Ordered Sig/Ronda Route Start Time Stop Time Status Last Admin Dose Admin Acetaminophen 1,000 mg ONCE ONCE PO 02/26/20 16:30 02/26/20 16:31 DC 02/26/20 16:46 1,000 MG Azithromycin 500 mg/Sodium Chloride 250 ml @ 250 mls/hr ONCE ONCE IV 02/26/20 16:15 02/26/20 17:14 02/26/20 16:56 250 MLS/HR Ceftriaxone Sodium 1000 mg/ Sterile Water 10 ml @ 200 mls/hr ONCE ONCE IV 02/26/20 16:15 02/26/20 16:17 DC 02/26/20 16:46 200 MLS/HR Vital Signs/I&O 02/26/20 02/26/20 13:34 16:37 Temp 36.2 Pulse 102 110 Resp 18 35 B/P (MAP) 168/105 (126) Pulse Ox 90 96 O2 Delivery Room Air O2 Flow Rate 60.00 Progress Progress Note #1: Time: 14:01 Progress Note No neurologic deficits to suggest a stroke. The patient likely has examination of dehydration, concussion, plus or minus intracranial bleed and iatrogenic from the medications he is using to control his pain. Plan to get a CT of his head and C-spine, repeat right shoulder x-ray, chest x-ray, labs to rule out anemia, urinalysis to rule out infection. His blood sugar is moderately elevated so this could further dehydrate him. Tachycardia could be from dehydration, pain, infection. Progress Note #2: Time: 16:17 Progress Note The patient was requiring oxygen for an oxygen sat of 91% at 2 L. He is now 89% on 2 L so we bumped him up to 6 L and his oxygen sat is still 90%. He has not mouth breathing. Respiratory rate is 25-30 breaths per minute. He has now spiked a fever of 100.8 so we got a influenza and COVID 19 swab. He has groundglass bilateral opacities on chest x-ray as well as seen on the apices of the lungs bilaterally on the CT of the head and neck. We'll put him on an Oximask and getting an ABG. CPAP 5 cmH2O Initial ECG Impression Date: Feb 26, 2020 Initial ECG Impression Time: 13:33 Initial ECG Rate: 116 Initial ECG Rhythm: S.Tach Initial ECG Intervals: QT (474) Initial ECG Impression: Normal Comment Sinus tachycardia without clinically relevant ST elevation or depression. Minimal one half block of ST elevation in lead 3 but not into concurrent leads. Diagnostic Imaging Diagonstic Imaging: Xray Plain Films/CT/US/NM/MRI: chest Comments [facility] [place] NAME: NERY PAHM [facility] REC#: [id number] PT STATUS: REG ER : 1935 PHYSICIAN: MAN TOM MD ADMIT DATE: 02/26/20/ER Draft Date of Exam:02/26/20 CHEST 1 VIEW, AP/PA ONLY INDICATION: Recent trauma, kicked by a cow several days ago. Recent onset of confusion. TECHNIQUE: Single view chest at 2:59 PM. CORRELATION STUDY: 05/03/2019. FINDINGS: The heart size and mediastinum are mildly prominent. The vasculature has increased slightly since the prior exam. There is presence of scattered pulmonary parenchymal densities, particularly in the perihilar and basilar regions of both lungs, with relative sparing of the upper lobe distribution. IV catheter tubing at the left neck. IMPRESSION: 1. Mid and lower lung field groundglass opacities. These could be reflective of asymmetric areas of pneumonia including potential for Covid. 2. Stable heart size with the vascularity slightly increased from the prior exam. 3. The report was faxed to Infection Control by quinton@3:18 PM. Dictated on workstation # [id number] Dict: 02/26/20 1512 Trans: 02/26/201518 [id number] Interpreted by: JAYLAN LEON DO Electronically signed by: Reviewed: Reviewed by Id Diagonstic Imaging: Xray Plain Films/CT/US/NM/MRI: other (right shoulder) Comments [facility], [place] NAME: NERY PHAM [facility] REC#: [id number] PT STATUS: REG ER : 1935 PHYSICIAN: MAN TOM MD ADMIT DATE: 02/26/20/ER Draft Date of Exam:02/26/20 SHOULDER, RIGHT, 3 VIEWS INDICATION: Right shoulder injury. TIME OF EXAM: 3:00 PM. FINDINGS: Three views of the right shoulder were obtained. The glenohumeral and acromioclavicular alignment is normal. The acromiohumeral space is normal. No fracture or dislocation is seen. IMPRESSION: No acute bony abnormality is detected. Dictated on workstation # [id number] Dict: 02/26/201510 Trans: 02/26/201513 [id number] Interpreted by: LINDA CARBAJAL MD Electronically signed by: Reviewed: Reviewed by Id Diagonstic Imaging: CT Plain Films/CT/US/NM/MRI: c-spine, head Comments NAME: NERY PHAM [facility] REC#: [id number] PT STATUS: REG ER : 1935 PHYSICIAN: MAN TOM MD ADMIT DATE: 02/26/20/ER Draft Date of Exam:02/26/20 CT HEAD/CERVICAL SPINE WO Clinical Indication: Patient with confusion and known neck issues. Patient kicked by a cow a week ago. Exam: Axial Head CT without IV contrast with sagittal and coronal reformations. Axial CT scan of the cervical spine with sagittal and coronal reformations. Auto Exposure Controls were utilized during the CT exam to meet ALARA standards for radiation dose reduction. Comparison: X-ray of the cervical spine dated 07/28/2009. Findings: Head CT: There is no evidence of acute cerebral infarct, intracranial hemorrhage, or gross mass effect. The brain parenchymal volume appears appropriate for patient's age. There is normal merida-white matter distinction. There is no significant midline shift or herniation. There is no evidence of hydrocephalus. The basal cisterns are unremarkable. The skull, extracranial soft tissue, and orbits are unremarkable. The paranasal sinuses are unremarkable. Temporal bones show no significant abnormality. Cervical spine: Patient body habitus causes streak artifact obscuring portions of the mid to lower cervical spine. There is no gross acute cervical spine fracture visualized. There are hypertrophic spurs seen throughout the cervical spine and facet arthropathy/hypertrophy. There is grade 1 retrolisthesis of C6 on C7 which developed in the interim. There is severe left C3-C4 neural foramen narrowing due to facet arthropathy. There is mild to moderate neural foramen narrowing involving the cervical spine. There is no significant neck soft tissue abnormality. Partially visualized patchy airspace opacities in both lung apices. Impression: 1: There is no evidence of acute intracranial process. There is no skull fracture. 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 3: There are incompletely imaged small areas of lung consolidation in both lung apices. Infectious or inflammatory process versus scarring may be considered. Dictated on workstation # [id number] Dict: 02/26/20 1556 Trans: 02/26/20 1608 [facility] [id number] Interpreted by: MANJINDER VAUGHN MD Electronically signed by: Reviewed: Reviewed by Me Departure Communication (Admissions) Time/Spoke to Admitting Phy: 16:55 Discussed the case with Dr. Amaral and he agrees with admission to the ICU with dexamethasone, Lovenox, Tamiflu and consult to pulmonology. Time/Spoke to Consulting Phy: 17:00 Discussed the case with Dr. Arreola and he agrees to consult on the patient. He will put orders in for antivirals and convalescent plasma. Impression Primary Impression: COVID-19 Additional Impressions: Influenza B Acute respiratory failure with hypoxia Acute kidney injury Sepsis Qualified Codes: A41.9 - Sepsis, unspecified organism; R65.20 - Severe sepsis without septic shock; J96.01 - Acute respiratory failure with hypoxia Delirium Disposition: ADMITTED INPATIENT Condition: Stable Admissions Decision to Admit Reason: Admit from ER (General) Decision to Admit/Date: Feb 26, 2020 Time/Decision to Admit Time: 16:00 Departure-Patient Inst. Referrals: SHADI BOOTH MD (PCP/Family) Primary Care Physician MAN TOM Feb 26, 2020 13:57
[2020-02-26 14:03] LABS: BASOPHILS % (AUTO) 0 % (0-10); EOSINOPHILS % (AUTO) 0 % (0-10); HEMATOCRIT 45 % (40-54); HEMOGLOBIN 15.1 g/dL (13.3-17.7); LYMPHOCYTES # (AUTO) 1.3 10^3/uL (1.0-4.0); LYMPHOCYTES % (AUTO) 16 % (12-44); MEAN CORPUSCULAR HEMOGLOBIN 31 pg (25-34); MEAN CORPUSCULAR HGB CONC 34 g/dL (32-36); MEAN CORPUSCULAR VOLUME 93 fL (80-99); MEAN PLATELET VOLUME 11.2 fL (9.0-12.2); MONOCYTES # (AUTO) 0.8 10^3/uL (0.0-1.0); MONOCYTES % (AUTO) 10 % (0-12); NEUTROPHILS # (AUTO) 5.8 10^3/uL (1.8-7.8); NEUTROPHILS % (AUTO) 73 % (42-75); PLATELET COUNT 157 10^3/uL (130-400)
[2020-02-26 14:13] LABS: ALBUMIN 3.7 GM/DL (3.2-4.5); POTASSIUM 3.8 MMOL/L (3.6-5.0)
[2020-02-26 14:14] LABS: CALCIUM 8.8 MG/DL (8.5-10.1)
[2020-02-26 14:17] LABS: BILIRUBIN,TOTAL 0.6 MG/DL (0.1-1.0)
[2020-02-26 14:19] LABS: CREATININE SERUM 1.89 MG/DL (0.60-1.30)
--- NOTE | 2020-02-26 15:14 | Diagnostic Imaging Report ---
INDICATION: Right shoulder injury. TIME OF EXAM: 3:00 PM. FINDINGS: Three views of the right shoulder were obtained. The glenohumeral and acromioclavicular alignment is normal. The acromiohumeral space is normal. No fracture or dislocation is seen. IMPRESSION: No acute bony abnormality is detected. Dictated by: Dictated on workstation # [id number]
--- NOTE | 2020-02-26 15:19 | Diagnostic Imaging Report ---
INDICATION: Recent trauma, kicked by a cow several days ago. Recent onset of confusion. TECHNIQUE: Single view chest at 2:59 PM. CORRELATION STUDY: 05/03/2019. FINDINGS: The heart size and mediastinum are mildly prominent. The vasculature has increased slightly since the prior exam. There is presence of scattered pulmonary parenchymal densities, particularly in the perihilar and basilar regions of both lungs, with relative sparing of the upper lobe distribution. IV catheter tubing at the left neck. IMPRESSION: 1. Mid and lower lung field groundglass opacities. These could be reflective of asymmetric areas of pneumonia including potential for Covid. 2. Stable heart size with the vascularity slightly increased from the prior exam. 3. The report was faxed to Infection Control by quinton@3:18 PM. Dictated by: Dictated on workstation # [id number]
--- NOTE | 2020-02-26 16:09 | Diagnostic Imaging Report ---
Clinical Indication: Patient with confusion and known neck issues. Patient kicked by a cow a week ago. Exam: Axial Head CT without IV contrast with sagittal and coronal reformations. Axial CT scan of the cervical spine with sagittal and coronal reformations. Auto Exposure Controls were utilized during the CT exam to meet ALARA standards for radiation dose reduction. Comparison: X-ray of the cervical spine dated 07/28/2009. Findings: Head CT: There is no evidence of acute cerebral infarct, intracranial hemorrhage, or gross mass effect. The brain parenchymal volume appears appropriate for patient's age. There is normal merida-white matter distinction. There is no significant midline shift or herniation. There is no evidence of hydrocephalus. The basal cisterns are unremarkable. The skull, extracranial soft tissue, and orbits are unremarkable. The paranasal sinuses are unremarkable. Temporal bones show no significant abnormality. Cervical spine: Patient body habitus causes streak artifact obscuring portions of the mid to lower cervical spine. There is no gross acute cervical spine fracture visualized. There are hypertrophic spurs seen throughout the cervical spine and facet arthropathy/hypertrophy. There is grade 1 retrolisthesis of C6 on C7 which developed in the interim. There is severe left C3-C4 neural foramen narrowing due to facet arthropathy. There is mild to moderate neural foramen narrowing involving the cervical spine. There is no significant neck soft tissue abnormality. Partially visualized patchy airspace opacities in both lung apices. Impression: 1: There is no evidence of acute intracranial process. There is no skull fracture. 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 3: There are incompletely imaged small areas of lung consolidation in both lung apices. Infectious or inflammatory process versus scarring may be considered. Dictated by: Dictated on workstation # [id number]
[2020-02-26] MEDS ORDERED: AZITHROMYCIN INJECTION 500 MG in NS (IVPB) 250 ML IV ONE (16:15)
[2020-02-26] MEDS ORDERED: cefTRIAXone FOR IV USE 1,000 MG in WATER (STERILE) FOR INJECTION 10 ML IV ONE (16:15)
[2020-02-26] MEDS ORDERED: ACETAMINOPHEN 500 MG TAB (TYLENOL) PO ONE (16:30)
[2020-02-26 16:37] LABS: ABG BASE EXCESS -2.8 MMOL/L (-2.5-2.5); ABG OXYGEN SATURATION 99 % (94-100); ABG PCO2 30 MMHG (35-45); ABG PH 7.45 (7.37-7.43); ABG PO2 164 MMHG (79-93); ABG TCO2 21.2 MMOL/L (21.0-31.0)
[2020-02-26 16:45] LABS: INR 0.9 (0.8-1.4); PROTHROMBIN TIME PATIENT 12.9 SEC (12.2-14.7)
[2020-02-26 16:53] LABS: ALLENS TEST POS
[2020-02-26 16:54] LABS: INSPIRED O2 6L; PATIENT TEMP 100.8; VENTILATOR NO
[2020-02-26] MEDS ORDERED: OSELTAMIVIR 30 MG (TAMIFLU) CAPSULE PO ONE (17:15)
[2020-02-26] MEDS ORDERED: ENOXAPARIN 40 MG/0.4 ML (LOVENOX) SYR SC ONE (17:15)
--- NOTE | 2020-02-26 17:45 | NUR ---
Cr sheridan in ED - 02/26/20 at 1746 by TBERPARKER PT HAS BEEN UP TO [facility] [place] X3 SINCE 1600
--- NOTE | 2020-02-26 17:46 | NUR ---
PT HAS BEEN UP TO [facility] X3 SINCE 1600 FOR DIARRHEA
[2020-02-26] MEDS ORDERED: EPINEPHrine 1 MG INJECTION 4 MG in NS (IVPB) 248 ML IV SCH (18:00)
[2020-02-26] MEDS ORDERED: IBUPROFEN 600 MG (MOTRIN) TAB PO PRN (18:00)
[2020-02-26] MEDS: LACTATED RINGERS 1,000 ML IV SCH ×2 (18:12→23:50)
[2020-02-26] MEDS: NOREPINEPHRINE 4 MG/250 ML 250 ML IV SCH (18:15)
[2020-02-26] MEDS: VASOPRESSIN INJECTION 20 UNIT in NS (IVPB) 100 ML IV SCH (18:15)
[2020-02-26] MEDS ORDERED: REMDESIVIR INJ (NON-FORMULARY) 200 MG in NS (IVPB) 210 ML IV ONE (18:30)
--- NOTE | 2020-02-26 19:00 | NUR ---
THIS RN SPOKE WITH PT REGARDING REMDESIVIR AND CONVALESCENT PLASMA TREATMENTS. PT GAVE CONSENT. RITIKA LUJAN CONFIRMED CONSENT FROM PT .
[2020-02-26] MEDS ORDERED: ACETAMINOPHEN 325 MG SUPP (TYLENOL) PR PRN (22:30)
[2020-02-27] MEDS: LACTATED RINGERS 1,000 ML IV SCH ×2 (00:12→06:16)
[2020-02-27] MEDS: VASOPRESSIN INJECTION 20 UNIT in NS (IVPB) 100 ML IV SCH ×2 (00:58→10:07)
[2020-02-27] MEDS: NOREPINEPHRINE 4 MG/250 ML 250 ML IV SCH ×2 (00:58→08:37)
[2020-02-27 03:45] LABS: BASOPHILS % (AUTO) 0 % (0-10); EOSINOPHILS % (AUTO) 0 % (0-10); HEMATOCRIT 46 % (40-54); HEMOGLOBIN 15.3 g/dL (13.3-17.7); LYMPHOCYTES # (AUTO) 0.6 10^3/uL (1.0-4.0); LYMPHOCYTES % (AUTO) 12 % (12-44); MEAN CORPUSCULAR HEMOGLOBIN 31 pg (25-34); MEAN CORPUSCULAR HGB CONC 34 g/dL (32-36); MEAN CORPUSCULAR VOLUME 94 fL (80-99); MEAN PLATELET VOLUME 11.8 fL (9.0-12.2); MONOCYTES # (AUTO) 0.3 10^3/uL (0.0-1.0); MONOCYTES % (AUTO) 6 % (0-12); NEUTROPHILS # (AUTO) 4.4 10^3/uL (1.8-7.8); NEUTROPHILS % (AUTO) 81 % (42-75); PLATELET COUNT 146 10^3/uL (130-400); WHITE BLOOD COUNT 5.4 10^3/uL (4.3-11.0)
[2020-02-27 04:11] LABS: CALCIUM 8.5 MG/DL (8.5-10.1); CREATININE SERUM 2.08 MG/DL (0.60-1.30); PHOSPHORUS 5.6 MG/DL (2.3-4.7); POTASSIUM 4.1 MMOL/L (3.6-5.0)
[2020-02-27] MEDS ORDERED: inSUlin ASPART (NovoLOG) 1 UNIT/0.01 ML (CHARGE PER UNIT) ONE (04:43)
[2020-02-27] MEDS ORDERED: ENOXAPARIN 40 MG/0.4 ML (LOVENOX) SYR SC SCH (05:00)
[2020-02-27] MEDS ORDERED: inSUlin ASPART (NovoLOG) 1 UNIT/0.01 ML (CHARGE PER UNIT) SC SCH (06:00)
[2020-02-27] MEDS: OSELTAMIVIR 30 MG (TAMIFLU) CAPSULE PO SCH ×2 (06:15→16:37)
[2020-02-27] MEDS: inSUlin ASPART (NovoLOG) 1 UNIT/0.01 ML (CHARGE PER UNIT) SC SCH ×4 (06:16→20:22)
--- NOTE | 2020-02-27 06:38 | Pulmonary Consultation ---
History of Present Illness History of Present Illness Date Seen by Provider: Feb 27, 2020 Time Seen by Provider: 06:33 Date of Admission Allergies and Home Medications Allergies Coded Allergies: No Known Drug Allergies (Verified , 07/29/09) Home Medications Allopurinol 300 Mg Tablet, 300 MG PO HS, (Reported) Amlodipine Besylate 10 Mg Tablet, 10 MG PO DAILY, (Reported) Cyanocobalamin (Vitamin B-12) 2,500 Mcg Tablet, 2,500 MCG PO HS, (Reported) Docusate Sodium 100 Mg Capsule, 100 MG PO DAILY Prescribed by: SRINIVAS FERNANDEZ on 05/08/19 0925 Dulaglutide 0.75 Mg/0.5 Ml Pen.injctr, 0.75 MG SQ TUESDAY, (Reported) Glipizide 10 Mg Tablet, 10 MG PO BID, (Reported) Levocetirizine Dihydrochloride 5 Mg Tablet, 5 MG PO HS, (Reported) Levothyroxine Sodium 175 Mcg Tablet, 175 MCG PO DAILY, (Reported) Linaclotide 290 Mcg Capsule, 290 MCG PO DAILY, (Reported) Meloxicam 15 Mg Tablet, 7.5 MG PO DAILY, (Reported) TAKES 1/2 OF A 15MG TO RQUAL 7.5MG Tamsulosin HCl 0.4 Mg Cap, 0.4 MG PO HS, (Reported) [Test 20%/Chrysin-10%] , 0.5 GM TOP DAILY, (Reported) T20 C10 [employer] Past Snyixuz-Nkorzg-Zymfaf Hx Patient Social History Alcohol Use: Denies Use Recreational Drug Use: No Smoking Status: Never a Smoker Recent Foreign Travel: No Contact w/Someone Who Travel: No Recent Infectious Disease Expo: No Recent Hopitalizations: Yes Immunizations Up To Date Tetanus Booster (TDap): Unknown Date of Pneumonia Vaccine: Feb 13, 2017 Date of Influenza Vaccine: Feb 14, 2020 Seasonal Allergies Seasonal Allergies: Yes Past Medical History Surgeries: Yes (BILAT KNEES REPLACEMENTS , COLON SURG ) Respiratory: No Currently Using CPAP: No Currently Using BIPAP: No Cardiac: Yes Neurological: No Reproductive Disorders: No Sexually Transmitted Disease: No HIV/AIDS: No Genitourinary: No Gastrointestinal: No (colon 1/3 removed surg) Chronic Constipation, Hemorrhoids Musculoskeletal: Yes (BILAT KNEE REPLACEMENT ) Arthritis Endocrine: Yes Hypothyroidsim, Diabetes, Non-Insulin dep Cataract Cancer: No Psychosocial: No Integumentary: No (psoriasis r leg) Psoriasis Blood Disorders: Yes Adverse Reaction/Blood Tranf: No Family Medical History Cancer 03 FATHER Family history: Diabetes mellitus 03 MOTHER 09 BROTHER Hereditary disease SON (ELEONORA LAKHANI) No Family History of: Abdominal aortic aneurysm Congestive heart failure Family history: Allergy Family history: Breast disease Family history: Cardiovascular disease Family history: Gastrointestinal disease Family history: Thyroid disorder History of - respiratory disease Myocardial infarction Seizure disorder Review of Systems Time Seen by Provider: 06:38 Sepsis Event Evaluation Height, Weight, BMI Height: '" Weight: 222lbs. oz. 100.127642ho; 31.00 BMI Method: Exam Exam Vital Signs Date Time Temp Pulse Resp B/P (MAP) Pulse Ox O2 Delivery O2 Flow Rate FiO2 02/27/20 06:00 77 167/96 98 High Flow N/C 10.00 02/27/20 05:00 76 161/87 97 High Flow N/C 10.00 02/27/20 04:00 72 157/89 97 High Flow N/C 10.00 02/27/20 03:26 72 99 High Flow N/C 10.00 02/27/20 03:15 75 163/95 100 NIV CPAP 50.00 02/27/20 03:11 99 NIV CPAP 50 02/27/20 02:24 75 100 NIV CPAP 50.00 02/27/20 02:10 71 21 96 60.00 02/27/20 02:00 73 167/86 100 NIV CPAP 60.00 02/27/20 01:00 76 143/86 99 NIV CPAP 60.00 02/27/20 01:00 76 02/27/20 00:00 74 136/87 98 NIV CPAP 60.00 02/26/20 23:11 99 NIV CPAP 60 02/26/20 23:00 78 155/95 99 NIV CPAP 60.00 02/26/20 23:00 36.1 02/26/20 22:00 79 151/80 99 NIV CPAP 60.00 02/26/20 21:00 77 149/76 99 NIV CPAP 60.00 02/26/20 20:17 36.0 NIV CPAP 60.00 02/26/20 20:00 79 145/78 99 NIV CPAP 60.00 02/26/20 20:00 99 NIV CPAP 60 02/26/20 19:08 87 02/26/20 19:00 89 144/68 97 NIV CPAP 60.00 02/26/20 18:20 94 02/26/20 18:16 105 32 96 70.00 02/26/20 18:07 37.0 92 103/75 98 NIV CPAP 60.00 02/26/20 18:05 108 24 101/69 98 Room Air 02/26/20 18:00 NIV CPAP 60 02/26/20 16:37 110 35 96 60.00 02/26/20 16:00 93 Nasal Cannula 5.00 02/26/20 13:34 36.2 102 18 168/105 (126) 90 Room Air I & O 02/27/20 07:00 Intake Total 2210 ml Output Total 600 ml Balance 1610 ml Height & Weight Height: '" Weight: 222lbs. oz. 100.708879rh; 31.00 BMI Method: Respiratory: Lungs Clear, Normal Breath Sounds, Respiratory Distress Cardiovascular: Regular Rate, Rhythm, Normal Peripheral Pulses Capillary Refill: Less Than 3 Seconds Peripheral Pulses: 2+ Radial Pulses (R), 2+ Radial Pulses (L) Gastrointestinal: normal bowel sounds, non tender, soft Results Lab Laboratory Tests 02/26/20 13:53 02/27/20 03:08 Assessment/Plan Assessment/Plan Acute respiratory failure -BiPAP PRN -Oxygen COVID-19 -Remdesivir -CVP Pneumonia with sepsis Influenza B Acute kidney injury MARGA REYNAGA DO Feb 27, 2020 06:38
[2020-02-27] MEDS ORDERED: NS (IVPB) 250 ML ONE (08:57)
[2020-02-27] MEDS ORDERED: PANTOPRAZOLE 40 MG (PROTONIX) VIAL IV SCH (09:00)
[2020-02-27 09:10] VITALS: BP 175/102
[2020-02-27 09:25] VITALS: BP 189/105
[2020-02-27] MEDS: ADVAIR HFA 115/21 MCG INHALER 8 GM IH SCH ×2 (09:31→20:04)
[2020-02-27] MEDS: amLODIPine 5 MG (NORVASC) TAB PO SCH (11:20)
[2020-02-27] MEDS: RT-ALBUTEROL INHALER HFA (VENTOLIN HFA) 18 GM IH SCH ×3 (11:20→20:03)
--- NOTE | 2020-02-27 12:12 | NUR ---
REPORT RECEIVED FROM ALAN LUJAN
[2020-02-27] MEDS ORDERED: LEVO150T PO (15:03)
[2020-02-27] MEDS ORDERED: PRD10T PO (15:03)
[2020-02-27] MEDS ORDERED: BENZ-36 PO (15:03)
[2020-02-27] MEDS ORDERED: DOXY100C2 PO (15:03)
[2020-02-27] MEDS ORDERED: DOCU100C37 PO (15:03)
[2020-02-27] MEDS ORDERED: FERR-84 PO (15:03)
--- NOTE | 2020-02-27 15:42 | NUR ---
I WAS UNABLE TO SPEAK WITH THE PT, I DID REACH OUT TO HIS (SHARAN), WENT THRU THE EXT MED HISTORY AND CALLED DR. CACERES OFFICE TO COMPLETE THE MED REC PTS WAS ABLE TO TELL ME ALL HIS MEDICATIONS WELL WHEN/HOW HE TAKES EACH. ALL HER INFORMATION MATCHED THE EXT MED HISTORY OTC MEDS: IRON DOCUSATE
[2020-02-27] MEDS ORDERED: cefTRIAXone FOR IV USE 1,000 MG in WATER (STERILE) FOR INJECTION 10 ML IV SCH (16:00)
[2020-02-27] MEDS ORDERED: AZITHROMYCIN INJECTION 500 MG in NS (IVPB) 250 ML IV SCH (16:00)
--- NOTE | 2020-02-27 16:08 | NUR ---
DR THOMSON NOTIFIED OF INCREASED BP AND HR. ORDERS RECEIVED
[2020-02-27] MEDS ORDERED: LABETALOL HCL 20 MG/4 ML VIAL IV PRN (16:15)
[2020-02-27] MEDS: ENOXAPARIN 40 MG/0.4 ML (LOVENOX) SYR SC SCH (16:37)
[2020-02-27] MEDS: cefTRIAXone FOR IV USE 1,000 MG in WATER (STERILE) FOR INJECTION 10 ML IV SCH (17:37)
[2020-02-27] MEDS: REMDESIVIR INJ (NON-FORMULARY) 100 MG in NS (IVPB) 230 ML IV SCH (17:45)
[2020-02-27] MEDS: CARVEDILOL 6.25 MG (COREG) TAB PO SCH (20:22)
[2020-02-27] MEDS: ACETAMINOPHEN 325 MG TABLET PO PRN (20:22)
[2020-02-28] MEDS: ACETAMINOPHEN 325 MG TABLET PO PRN (05:27)
[2020-02-28] MEDS: OSELTAMIVIR 30 MG (TAMIFLU) CAPSULE PO SCH ×2 (05:27→17:57)
[2020-02-28] MEDS: inSUlin ASPART (NovoLOG) 1 UNIT/0.01 ML (CHARGE PER UNIT) SC SCH ×5 (05:29→20:01)
[2020-02-28 07:17] LABS: BASOPHILS % (AUTO) 0 % (0-10); EOSINOPHILS % (AUTO) 0 % (0-10); HEMATOCRIT 40 % (40-54); HEMOGLOBIN 13.5 g/dL (13.3-17.7); LYMPHOCYTES # (AUTO) 0.6 10^3/uL (1.0-4.0); LYMPHOCYTES % (AUTO) 6 % (12-44); MEAN CORPUSCULAR HEMOGLOBIN 31 pg (25-34); MEAN CORPUSCULAR HGB CONC 34 g/dL (32-36); MEAN CORPUSCULAR VOLUME 91 fL (80-99); MEAN PLATELET VOLUME 11.8 fL (9.0-12.2); MONOCYTES # (AUTO) 0.3 10^3/uL (0.0-1.0); MONOCYTES % (AUTO) 3 % (0-12); NEUTROPHILS # (AUTO) 8.2 10^3/uL (1.8-7.8); NEUTROPHILS % (AUTO) 90 % (42-75); PLATELET COUNT 150 10^3/uL (130-400); WHITE BLOOD COUNT 9.1 10^3/uL (4.3-11.0)
[2020-02-28 07:34] LABS: CALCIUM 8.3 MG/DL (8.5-10.1); CREATININE SERUM 1.76 MG/DL (0.60-1.30); POTASSIUM 3.6 MMOL/L (3.6-5.0)
[2020-02-28 07:46] LABS: BAND NEUTROPHILS 5 %; BASOPHILS % (MANUAL) 0 %; EOSINOPHILS % (MANUAL) 0 %; LYMPHOCYTES % (MANUAL) 8 %; MONOCYTES % (MANUAL) 2 %; NEUTROPHILS % (MANUAL) 85 %; RBC MORPH NORMAL
[2020-02-28] MEDS ORDERED: dexAMETHasone 6 MG TAB (DECADRON) PO NR (08:00)
[2020-02-28] MEDS ORDERED: ACETAMINOPHEN 650 MG SUPP (TYLENOL) PR PRN (08:45)
[2020-02-28] MEDS: amLODIPine 5 MG (NORVASC) TAB PO SCH (08:58)
[2020-02-28] MEDS: CARVEDILOL 6.25 MG (COREG) TAB PO SCH ×2 (08:58→19:56)
[2020-02-28] MEDS: PANTOPRAZOLE 40 MG (PROTONIX) TAB PO SCH (09:00)
[2020-02-28] MEDS: LEVOTHYROXINE 150 MCG (LEVOTHROID) TAB PO SCH (09:12)
--- NOTE | 2020-02-28 09:56 | Progress Note - Hospitalist ---
Subjective HPI/CC On Admission Date Seen by Provider: Feb 28, 2020 Time Seen by Provider: 09:00 Subjective/Events-last exam He is feeling better. He is not short of breath. He denies fever. He denies cough. He is eating and drinking. He has been moving around. He is requesting a couple home medications. He has no other complaints or concerns. Focused Exam Lactate Level 02/26/20 16:15: Lactic Acid Level 1.13 Time of Focused Exam: 17:15 Objective Exam Vital Signs Vital Signs Date Time Temp Pulse Resp B/P (MAP) Pulse Ox O2 Delivery O2 Flow Rate FiO2 02/28/20 08:00 36.3 68 170/80 90 High Flow N/C 15.00 02/27/20 09:25 27 02/27/20 03:11 50 Capillary Refill : Less Than 3 SecondsLess Than 3 Seconds General Appearance: No Apparent Distress, Obese Respiratory: Lungs Clear, Normal Breath Sounds, No Respiratory Distress Cardiovascular: Regular Rate, Rhythm, No Edema, No Murmur Gastrointestinal: Normal Bowel Sounds, Non Tender, Soft Extremity: Normal Inspection, Non Tender, No Pedal Edema Neurologic/Psychiatric: Alert, Oriented x3, No Motor/Sensory Deficits, Normal Mood/Affect Skin: Normal Color, Warm/Dry Results/Procedures Lab Laboratory Tests 02/28/20 06:50 Patient resulted labs reviewed. Assessment/Plan Assessment and Plan Assess & Plan/Chief Complaint Acute respiratory failure due to COVID-19 Influenza B PNA Decadron Remdesivir day 3/5 s/p 1 unit convalescent plasma Tamiflu Rocephin and Azithromycin Supplemental oxygen as needed, weaning as able ELVIA on CKD Baseline ~1.5 Cr 1.76 today, improved from 2 Continue oral hydration T2DM Steroid induced hyperglycemia SSI HTN BPH Hypothyroidism Continue home meds DVT/GI Prophylaxis: Lovenox/PPI Diagnosis/Problems Diagnosis/Problems (1) Acute respiratory failure due to COVID-19 Status: Acute (2) Acute kidney injury superimposed on chronic kidney disease Status: Acute (3) PNA (pneumonia) Status: Acute (4) Steroid-induced hyperglycemia Status: Acute (5) Influenza B Status: Acute (6) T2DM (type 2 diabetes mellitus) Status: Chronic (7) BPH (benign prostatic hyperplasia) Status: Chronic (8) Hypothyroidism Status: Chronic (9) HTN (hypertension) Status: Chronic (10) Gout Status: Chronic (11) Obesity Status: Chronic Clinical Quality Measures DVT/VTE Risk/Contraindication: Risk Factor Score Per Nursin RFS Level Per Nursing on Admit: 4+=Very High MAIA THOMSON MD Feb 28, 2020 09:56
[2020-02-28] MEDS: ADVAIR HFA 115/21 MCG INHALER 8 GM IH SCH ×2 (10:12→20:15)
[2020-02-28] MEDS: RT-ALBUTEROL INHALER HFA (VENTOLIN HFA) 18 GM IH SCH ×4 (10:12→20:15)
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
--- NOTE | 2020-02-28 13:08 | NUR ---
FAMILY NOTIFIED REGARDING ROOM CHANGE, PT IS NOW IN 431.
[2020-02-28] MEDS: AZITHROMYCIN 250 MG TAB (ZITHROMAX) PO SCH (17:57)
[2020-02-28] MEDS: ENOXAPARIN 40 MG/0.4 ML (LOVENOX) SYR SC SCH (17:57)
[2020-02-28] MEDS: cefTRIAXone FOR IV USE 1,000 MG in WATER (STERILE) FOR INJECTION 10 ML IV SCH (17:57)
[2020-02-28] MEDS: REMDESIVIR INJ (NON-FORMULARY) 100 MG in NS (IVPB) 230 ML IV SCH (18:10)
[2020-02-28 19:50] VITALS: BP 170/79
[2020-02-28] MEDS: LORATADINE (CLARITIN) 10 MG TAB PO SCH (19:56)
[2020-02-28] MEDS: ALLOPURINOL 300 MG (ZYLOPRIM) TAB PO SCH (19:56)
[2020-02-28] MEDS: TAMSULOSIN 0.4 MG (FLOMAX) CAP PO SCH (19:56)
--- NOTE | 2020-02-28 20:04 | NUR ---
Dr. Dominguez notified of pt's request for Melatonin for sleep. New order rec for Melatonin 6mg PO at HS.
[2020-02-28] MEDS ORDERED: MELATONIN 3 MG TABLET ONE (20:06)
[2020-02-28] MEDS: MELATONIN 3 MG TABLET PO SCH (20:09)
[2020-02-28] MEDS ORDERED: LEVOCETIRIZINE 5 MG TAB (XYZAL) NON-FORMULARY PO SCH (21:00)
[2020-02-28 23:25] VITALS: BP 163/75
[2020-02-29] VITALS (8 sets, daily range): BP systolic 140–174; BP diastolic 62–82
[2020-02-29] MEDS: RT-ALBUTEROL INHALER HFA (VENTOLIN HFA) 18 GM IH SCH ×3 (02:55→19:17)
[2020-02-29] MEDS: dexAMETHasone 6 MG TAB (DECADRON) PO SCH (06:05)
[2020-02-29] MEDS: OSELTAMIVIR 30 MG (TAMIFLU) CAPSULE PO SCH ×2 (06:05→16:48)
[2020-02-29] MEDS: LEVOTHYROXINE 150 MCG (LEVOTHROID) TAB PO SCH (06:05)
[2020-02-29] MEDS: inSUlin ASPART (NovoLOG) 1 UNIT/0.01 ML (CHARGE PER UNIT) SC SCH ×4 (06:07→20:11)
[2020-02-29 06:25] LABS: BASOPHILS % (AUTO) 0 % (0-10); EOSINOPHILS % (AUTO) 0 % (0-10); HEMATOCRIT 39 % (40-54); HEMOGLOBIN 13.2 g/dL (13.3-17.7); LYMPHOCYTES # (AUTO) 0.6 10^3/uL (1.0-4.0); LYMPHOCYTES % (AUTO) 6 % (12-44); MEAN CORPUSCULAR HEMOGLOBIN 31 pg (25-34); MEAN CORPUSCULAR HGB CONC 34 g/dL (32-36); MEAN CORPUSCULAR VOLUME 90 fL (80-99); MEAN PLATELET VOLUME 11.9 fL (9.0-12.2); MONOCYTES # (AUTO) 0.4 10^3/uL (0.0-1.0); MONOCYTES % (AUTO) 5 % (0-12); NEUTROPHILS # (AUTO) 7.5 10^3/uL (1.8-7.8); NEUTROPHILS % (AUTO) 88 % (42-75); PLATELET COUNT 157 10^3/uL (130-400); WHITE BLOOD COUNT 8.6 10^3/uL (4.3-11.0)
[2020-02-29 06:38] LABS: CALCIUM 8.3 MG/DL (8.5-10.1)
[2020-02-29 06:42] LABS: CREATININE SERUM 1.69 MG/DL (0.60-1.30)
[2020-02-29] MEDS: amLODIPine 5 MG (NORVASC) TAB PO SCH (08:16)
[2020-02-29] MEDS: CARVEDILOL 6.25 MG (COREG) TAB PO SCH ×2 (08:16→20:02)
[2020-02-29] MEDS: PANTOPRAZOLE 40 MG (PROTONIX) TAB PO SCH (08:16)
[2020-02-29] MEDS: SODIUM BICARBONATE 650 MG TABLET (NON-FORMULARY) PO SCH ×3 (08:37→16:58)
--- NOTE | 2020-02-29 09:38 | Progress Note - Hospitalist ---
Subjective HPI/CC On Admission Date Seen by Provider: Feb 29, 2020 Time Seen by Provider: 08:30 Subjective/Events-last exam He reports feeling tired. He denies trouble breathing. He denies pain. He has been eating and drinking. He has been up moving around. Focused Exam Lactate Level 02/26/20 16:15: Lactic Acid Level 1.13 Time of Focused Exam: 17:15 Objective Exam Vital Signs Vital Signs Date Time Temp Pulse Resp B/P (MAP) Pulse Ox O2 Delivery O2 Flow Rate FiO2 02/29/20 08:14 36.2 74 22 172/82 (112) 94 Vapotherm 40.00 60.00 02/29/20 02:55 60 Capillary Refill : Less Than 3 Seconds General Appearance: No Apparent Distress, Obese Respiratory: Lungs Clear, Normal Breath Sounds, No Respiratory Distress Cardiovascular: Regular Rate, Rhythm, No Edema, No Murmur Gastrointestinal: Normal Bowel Sounds, Non Tender, Soft Extremity: Normal Inspection, Non Tender, No Pedal Edema Neurologic/Psychiatric: Alert, Oriented x3, No Motor/Sensory Deficits, Normal Mood/Affect Skin: Normal Color, Warm/Dry Results/Procedures Lab Laboratory Tests 02/29/20 06:14 Patient resulted labs reviewed. Assessment/Plan Assessment and Plan Assess & Plan/Chief Complaint Acute respiratory failure due to COVID-19 Influenza B PNA Transitioned to Vapotherm yesterday, currently 40 L and 60% FiO2 Decadron Remdesivir day 4/5 s/p 1 unit convalescent plasma Ordering 2nd unit plasma Tamiflu Rocephin and Azithromycin ELVIA on CKD Baseline ~1.5 Cr 1.69 today, improving Continue oral hydration T2DM Steroid induced hyperglycemia Levemir SSI HTN BPH Hypothyroidism Continue home meds DVT/GI Prophylaxis: Lovenox/PPI Diagnosis/Problems Diagnosis/Problems (1) Acute respiratory failure due to COVID-19 Status: Acute (2) Acute kidney injury superimposed on chronic kidney disease Status: Acute (3) PNA (pneumonia) Status: Acute (4) Steroid-induced hyperglycemia Status: Acute (5) Influenza B Status: Acute (6) T2DM (type 2 diabetes mellitus) Status: Chronic (7) BPH (benign prostatic hyperplasia) Status: Chronic (8) Hypothyroidism Status: Chronic (9) HTN (hypertension) Status: Chronic (10) Gout Status: Chronic (11) Obesity Status: Chronic Clinical Quality Measures DVT/VTE Risk/Contraindication: Risk Factor Score Per Nursin RFS Level Per Nursing on Admit: 4+=Very High MAIA THOMSON MD Feb 29, 2020 09:38
[2020-02-29] MEDS ORDERED: NS IV 500 ML 500 ML ONE (10:18)
--- NOTE | 2020-02-29 11:10 | NUR ---
NS 500mL pulled from stock meds to run with blood products.
[2020-02-29] MEDS: ADVAIR HFA 115/21 MCG INHALER 8 GM IH SCH ×2 (15:18→19:17)
[2020-02-29] MEDS: AZITHROMYCIN 250 MG TAB (ZITHROMAX) PO SCH (16:48)
[2020-02-29] MEDS: cefTRIAXone FOR IV USE 1,000 MG in WATER (STERILE) FOR INJECTION 10 ML IV SCH (16:48)
[2020-02-29] MEDS: ENOXAPARIN 40 MG/0.4 ML (LOVENOX) SYR SC SCH (16:49)
[2020-02-29] MEDS: REMDESIVIR INJ (NON-FORMULARY) 100 MG in NS (IVPB) 230 ML IV SCH (16:59)
[2020-02-29] MEDS: MELATONIN 3 MG TABLET PO SCH (20:02)
[2020-02-29] MEDS: LORATADINE (CLARITIN) 10 MG TAB PO SCH (20:02)
[2020-02-29] MEDS: ALLOPURINOL 300 MG (ZYLOPRIM) TAB PO SCH (20:02)
[2020-02-29] MEDS: TAMSULOSIN 0.4 MG (FLOMAX) CAP PO SCH (20:02)
[2020-03-01] VITALS (7 sets, daily range): BP systolic 131–179; BP diastolic 62–86
[2020-03-01] MEDS: RT-ALBUTEROL INHALER HFA (VENTOLIN HFA) 18 GM IH SCH ×4 (00:58→22:25)
[2020-03-01] MEDS: LEVOTHYROXINE 150 MCG (LEVOTHROID) TAB PO SCH (06:11)
[2020-03-01] MEDS: OSELTAMIVIR 30 MG (TAMIFLU) CAPSULE PO SCH ×2 (06:11→17:22)
[2020-03-01] MEDS: inSUlin ASPART (NovoLOG) 1 UNIT/0.01 ML (CHARGE PER UNIT) SC SCH ×7 (06:13→21:01)
[2020-03-01 06:58] LABS: BASOPHILS % (AUTO) 0 % (0-10); EOSINOPHILS % (AUTO) 0 % (0-10); HEMATOCRIT 39 % (40-54); HEMOGLOBIN 13.5 g/dL (13.3-17.7); LYMPHOCYTES # (AUTO) 0.5 10^3/uL (1.0-4.0); LYMPHOCYTES % (AUTO) 5 % (12-44); MEAN CORPUSCULAR HEMOGLOBIN 31 pg (25-34); MEAN CORPUSCULAR HGB CONC 34 g/dL (32-36); MEAN CORPUSCULAR VOLUME 90 fL (80-99); MEAN PLATELET VOLUME 12.2 fL (9.0-12.2); MONOCYTES # (AUTO) 0.5 10^3/uL (0.0-1.0); MONOCYTES % (AUTO) 5 % (0-12); NEUTROPHILS # (AUTO) 9.2 10^3/uL (1.8-7.8); NEUTROPHILS % (AUTO) 90 % (42-75); PLATELET COUNT 158 10^3/uL (130-400); WHITE BLOOD COUNT 10.2 10^3/uL (4.3-11.0)
[2020-03-01 07:01] LABS: POTASSIUM 3.8 MMOL/L (3.6-5.0)
[2020-03-01 07:02] LABS: CALCIUM 8.7 MG/DL (8.5-10.1)
[2020-03-01 07:06] LABS: CREATININE SERUM 1.79 MG/DL (0.60-1.30)
[2020-03-01] MEDS: ADVAIR HFA 115/21 MCG INHALER 8 GM IH SCH ×2 (07:29→22:25)
[2020-03-01] MEDS: CARVEDILOL 6.25 MG (COREG) TAB PO SCH ×2 (09:59→20:49)
[2020-03-01] MEDS: PANTOPRAZOLE 40 MG (PROTONIX) TAB PO SCH (09:59)
[2020-03-01] MEDS: SODIUM BICARBONATE 650 MG TABLET (NON-FORMULARY) PO SCH ×3 (09:59→18:19)
[2020-03-01] MEDS: dexAMETHasone 6 MG TAB (DECADRON) PO SCH (09:59)
[2020-03-01] MEDS: amLODIPine 5 MG (NORVASC) TAB PO SCH (09:59)
--- NOTE | 2020-03-01 12:38 | Progress Note - Hospitalist ---
Subjective HPI/CC On Admission Date Seen by Provider: Mar 01, 2020 Time Seen by Provider: 10:00 Subjective/Events-last exam He is feeling weak. He denies shortness of breath. He denies fevers. He is not having a cough. He has been eating and drinking. He has not been up and moving much. Focused Exam Time of Focused Exam: 17:15 Objective Exam Vital Signs Vital Signs Date Time Temp Pulse Resp B/P (MAP) Pulse Ox O2 Delivery O2 Flow Rate FiO2 03/01/20 12:26 63 03/01/20 12:00 35.9 20 179/86 (117) 95 Vapotherm 40.00 70.00 03/01/20 07:29 70 Capillary Refill : Less Than 3 SecondsLess Than 3 Seconds General Appearance: Anxious, Mild Distress (tachypnea), Obese Respiratory: Lungs Clear, Normal Breath Sounds, Respiratory Distress (tach ypnea) Cardiovascular: Regular Rate, Rhythm, No Edema, No Murmur Gastrointestinal: Normal Bowel Sounds, Non Tender, Soft Extremity: Normal Inspection, Non Tender, No Pedal Edema Neurologic/Psychiatric: Alert, Oriented x3, No Motor/Sensory Deficits, Normal Mood/Affect Skin: Normal Color, Warm/Dry Results/Procedures Lab Laboratory Tests 03/01/20 06:00 Patient resulted labs reviewed. Imaging: Reviewed Imaging Report Assessment/Plan Assessment and Plan Assess & Plan/Chief Complaint Acute respiratory failure due to COVID-19 Influenza B PNA Continue Vapotherm, currently 40 L and 70% FiO2, slightly worsened Decadron Remdesivir day 5/5 s/p 2 unit convalescent plasma Tamiflu Rocephin and Azithromycin Repeat procalcitonin Check BNP ELVIA on CKD Baseline ~1.5 Cr 1.78 today, relatively stable T2DM Steroid induced hyperglycemia Levemir Add Novolog with meals SSI HTN BPH Hypothyroidism Continue home meds DVT/GI Prophylaxis: Lovenox/PPI Diagnosis/Problems Diagnosis/Problems (1) Acute respiratory failure due to COVID-19 Status: Acute (2) Acute kidney injury superimposed on chronic kidney disease Status: Acute (3) PNA (pneumonia) Status: Acute (4) Steroid-induced hyperglycemia Status: Acute (5) Influenza B Status: Acute (6) T2DM (type 2 diabetes mellitus) Status: Chronic (7) BPH (benign prostatic hyperplasia) Status: Chronic (8) Hypothyroidism Status: Chronic (9) HTN (hypertension) Status: Chronic (10) Gout Status: Chronic (11) Obesity Status: Chronic Clinical Quality Measures DVT/VTE Risk/Contraindication: Risk Factor Score Per Nursin RFS Level Per Nursing on Admit: 4+=Very High MAIA THOMSON MD Mar 01, 2020 12:37
[2020-03-01] MEDS: ENOXAPARIN 40 MG/0.4 ML (LOVENOX) SYR SC SCH (17:22)
[2020-03-01] MEDS: cefTRIAXone FOR IV USE 1,000 MG in WATER (STERILE) FOR INJECTION 10 ML IV SCH (17:22)
[2020-03-01] MEDS: REMDESIVIR INJ (NON-FORMULARY) 100 MG in NS (IVPB) 230 ML IV SCH (17:23)
[2020-03-01] MEDS: AZITHROMYCIN 250 MG TAB (ZITHROMAX) PO SCH (17:37)
[2020-03-01] MEDS: TAMSULOSIN 0.4 MG (FLOMAX) CAP PO SCH (20:49)
[2020-03-01] MEDS: LORATADINE (CLARITIN) 10 MG TAB PO SCH (20:49)
[2020-03-01] MEDS: MELATONIN 3 MG TABLET PO SCH (20:50)
[2020-03-01] MEDS: ALLOPURINOL 300 MG (ZYLOPRIM) TAB PO SCH (21:47)
[2020-03-02 00:44] VITALS: BP 157/73
[2020-03-02 03:19] VITALS: BP 171/80
[2020-03-02] MEDS: RT-ALBUTEROL INHALER HFA (VENTOLIN HFA) 18 GM IH SCH ×4 (03:25→21:39)
[2020-03-02 06:10] LABS: BASOPHILS % (AUTO) 0 % (0-10); EOSINOPHILS % (AUTO) 0 % (0-10); HEMATOCRIT 37 % (40-54); HEMOGLOBIN 12.8 g/dL (13.3-17.7); LYMPHOCYTES # (AUTO) 0.5 10^3/uL (1.0-4.0); LYMPHOCYTES % (AUTO) 4 % (12-44); MEAN CORPUSCULAR HEMOGLOBIN 31 pg (25-34); MEAN CORPUSCULAR HGB CONC 35 g/dL (32-36); MEAN CORPUSCULAR VOLUME 89 fL (80-99); MEAN PLATELET VOLUME 12.2 fL (9.0-12.2); MONOCYTES # (AUTO) 0.4 10^3/uL (0.0-1.0); MONOCYTES % (AUTO) 4 % (0-12); NEUTROPHILS # (AUTO) 10.4 10^3/uL (1.8-7.8); NEUTROPHILS % (AUTO) 91 % (42-75); PLATELET COUNT 158 10^3/uL (130-400); WHITE BLOOD COUNT 11.4 10^3/uL (4.3-11.0)
[2020-03-02] MEDS: inSUlin ASPART (NovoLOG) 1 UNIT/0.01 ML (CHARGE PER UNIT) SC SCH ×8 (06:17→21:09)
[2020-03-02] MEDS: OSELTAMIVIR 30 MG (TAMIFLU) CAPSULE PO SCH (06:21)
[2020-03-02] MEDS: LEVOTHYROXINE 150 MCG (LEVOTHROID) TAB PO SCH (06:22)
[2020-03-02 06:44] LABS: CALCIUM 8.2 MG/DL (8.5-10.1); CREATININE SERUM 1.54 MG/DL (0.60-1.30); POTASSIUM 3.6 MMOL/L (3.6-5.0)
[2020-03-02] MEDS: ADVAIR HFA 115/21 MCG INHALER 8 GM IH SCH ×2 (07:25→21:38)
[2020-03-02 08:00] VITALS: BP 148/64
[2020-03-02] MEDS: dexAMETHasone INJECTION 20 MG in NS (IVPB) 50 ML IV SCH (09:05)
[2020-03-02] MEDS: amLODIPine 5 MG (NORVASC) TAB PO SCH (09:05)
[2020-03-02] MEDS: PANTOPRAZOLE 40 MG (PROTONIX) TAB PO SCH (09:05)
[2020-03-02] MEDS: SODIUM BICARBONATE 650 MG TABLET (NON-FORMULARY) PO SCH ×3 (09:05→17:34)
[2020-03-02] MEDS: CARVEDILOL 6.25 MG (COREG) TAB PO SCH ×2 (09:05→21:09)
[2020-03-02 12:00] VITALS: BP 151/67
--- NOTE | 2020-03-02 13:30 | Progress Note - Hospitalist ---
Subjective HPI/CC On Admission Date Seen by Provider: Mar 02, 2020 Time Seen by Provider: 11:45 Subjective/Events-last exam he reports feeling okay this morning. He was up moving to the bathroom and did feel little bit more short of breath. He denies any shortness of breath at rest. He is having a cough. He is not having fevers. He has been eating and drinking. He has no other complaints or concerns. Focused Exam Time of Focused Exam: 17:15 Objective Exam Vital Signs Vital Signs Date Time Temp Pulse Resp B/P (MAP) Pulse Ox O2 Delivery O2 Flow Rate FiO2 03/02/20 12:53 56 03/02/20 12:00 36.7 20 151/67 (95) 93 Vapotherm 30.00 80.00 03/02/20 07:26 80 Capillary Refill : Less Than 3 SecondsLess Than 3 Seconds General Appearance: No Apparent Distress, Obese Respiratory: Lungs Clear, Normal Breath Sounds, No Respiratory Distress Cardiovascular: Regular Rate, Rhythm, No Edema, No Murmur Extremity: Normal Inspection, Non Tender, No Pedal Edema Neurologic/Psychiatric: Alert, Oriented x3, No Motor/Sensory Deficits, Normal Mood/Affect Skin: Normal Color, Warm/Dry Results/Procedures Lab Laboratory Tests 03/02/20 05:42 Patient resulted labs reviewed. Imaging: Reviewed Imaging Report Assessment/Plan Assessment and Plan Assess & Plan/Chief Complaint Acute respiratory failure due to COVID-19 Influenza B PNA Continue Vapotherm, currently 30 L and 80% FiO2, relatively stable Continue Decadron 20 mg daily s/p Remdesivir 5-day course s/p 2 unit convalescent plasma Continue Tamiflu Continue Rocephin, completing course of Azithromycin to day CKD 3b Baseline ~1.5 Cr 1.54 today, near baseline T2DM Steroid induced hyperglycemia Levemir Novolog with meals SSI HTN BPH Hypothyroidism Continue home meds DVT/GI Prophylaxis: Lovenox/PPI ELVIA on CKD , resolved Diagnosis/Problems Diagnosis/Problems (1) Acute respiratory failure due to COVID-19 Status: Acute (2) Acute kidney injury superimposed on chronic kidney disease Status: Acute (3) PNA (pneumonia) Status: Acute (4) Steroid-induced hyperglycemia Status: Acute (5) Influenza B Status: Acute (6) T2DM (type 2 diabetes mellitus) Status: Chronic (7) BPH (benign prostatic hyperplasia) Status: Chronic (8) Hypothyroidism Status: Chronic (9) HTN (hypertension) Status: Chronic (10) Gout Status: Chronic (11) Obesity Status: Chronic Clinical Quality Measures DVT/VTE Risk/Contraindication: Risk Factor Score Per Nursin RFS Level Per Nursing on Admit: 4+=Very High MAIA THOMSON MD Mar 02, 2020 13:30
[2020-03-02] MEDS: cefTRIAXone FOR IV USE 2,000 MG in WATER (STERILE) FOR INJECTION 20 ML IV SCH (13:52)
[2020-03-02 16:06] VITALS: BP 138/63
[2020-03-02] MEDS: AZITHROMYCIN 250 MG TAB (ZITHROMAX) PO SCH (17:34)
[2020-03-02] MEDS: ENOXAPARIN 40 MG/0.4 ML (LOVENOX) SYR SC SCH (17:36)
[2020-03-02] MEDS ORDERED: FUROSEMIDE 40 MG/4 ML INJ (LASIX) IVP ONE (19:30)
[2020-03-02 19:37] VITALS: BP 157/70
[2020-03-02] MEDS ORDERED: FUROSEMIDE 40 MG/4 ML INJ (LASIX) ONE (20:26)
[2020-03-02] MEDS: LORATADINE (CLARITIN) 10 MG TAB PO SCH (21:08)
[2020-03-02] MEDS: TAMSULOSIN 0.4 MG (FLOMAX) CAP PO SCH (21:08)
[2020-03-02] MEDS: ALLOPURINOL 300 MG (ZYLOPRIM) TAB PO SCH (21:09)
[2020-03-02] MEDS: MELATONIN 3 MG TABLET PO SCH (21:17)
[2020-03-03] VITALS (7 sets, daily range): BP systolic 125–166; BP diastolic 68–82
[2020-03-03] MEDS: RT-ALBUTEROL INHALER HFA (VENTOLIN HFA) 18 GM IH SCH ×4 (02:25→21:32)
[2020-03-03] MEDS: inSUlin ASPART (NovoLOG) 1 UNIT/0.01 ML (CHARGE PER UNIT) SC SCH ×7 (06:01→20:54)
[2020-03-03] MEDS: LEVOTHYROXINE 150 MCG (LEVOTHROID) TAB PO SCH (06:02)
[2020-03-03 06:08] LABS: BASOPHILS # (AUTO) 0.1 10^3/uL (0.0-0.1); BASOPHILS % (AUTO) 0 % (0-10); EOSINOPHILS % (AUTO) 0 % (0-10); HEMATOCRIT 41 % (40-54); HEMOGLOBIN 14.5 g/dL (13.3-17.7); LYMPHOCYTES # (AUTO) 0.9 10^3/uL (1.0-4.0); LYMPHOCYTES % (AUTO) 4 % (12-44); MEAN CORPUSCULAR HEMOGLOBIN 32 pg (25-34); MEAN CORPUSCULAR HGB CONC 36 g/dL (32-36); MEAN CORPUSCULAR VOLUME 88 fL (80-99); MEAN PLATELET VOLUME 12.4 fL (9.0-12.2); MONOCYTES # (AUTO) 1.1 10^3/uL (0.0-1.0); MONOCYTES % (AUTO) 5 % (0-12); NEUTROPHILS # (AUTO) 21.6 10^3/uL (1.8-7.8); NEUTROPHILS % (AUTO) 89 % (42-75); PLATELET COUNT 254 10^3/uL (130-400); WHITE BLOOD COUNT 24.4 10^3/uL (4.3-11.0)
[2020-03-03 06:36] LABS: POTASSIUM 3.3 MMOL/L (3.6-5.0)
[2020-03-03 06:37] LABS: CALCIUM 8.8 MG/DL (8.5-10.1)
[2020-03-03 06:41] LABS: CREATININE SERUM 2.24 MG/DL (0.60-1.30)
[2020-03-03 06:58] LABS: LYMPHOCYTES % (MANUAL) 2 %; MONOCYTES % (MANUAL) 3 %; NEUTROPHILS % (MANUAL) 95 %; RBC MORPH NORMAL
--- NOTE | 2020-03-03 07:22 | NUR ---
Notified Dr. Amaral and Dr. Haji about the following: - Rhythm changes per tele monitor - EKG ordered - Sinus Delvin - WBC this morning is 24.4 from 11.4 yesterday - Critical glucose = 50 No new orders at this time.
[2020-03-03] MEDS: ADVAIR HFA 115/21 MCG INHALER 8 GM IH SCH ×2 (08:17→21:32)
[2020-03-03] MEDS: PANTOPRAZOLE 40 MG (PROTONIX) TAB PO SCH (08:27)
[2020-03-03] MEDS: dexAMETHasone INJECTION 20 MG in NS (IVPB) 50 ML IV SCH (08:27)
[2020-03-03] MEDS ORDERED: FUROSEMIDE 40 MG/4 ML INJ (LASIX) IVP SCH (09:00)
--- NOTE | 2020-03-03 09:34 | NUR ---
DR LÓPEZ NOTIFIED OF PTS CHANGE IN BEHAVIOR, MUCH MORE CONFUSED THIS AM. SHE ORDERED ABG. I CALLED LISANDRO TO LET HER KNOW OF THE ORDER AND SHE SAID SHE WOULD BE RIGHT DOWN TO DO IT. Addendum: 03/03/20 at 0937 by DANIELLE CONTE RN WRONG PT
[2020-03-03] MEDS: CARVEDILOL 6.25 MG (COREG) TAB PO SCH ×2 (09:41→20:11)
[2020-03-03] MEDS: SODIUM BICARBONATE 650 MG TABLET (NON-FORMULARY) PO SCH ×3 (09:41→17:38)
[2020-03-03] MEDS: amLODIPine 5 MG (NORVASC) TAB PO SCH (09:41)
--- NOTE | 2020-03-03 11:05 | NUR ---
DR LÓPEZ NOTIFIED THAT B/S AT 324 AT 1100 AND THAT CALLED FOR 8 U SCHEDULED AND 14 U PER S/S C OF NOVOLOG. DR LÓPEZ SAID TO JUST ADMIN 8U.
--- NOTE | 2020-03-03 12:26 | Progress Note - Hospitalist ---
Subjective HPI/CC On Admission Date Seen by Provider: Mar 03, 2020 Time Seen by Provider: 12:14 Subjective/Events-last exam Pt reports feeling well. Still on Vapotherm but feeling better. Still dyspneic with exertion. Focused Exam Time of Focused Exam: 17:15 Objective Exam Vital Signs Vital Signs Date Time Temp Pulse Resp B/P (MAP) Pulse Ox O2 Delivery O2 Flow Rate FiO2 03/03/20 11:42 36.0 72 20 165/73 (103) 94 Vapotherm 30.00 80.00 03/03/20 08:17 80 Capillary Refill : Less Than 3 SecondsLess Than 3 Seconds General Appearance: No Apparent Distress, WD/WN Respiratory: Lungs Clear, No Respiratory Distress Cardiovascular: Regular Rate, Rhythm, No Murmur Neurologic/Psychiatric: Alert, Oriented x3 Results/Procedures Lab Laboratory Tests 03/03/20 05:58 Patient resulted labs reviewed. Imaging: Reviewed Imaging Report Assessment/Plan Assessment and Plan Assess & Plan/Chief Complaint Acute respiratory failure due to COVID-19 Influenza B PNA Continue Vapotherm, currently 30 L and 80% FiO2, relatively stable Continue Decadron 20 mg daily s/p Remdesivir 5-day course s/p 2 unit convalescent plasma Continue Tamiflu Continue Rocephin CKD 3b Baseline ~1.5 Cr 2.24, up today likely due to diuresis T2DM Steroid induced hyperglycemia Levemir Novolog with meals SSI HTN BPH Hypothyroidism Continue home meds DVT/GI Prophylaxis: Lovenox/PPI ELVIA on CKD , resolved Clinical Quality Measures DVT/VTE Risk/Contraindication: Risk Factor Score Per Nursin RFS Level Per Nursing on Admit: 4+=Very High SHILPA LÓPEZ MD Mar 03, 2020 12:25
[2020-03-03] MEDS: cefTRIAXone FOR IV USE 2,000 MG in WATER (STERILE) FOR INJECTION 20 ML IV SCH (14:40)
--- NOTE | 2020-03-03 16:24 | NUR ---
DR LÓPEZ NOTIFIED OF PTS HIGH B/S OF 440. ORDER TO ADMIN 17 U NOVOLOG, WHICH IS THE HIGHEST ON S/S.
[2020-03-03] MEDS ORDERED: ENOXAPARIN 30 MG/0.3 ML (LOVENOX) SYR SC SCH (17:00)
[2020-03-03] MEDS: LORATADINE (CLARITIN) 10 MG TAB PO SCH (20:11)
[2020-03-03] MEDS: TAMSULOSIN 0.4 MG (FLOMAX) CAP PO SCH (20:11)
[2020-03-03] MEDS: MELATONIN 3 MG TABLET PO SCH (20:11)
[2020-03-03] MEDS: ALLOPURINOL 300 MG (ZYLOPRIM) TAB PO SCH (20:11)
[2020-03-04] MEDS: RT-ALBUTEROL INHALER HFA (VENTOLIN HFA) 18 GM IH SCH ×4 (02:15→18:49)
[2020-03-04 04:21] VITALS: BP 148/75
[2020-03-04 05:00] LABS: BASOPHILS % (AUTO) 0 % (0-10); EOSINOPHILS % (AUTO) 0 % (0-10); HEMATOCRIT 38 % (40-54); HEMOGLOBIN 13.3 g/dL (13.3-17.7); LYMPHOCYTES # (AUTO) 0.6 10^3/uL (1.0-4.0); LYMPHOCYTES % (AUTO) 3 % (12-44); MEAN CORPUSCULAR HEMOGLOBIN 31 pg (25-34); MEAN CORPUSCULAR HGB CONC 35 g/dL (32-36); MEAN CORPUSCULAR VOLUME 89 fL (80-99); MEAN PLATELET VOLUME 12.4 fL (9.0-12.2); MONOCYTES # (AUTO) 0.7 10^3/uL (0.0-1.0); MONOCYTES % (AUTO) 4 % (0-12); NEUTROPHILS % (AUTO) 90 % (42-75); PLATELET COUNT 209 10^3/uL (130-400); WHITE BLOOD COUNT 18.8 10^3/uL (4.3-11.0)
[2020-03-04 05:14] LABS: POTASSIUM 3.5 MMOL/L (3.6-5.0)
[2020-03-04 05:15] LABS: CALCIUM 8.3 MG/DL (8.5-10.1)
[2020-03-04 05:20] LABS: CREATININE SERUM 1.78 MG/DL (0.60-1.30)
[2020-03-04] MEDS: inSUlin ASPART (NovoLOG) 1 UNIT/0.01 ML (CHARGE PER UNIT) SC SCH ×7 (05:28→21:33)
[2020-03-04] MEDS: LEVOTHYROXINE 150 MCG (LEVOTHROID) TAB PO SCH (06:04)
[2020-03-04] MEDS: ADVAIR HFA 115/21 MCG INHALER 8 GM IH SCH ×2 (07:26→18:49)
[2020-03-04 08:00] VITALS: BP 182/78
[2020-03-04] MEDS: SODIUM BICARBONATE 650 MG TABLET (NON-FORMULARY) PO SCH ×3 (08:48→17:29)
[2020-03-04] MEDS: dexAMETHasone INJECTION 20 MG in NS (IVPB) 50 ML IV SCH (08:49)
[2020-03-04] MEDS: amLODIPine 5 MG (NORVASC) TAB PO SCH (08:50)
[2020-03-04] MEDS: PANTOPRAZOLE 40 MG (PROTONIX) TAB PO SCH (08:50)
[2020-03-04] MEDS: CARVEDILOL 6.25 MG (COREG) TAB PO SCH ×2 (08:50→21:32)
--- NOTE | 2020-03-04 11:50 | Physician Query Clarification ---
PQ-Uncertain Diagnosis Admission/Discharge Admission Date: Feb 26, 2020 at 17:24 Discharge Date: Dr. Haji, The medical record reflects the following clinical scenario: History/Risk Factors: COVID 19 positive Pneumonia Influenza B Acute renal failure Acute respiratory failure with hypoxia Clinical Findings: WBC 8.0, T 36.2, P 102, Resp 18, BP 168/105 Lactic acid 1.13. Blood dyauskv-ovxqs-bm growth. Treatment:IV Azithromycin 500mg., IV Rocephin Question: Is Sepsis or severe sepsis a clinically valid diagnosis? Please clarify Sepsis / severe sepsis was documented in the ED impression by Dr. Choi and Sepsis with pneumonia was documented in Dr. Arreola consult with no further documentation in the medical record. Please document a response in Progress Note or Discharge Summary. 1. Yes, clinically valid, condition resolved. 2. No, condition ruled out. 3. Other, with explanation of clinical findings. 4. Undetermined, no explanation for clinical findings. PHYSICIAN RESPONSE Diagnosis clinically valid: No, conditon ruled out Please remember a lack of response to the above will prompt a phone page by [facility]Coding staff. In responding to this query, please exercise your independent professional judgment. The purpose of this communication is to more accurately reflect the complexity of your patients condition. The fact that a question is asked does not imply that any particular answer is desired or expected. Thank you for your timely response to this clarification. Requestors name: Magdalena Cooper [facility] Phone # ext [phone] or [phone] THIS PHYSICIAN QUERY FORM IS A PERMANENT PART OF THE MEDICAL RECORD MAGDALENA COOPER Mar 04, 2020 11:50 SHILPA HAJI MD Mar 04, 2020 14:05
[2020-03-04 12:00] VITALS: BP 146/61
[2020-03-04] MEDS: cefTRIAXone FOR IV USE 2,000 MG in WATER (STERILE) FOR INJECTION 20 ML IV SCH (13:37)
--- NOTE | 2020-03-04 13:43 | Progress Note - Hospitalist ---
Subjective HPI/CC On Admission Date Seen by Provider: Mar 04, 2020 Time Seen by Provider: 13:38 Subjective/Events-last exam Pt reports feeling well. Oxygen requirement going down. No new complaints. Wants to go home. Focused Exam Time of Focused Exam: 17:15 Objective Exam Vital Signs Vital Signs Date Time Temp Pulse Resp B/P (MAP) Pulse Ox O2 Delivery O2 Flow Rate FiO2 03/04/20 12:29 77 03/04/20 12:00 35.8 20 146/61 (89) 90 Vapotherm 30.00 65.00 03/04/20 08:00 60 Capillary Refill : Less Than 3 SecondsLess Than 3 Seconds General Appearance: No Apparent Distress, WD/WN Respiratory: Lungs Clear, No Accessory Muscle Use, Other (on Vapotherm) Cardiovascular: Regular Rate, Rhythm, No Murmur Neurologic/Psychiatric: Alert, Oriented x3, Normal Mood/Affect Results/Procedures Lab Laboratory Tests 03/04/20 04:16 Patient resulted labs reviewed. Imaging: Reviewed Imaging Report Assessment/Plan Assessment and Plan Assess & Plan/Chief Complaint Acute respiratory failure due to COVID-19 Influenza B PNA Continue Vapotherm, currently 30 L and 65% FiO2, relatively stable Continue Decadron 20 mg daily s/p Remdesivir 5-day course s/p 2 unit convalescent plasma Completed Tamiflu Continue Rocephin CKD 3b Baseline ~1.5 Cr down to 1.78 T2DM Steroid induced hyperglycemia Levemir Novolog with meals SSI HTN BPH Hypothyroidism Continue home meds DVT/GI Prophylaxis: Lovenox/PPI ELVIA on CKD , resolved Clinical Quality Measures DVT/VTE Risk/Contraindication: Risk Factor Score Per Nursin RFS Level Per Nursing on Admit: 4+=Very High SHILPA LÓPEZ MD Mar 04, 2020 13:43
--- NOTE | 2020-03-04 13:51 | NUR ---
"RD ASSESSMENT PMHx: chronic constipation; hypothyroidism; DM; SurgHx - 1/3 colon removed PT INTERACTION: Note pt is currently in COVID isolation. Note attempt to conduct nutrition assessment for LOS via phone, but pt did not answer. Note all diet information gathered for assessment is per chart review. Note avg PO intake 75% x5d. Note last BM was 03/03, and pt not currently on bowel regimen. Note recent 4# wt loss x8mon. Note unable to determine current level of DM control. Note recent HbA1c of 7.8 (02/28/2020). ABNORMAL NUTRITION-RELATED LAB VALUES LOW: K 3.5; Ca 8.3; HIGH: BUN 48; cr 1.78; glu 132 Est. kcal needs: 1375 kcal | 15 kcal/kg Est. Pro needs: 72 g Pro | 0.8 g Pro/kg PES STATEMENT: Due to current PO intake, no nutrition diagnosis at this time (NO-1.1) INTERVENTION: Continue with current diet order of CHO 75g/m 0snack diet. Did not offer diet education on DM management d/t COVID isolation. Will continue to follow and reassess as pt needs, intake, and status change. Betzy Blanton, MS RD LD"
[2020-03-04 15:42] VITALS: BP 135/63
[2020-03-04] MEDS: ENOXAPARIN 40 MG/0.4 ML (LOVENOX) SYR SC SCH (17:29)
[2020-03-04 20:59] VITALS: BP 160/76
[2020-03-04] MEDS: ALLOPURINOL 300 MG (ZYLOPRIM) TAB PO SCH (21:32)
[2020-03-04] MEDS: LORATADINE (CLARITIN) 10 MG TAB PO SCH (21:32)
[2020-03-04] MEDS: TAMSULOSIN 0.4 MG (FLOMAX) CAP PO SCH (21:32)
[2020-03-04] MEDS: MELATONIN 3 MG TABLET PO SCH (21:33)
[2020-03-05] VITALS (8 sets, daily range): BP systolic 149–191; BP diastolic 74–85
[2020-03-05] MEDS: RT-ALBUTEROL INHALER HFA (VENTOLIN HFA) 18 GM IH SCH ×4 (02:22→20:18)
[2020-03-05 05:50] LABS: BASOPHILS # (AUTO) 0.1 10^3/uL (0.0-0.1); BASOPHILS % (AUTO) 0 % (0-10); EOSINOPHILS % (AUTO) 0 % (0-10); HEMATOCRIT 38 % (40-54); HEMOGLOBIN 12.7 g/dL (13.3-17.7); LYMPHOCYTES # (AUTO) 0.5 10^3/uL (1.0-4.0); LYMPHOCYTES % (AUTO) 3 % (12-44); MEAN CORPUSCULAR HEMOGLOBIN 31 pg (25-34); MEAN CORPUSCULAR HGB CONC 34 g/dL (32-36); MEAN CORPUSCULAR VOLUME 90 fL (80-99); MONOCYTES # (AUTO) 0.7 10^3/uL (0.0-1.0); MONOCYTES % (AUTO) 4 % (0-12); NEUTROPHILS # (AUTO) 16.4 10^3/uL (1.8-7.8); NEUTROPHILS % (AUTO) 89 % (42-75); PLATELET COUNT 217 10^3/uL (130-400); WHITE BLOOD COUNT 18.5 10^3/uL (4.3-11.0)
[2020-03-05 06:12] LABS: POTASSIUM 3.8 MMOL/L (3.6-5.0)
[2020-03-05 06:17] LABS: CREATININE SERUM 1.95 MG/DL (0.60-1.30)
[2020-03-05] MEDS: LEVOTHYROXINE 150 MCG (LEVOTHROID) TAB PO SCH (06:31)
[2020-03-05] MEDS: inSUlin ASPART (NovoLOG) 1 UNIT/0.01 ML (CHARGE PER UNIT) SC SCH ×7 (06:31→21:57)
[2020-03-05] MEDS: SODIUM BICARBONATE 650 MG TABLET (NON-FORMULARY) PO SCH ×3 (09:28→17:10)
[2020-03-05] MEDS: CARVEDILOL 6.25 MG (COREG) TAB PO SCH ×2 (09:29→21:56)
[2020-03-05] MEDS: PANTOPRAZOLE 40 MG (PROTONIX) TAB PO SCH (09:29)
[2020-03-05] MEDS: dexAMETHasone INJECTION 20 MG in NS (IVPB) 50 ML IV SCH (09:32)
[2020-03-05] MEDS: amLODIPine 5 MG (NORVASC) TAB PO SCH (09:36)
--- NOTE | 2020-03-05 10:20 | Progress Note - Hospitalist ---
Subjective HPI/CC On Admission Date Seen by Provider: Mar 05, 2020 Time Seen by Provider: 10:13 Subjective/Events-last exam Pt reports feeling well. No complaints other than wanting to go home. Discussed that it will take time and we will even consider swing bed status. Focused Exam Time of Focused Exam: 17:15 Objective Exam Vital Signs Vital Signs Date Time Temp Pulse Resp B/P (MAP) Pulse Ox O2 Delivery O2 Flow Rate FiO2 03/05/20 08:00 35.6 89 20 189/85 (119) 89 Vapotherm 25.00 70.00 03/05/20 02:22 65 Capillary Refill : Less Than 3 SecondsLess Than 3 Seconds General Appearance: No Apparent Distress, WD/WN Respiratory: No Accessory Muscle Use, Decreased Breath Sounds, Other (on Vapotherm) Cardiovascular: Regular Rate, Rhythm, No Murmur Neurologic/Psychiatric: Alert, Oriented x3 Results/Procedures Lab Laboratory Tests 03/05/20 05:35 Patient resulted labs reviewed. Imaging: Reviewed Imaging Report Assessment/Plan Assessment and Plan Assess & Plan/Chief Complaint Acute respiratory failure due to COVID-19 Influenza B PNA Continue Vapotherm, currently 25 L and 70% FiO2, relatively stable Swing bed eval Continue Decadron 20 mg daily for now, hopeful to wean by end of week s/p Remdesivir 5-day course s/p 2 unit convalescent plasma Completed Tamiflu Continue Rocephin CKD 3b Baseline ~1.5 Cr down to 1.95 this AM T2DM Steroid induced hyperglycemia Levemir Novolog with meals SSI Labile blood sugars but consistently running high all day yesterday and this AM, will increase Levemir to 12 units BID HTN BPH Hypothyroidism Continue home meds DVT/GI Prophylaxis: Lovenox/PPI ELVIA on CKD , resolved Clinical Quality Measures DVT/VTE Risk/Contraindication: Risk Factor Score Per Nursin RFS Level Per Nursing on Admit: 4+=Very High SHILPA LÓPEZ MD Mar 05, 2020 10:20
[2020-03-05] MEDS: ADVAIR HFA 115/21 MCG INHALER 8 GM IH SCH ×2 (10:35→20:18)
--- NOTE | 2020-03-05 12:25 | NUR ---
DR. LÓPEZ NOTIFIED OF ELEVATED BLOOD PRESSURE, WILL PLACE NEW ORDERS IN [facility].
[2020-03-05] MEDS: cefTRIAXone FOR IV USE 2,000 MG in WATER (STERILE) FOR INJECTION 20 ML IV SCH (13:17)
[2020-03-05] MEDS: FLUTICASONE NASAL SPRAY (FLONASE) 16 GM BTL NS SCH (13:30)
[2020-03-05] MEDS ORDERED: hydrALAZINE (APESOLINE) 20 MG/ML VIAL IV PRN (13:30)
[2020-03-05] MEDS: ENOXAPARIN 40 MG/0.4 ML (LOVENOX) SYR SC SCH (17:10)
[2020-03-05] MEDS: MELATONIN 3 MG TABLET PO SCH (21:56)
[2020-03-05] MEDS: TAMSULOSIN 0.4 MG (FLOMAX) CAP PO SCH (21:56)
[2020-03-05] MEDS: LORATADINE (CLARITIN) 10 MG TAB PO SCH (21:56)
[2020-03-05] MEDS: ALLOPURINOL 300 MG (ZYLOPRIM) TAB PO SCH (21:56)
[2020-03-06 00:55] VITALS: BP 158/71
[2020-03-06 04:00] VITALS: BP 145/79
[2020-03-06] MEDS: inSUlin ASPART (NovoLOG) 1 UNIT/0.01 ML (CHARGE PER UNIT) SC SCH ×2 (05:36→08:00)
--- NOTE | 2020-03-06 05:44 | NUR ---
patient had blood sugar of 52, gave juice with sugar, peanut butter and crackers.
[2020-03-06] MEDS: LEVOTHYROXINE 150 MCG (LEVOTHROID) TAB PO SCH (06:19)
[2020-03-06] MEDS ORDERED: DEXTROSE 50% 50 ML (IMS) SYR ONE ×2 (06:19→06:21)
[2020-03-06 06:27] LABS: BASOPHILS # (AUTO) 0.1 10^3/uL (0.0-0.1); BASOPHILS % (AUTO) 0 % (0-10); EOSINOPHILS % (AUTO) 0 % (0-10); HEMATOCRIT 42 % (40-54); HEMOGLOBIN 14.5 g/dL (13.3-17.7); LYMPHOCYTES # (AUTO) 0.7 10^3/uL (1.0-4.0); LYMPHOCYTES % (AUTO) 3 % (12-44); MEAN CORPUSCULAR HEMOGLOBIN 31 pg (25-34); MEAN CORPUSCULAR HGB CONC 34 g/dL (32-36); MEAN CORPUSCULAR VOLUME 91 fL (80-99); MONOCYTES # (AUTO) 0.9 10^3/uL (0.0-1.0); MONOCYTES % (AUTO) 4 % (0-12); NEUTROPHILS # (AUTO) 17.6 10^3/uL (1.8-7.8); NEUTROPHILS % (AUTO) 85 % (42-75); PLATELET COUNT 241 10^3/uL (130-400); WHITE BLOOD COUNT 20.6 10^3/uL (4.3-11.0)
[2020-03-06 06:48] LABS: POTASSIUM 3.9 MMOL/L (3.6-5.0)
[2020-03-06 06:49] LABS: CALCIUM 8.6 MG/DL (8.5-10.1)
[2020-03-06 06:54] LABS: CREATININE SERUM 1.59 MG/DL (0.60-1.30)
[2020-03-06] MEDS: RT-ALBUTEROL INHALER HFA (VENTOLIN HFA) 18 GM IH SCH (07:02)
[2020-03-06] MEDS: ADVAIR HFA 115/21 MCG INHALER 8 GM IH SCH (07:02)
[2020-03-06 08:00] VITALS: BP 125/58
--- NOTE | 2020-03-06 08:09 | NUR ---
LATE ENTRY FOR [facility]: Dr Haji asked me to call and speak to patient regarding what SWB is and answer any questions he might have. I spoke to patient by phone due to his being in isolation due to CV19. he is agreeable to accessing his SKILLED benefits to continue to monitor Kidney Function and to titrate his Oxygen level to dischargeable level, while continuing to work with PT/OT. for strength. Patient does live at home with his and son. Addendum: 03/06/20 at 0813 by SILVIA KNIGHT RN Entry is for 03/05/2020
[2020-03-06] MEDS: PANTOPRAZOLE 40 MG (PROTONIX) TAB PO SCH (08:38)
[2020-03-06] MEDS: SODIUM BICARBONATE 650 MG TABLET (NON-FORMULARY) PO SCH (08:38)
[2020-03-06] MEDS: CARVEDILOL 6.25 MG (COREG) TAB PO SCH (08:39)
[2020-03-06] MEDS: amLODIPine 5 MG (NORVASC) TAB PO SCH (08:39)
[2020-03-06] MEDS: FLUTICASONE NASAL SPRAY (FLONASE) 16 GM BTL NS SCH (08:40)
[2020-03-06] MEDS: dexAMETHasone INJECTION 20 MG in NS (IVPB) 50 ML IV SCH (08:40)
--- NOTE | 2020-03-06 09:57 | NUR ---
Swing Bed Note: Visited with Rigo about swing bed again to confirm if he had accessed his benefits anywhere else in the recent past. He confirmed that he has not ever been in a intermediate and has not been in a hospital prior to this stay where he had to stay for any length of time and did not access swing bed. He is agreeable to access swing bed here and understands that our goal for him is to continue to wean his oxygen to acceptable home oxygen level. He is currently using Vapotherm for his oxygen needs. This has steadily been able to decrease however there is no crossover home oxygen delivery system for this need. He also continues to require several different IV medications for his plan of care. He confirms that he is able to get up in the room by himself but needs a staff member to just be there with him because his oxygen need varies and he needs that to be monitored. He is eating meals in his chair at bedside and reports that he feels strong and is doing well otherwise independently. He will admit to swing bed today.
--- NOTE | 2020-03-06 10:51 | Discharge Summary ---
Diagnosis/Chief Complaint Date of Admission Feb 26, 2020 at 17:24 Date of Discharge Primary Care Pb Castle MD Discharge Diagnosis (1) Acute respiratory failure due to COVID-19 Status: Acute (2) Acute kidney injury superimposed on chronic kidney disease Status: Acute (3) PNA (pneumonia) Status: Acute (4) Steroid-induced hyperglycemia Status: Acute (5) Influenza B Status: Acute (6) T2DM (type 2 diabetes mellitus) Status: Chronic (7) BPH (benign prostatic hyperplasia) Status: Chronic (8) Hypothyroidism Status: Chronic (9) HTN (hypertension) Status: Chronic (10) Gout Status: Chronic (11) Obesity Status: Chronic Discharge Summary Discharge Physical Exam Allergies: Coded Allergies: No Known Drug Allergies (Verified , 07/29/09) Vitals & I&Os Vital Signs Date Time Temp Pulse Resp B/P (MAP) Pulse Ox O2 Delivery O2 Flow Rate FiO2 03/06/20 09:00 Vapotherm 20.00 55 03/06/20 08:00 36.1 97 22 125/58 (80) 88 General Appearance: No Apparent Distress, WD/WN Respiratory: Lungs Clear, Other (on Vapotherm) Cardiovascular: Regular Rate, Rhythm, No Murmur Gastrointestinal: Normal Bowel Sounds, Non Tender, Soft Hospital Course Pt was admitted due to acute hypoxic respiratory failure from COVID19. He was treated with decadron, remdesivir, and convalescent plasma. He continued to require high oxygen supplementation and IV Decadron and was discharged to swing bed for continued oxygen weaning, strengthening, and IV medications. Labs (last 24 hrs) Microbiology 02/26/20 Blood Culture - Final, Complete No growth 02/26/20 Influenza Types A,B Antigen (JORDAN) - Final, Complete Patient resulted labs reviewed. Pending Labs Imaging: Reviewed Imaging Report Discussion & Recommendations Discharge Planning: >30 minutes discharge planning Discharge Home Medications: Active Scripts Active Reported Docusate Sodium 100 Mg Capsule 100 Mg PO BID PRN Iron (Ferrous Sulfate) 325 Mg Tablet 325 Mg PO DAILY Synthroid (Levothyroxine Sodium) 150 Mcg Tablet 150 Mcg PO DAILY Doxycycline Hyclate 100 Mg Capsule 100 Mg PO BID FILLED 02-22-2020 #20/10 DAY SUPPLY Prednisone 10 Mg Tab Mg PO DAILY FILLED 02-22-2020 #30 TAPER DOSE: 5 TABS DAILY X 2 DAYS 4 TABS DAILY X 2 DAYS THEN DECREASE BY 1 TAB EVERY OTHER DAY UNTIL ALL TAKEN Benzonatate 100 Mg Capsule 100-200 Mg PO TID PRN Trulicity (Dulaglutide) 0.75 Mg/0.5 Ml Pen.injctr 0.75 Mg SQ TUESDAY Flomax (Tamsulosin HCl) 0.4 Mg Cap 0.4 Mg PO HS Linzess (Linaclotide) 290 Mcg Capsule 290 Mcg PO DAILY Meloxicam 15 Mg Tablet 7.5 Mg PO DAILY PRN TAKES 1/2 OF A 15MG TO EQUAL 7.5MG Amlodipine Besylate 10 Mg Tablet 10 Mg PO DAILY Glipizide 10 Mg Tablet 10 Mg PO BID Levocetirizine Dihydrochloride 5 Mg Tablet 5 Mg PO HS Allopurinol 300 Mg Tablet 300 Mg PO HS Instructions to patient/family Please see electronic discharge instructions given to patient. Clinical Quality Measures DVT/VTE Risk/Contraindication: Risk Factor Score Per Nursin RFS Level Per Nursing on Admit: 4+=Very High SHILPA LÓPEZ MD Mar 06, 2020 10:51
== END 2020-03-06 11:43 | disposition swing bed (61) | DRG 177 ==
LOC: EDUNIT# 13:32 → ER 13:34 → ICU 17:24 → 4TH 02-27 12:40
PROVIDERS: ADMIT Internal Medicine; ATTEND Internal Medicine
PROC: XW033E5 Introduction of Remdesivir Anti-infective into Peripheral Vein, Percutaneous Approach, New Technology Group 5 (ICD-10-PCS; principal; 2020-02-27)
PROC: XW13325 Transfusion of Convalescent Plasma (Nonautologous) into Peripheral Vein, Percutaneous Approach, New Technology Group 5 (ICD-10-PCS; 2020-02-27)
DX: U07.1 COVID-19 (principal); J12.89 Other viral pneumonia; J10.08 Influenza due to other identified influenza virus with other specified pneumonia; J96.01 Acute respiratory failure with hypoxia; N17.9 Acute kidney failure, unspecified; I12.9 Hypertensive chronic kidney disease with stage 1 through stage 4 chronic kidney disease, or unspecified chronic kidney disease; N18.32 Chronic kidney disease, stage 3b; E11.65 Type 2 diabetes mellitus with hyperglycemia; T38.0X5A Adverse effect of glucocorticoids and synthetic analogues, initial encounter; E03.9 Hypothyroidism, unspecified; E66.9 Obesity, unspecified; M10.9 Gout, unspecified; S46.901A Unspecified injury of unspecified muscle, fascia and tendon at shoulder and upper arm level, right arm, initial encounter; N40.0 Benign prostatic hyperplasia without lower urinary tract symptoms; R41.0 Disorientation, unspecified; M19.91 Primary osteoarthritis, unspecified site; L40.9 Psoriasis, unspecified; W55.82XA Struck by other mammals, initial encounter; Z68.31 Body mass index [BMI] 31.0-31.9, adult; Z90.49 Acquired absence of other specified parts of digestive tract; Z96.653 Presence of artificial knee joint, bilateral
CPT/HCPCS: 36415; 70450; 71045; 72125; 73030; 80048; 80053; 82550; 82805; 82962; 83036; 83605; 83735; 83880; 84100; 84145; 85007; 85025; 85027; 85379; 85610; 85730; 86141; 86900; 86901; 87040; 87635; 87804; 93005; 94640; 94760; 96361; 96372; 96374; 96375; 99291

== ENCOUNTER 2020-03-06 10:20 | Inpatient (IN) | payer MEDICARE, OTHER ==
[~2020-03-06] VITALS: Ht 170.1 cm; Wt 93.1 kg
[~2020-03-06 10:20] MED LIST changes: +AMLO-251 PO; -AMLO10TA7 PO; +BENZ-36 PO; +DOCU100C37 PO; +DOXY100C2 PO; +FERR-84 PO; +LEVO150T PO; +PRD10T PO
--- NOTE | 2020-03-06 11:48 | NUR ---
PT ADMITTED TO SWING BED STATUS AT THIS TIME.
[2020-03-06] MEDS ORDERED: ACETAMINOPHEN 650 MG SUPP (TYLENOL) PR PRN (12:00)
[2020-03-06] MEDS ORDERED: IBUPROFEN 600 MG (MOTRIN) TAB PO PRN (12:00)
[2020-03-06] MEDS ORDERED: hydrALAZINE (APESOLINE) 20 MG/ML VIAL IV PRN (12:00)
[2020-03-06] MEDS ORDERED: ACETAMINOPHEN 325 MG TABLET PO PRN (12:00)
--- NOTE | 2020-03-06 13:13 | NUR ---
Swing Bed Note: Visited with Rigo about swing bed again to confirm if he had accessed his benefits anywhere else in the recent past. He confirmed that he has not ever been in a senior care and has not been in a hospital prior to this stay where he had to stay for any length of time and did not access swing bed. He is agreeable to access swing bed here and understands that our goal for him is to continue to wean his oxygen to acceptable home oxygen level. He is currently using Vapotherm for his oxygen needs. This has steadily been able to decrease however there is no crossover home oxygen delivery system for this need. He also continues to require several different IV medications for his plan of care. He confirms that he is able to get up in the room by himself but needs a staff member to just be there with him because his oxygen need varies and he needs that to be monitored. He is eating meals in his chair at bedside and reports that he feels strong and is doing well otherwise independently. He will admit to swing bed today.
--- NOTE | 2020-03-06 13:19 | NUR ---
Admission Drug Regimen Review Completed: Date: 03/06/20 Time: 1320 Physician Notified: SHILPA LÓPEZ MD Date: 03/06/20 Time: 1320 Issue Identified; Action Plan to Resolve and Any Action Taken: [employer] identified insulin SSI C as a duplicate medication and so it auto d/c'd the medication. This was ordered back in [employer] per orders. Advair Hfa 115/21 MCG 2 puffs IH RT BID entered back into [employer]. gave orders to order and did not want that d/c'd. [employer] auto d/c'd this. IT ticket placed to investigate.
[2020-03-06] MEDS: SODIUM BICARBONATE 650 MG TABLET (NON-FORMULARY) PO SCH ×2 (13:58→17:13)
[2020-03-06] MEDS: inSUlin ASPART (NovoLOG) 1 UNIT/0.01 ML (CHARGE PER UNIT) SC SCH ×4 (13:58→21:31)
--- NOTE | 2020-03-06 14:01 | NUR ---
PHYSICAL THERAPY IN ROOM WORKING WITH PT, ALERTED THIS RN PT OXYGEN WAS IN THE 60'S ON VAPOTHERM 20L 55%. VAPOTHERM TURNED TO 40L 70% PT 87-88%. RT NOTIFIED AND AND ON THE WAY TO PT ROOM. VAPOTHERM 40L 100% PT 02 94% HR 98. PT SITTING UP IN CHAIR, REPORTS BREATHING IS BETTER.
[2020-03-06] MEDS: RT-ALBUTEROL INHALER HFA (VENTOLIN HFA) 18 GM IH SCH ×2 (14:10→23:07)
--- NOTE | 2020-03-06 14:31 | Physical Therapy Evaluation ---
PT Evaluation-General Medical Diagnosis Admission Date Mar 06, 2020 at 12:14 Medical Diagnosis: Covid (+)/delirium/acute respiratory failure/Flu B Onset Date: Feb 26, 2020 Therapy Diagnosis Therapy Diagnosis: debility/decreased pulmonary function Height/Weight Weight (Pounds): 222 Weight Bear Status Right Lower Extremity: Right Weight Bearing/Tolerated Left Lower Extremity: Left Weight Bearing/Tolerated Referral Physician: Raissa Reason for Referral: Evaluation/Treatment Medical History Pertinent Medical History: DM, Hypothroidism Additional Medical History right biceps tendon rupture due to being kicked by a calf and trying to catch self Current History SWB status Reviewed History: Yes Social History Home: Single Level Prior Prior Level of Function SCALE: Activities may be completed with or without assistive devices. 4-Mdddlrqzxs-sqntpqy completes the activity by him/herself with no assistance from a helper. 5-Set-up or Clean-up Assistance-helper sets up or cleans up; patient completes activity. [place] assists only prior to or following the activity. 4-Supervision or Touching Assistance-helper provides verbal cues and/or touching/steadying and/or contact guard assistance as patient completes ac tivity. Assistance may be provided throughout the activity or intermittently. 3-Partial/Moderate Assistance-helper does LESS THAN HALF the effort. [place] lifts, holds or supports trunk or limbs, but provides less than half the effort. 2-Substantial/Maximal Assistance-helper does MORE THAN HALF the effort. [place] lifts or holds trunk or limbs and provides more than half the effort. 0-Evmexsngt-wvodki does ALL the effort. Patient does none of the effort to complete the activity. Or, the assistance of 2 or more helpers is required for the patient to complete the activity. If activity was not attempted, code reason: 7-Patient Refused. 9-Not Applicable-not attempted and the patient did not perform the activity before the current illness, exacerbation or injury. 10-Not Attempted due to Environmental Limitations-(lack of equipment, weather restraints, etc.). 88-Not Attempted due to Medical Conditions or Safety Concerns. Bed Mobility: 6 Transfers (B,C,W/C): 6 Gait: 6 Stairs: 6 Indoor Mobility (Ambulation): Independent Stairs: Independent Prior Devices Use: None PT Evaluation-Current Subjective Patient agrees to PT. Currently on Vapotherm 20L/50% Objective Patient Orientation: Normal For Age Attachments: Oxygen ( Vapotherm 20L/50%) ROM/Strength ROM Lower Extremities bilateral LE WFL Strength Lower Extremities 4+/5 grossly bilateral LE Integumentary/Posture Integumentary refer to nursing notes Bowel Incontinence: No Bladder Incontinence: No Posture WFL Neuromuscular (Tone, Coordination, Reflexes) grossly intact Sensory Vision: Functional Hearing: Impaired Transfers Roll Left & Right (QC): 6 Sit to Lying (QC): 6 Lying to Sitting/Side of Bed(Q: 6 Sit to Stand (QC): 5 Chair/Ilz-sa-Vkypg Xfer(QC): 5 Toilet Transfer (QC): 5 Car Transfer (QC): 88 Gait Does the Patient Walk?: Yes Mode of Locomotion: Walk Anticipated Mode of Locomotion: Walk Walk 10 feet (QC): 6 Walk 50 ft with 2 Turns(QC): 88 (connected to Vapotherm (decreased tube length to allow)) Walk 150 ft (QC): 88 (connected to Vapotherm ) Walking 10ft/uneven surface-QC: 88 (unavailble) Distance: 15' x 2 Gait Assistive Device: None Comments/Gait Description safe and functional with patient negotiating Vapotherm to and from restroom Wheelchair Training Does the Pt Use a Wheelchair?: No Wheel 50 ft with 2 turns (QC): 9 Wheel 150 ft (QC): 9 Stairs 1 Step (curb) (QC): 88 4 Steps (QC): 88 12 Steps (QC): 88 Balance Sitting Static: Normal Sitting Dynamic: Normal Standing Static: Normal Standing Dynamic: Normal Picking up an Object (QC): 6 Treatment Patient ambulated to restroom per his request for BM. Patient sat for 10 min, toileted self independently then had increase c/o SOA with noted dyspnea. Vitals machine retrieved and SAO2 62% on Vapotherm 20/50. RN summonsed with RN instructing PT to increase settings to 30/60 then 40/70 while she donned appropriate PPE. Patient required 10 min to recover with increase O2 demand with patient SAO2 89% and RN remaining in room. Assessment/Needs 84 y.o. male, is currently at independent OF with gross motor skills, however, will be seen by skilled PT to address pulmonary function with exercise and amb ulation (Vapotherm will limit distance to 15'). Rehab Potential: Fair PT Jail Goals Jail Goals PT Jail Goals Time Frame: Mar 22, 2020 Roll Left & Right (QC): 6 Sit to Lying (QC): 6 Lying-Sitting on Side/Bed(QC): 6 Sit to Stand (QC): 6 Chair/Bhn-dq-Oegzi Xfer(QC): 6 Toilet Transfer (QC): 6 Car Transfer (QC): 6 Does the Patient Walk: Yes Walk 10 feet (QC): 6 Walk 50ft with 2 Turns (QC): 6 Walk 150 ft (QC): 6 Walking 10ft on Uneven Surface: 6 1 Step (curb) (QC): 6 4 Steps (QC): 6 12 Steps (QC): 9 Picking up an Object (QC): 6 Does the Pt use WC or Scooter?: No Wheel 50 feet with 2 turns (QC: 9 Wheel 150 feet: 9 PT Plan Problem List Problem List: Activity Tolerance (decreased SAO2 with minimal activity) Treatment/Plan Treatment Plan: Continue Plan of Care Treatment Plan: Education, Functional Activity Yfn, Functional Strength, Gait, Safety, Therapeutic Exercise Treatment Duration: Mar 22, 2020 Frequency: 6 times per week Estimated Hrs Per Day: .25 hour per day Patient and/or Family Agrees t: Yes Time/GCodes Time In: 1340 Time Out: 1403 Total Billed Treatment Time: 23 Total Billed Treatment 1 visit EVModC 9 min FA 14 min DESIREE SMITH PT Mar 06, 2020 14:31
[2020-03-06 16:28] VITALS: BP 139/65
[2020-03-06] MEDS: ENOXAPARIN 40 MG/0.4 ML (LOVENOX) SYR SC SCH (17:14)
--- NOTE | 2020-03-06 20:29 | NUR ---
contacted Dr Glaser regarding patients fsbs [id number]. Per Dr Glaser give 4units Novolog, and increase levemir to 12 units and give a protein snack. TORBV
[2020-03-06 20:58] VITALS: BP 155/76
[2020-03-06] MEDS: TAMSULOSIN 0.4 MG (FLOMAX) CAP PO SCH (21:30)
[2020-03-06] MEDS: LORATADINE (CLARITIN) 10 MG TAB PO SCH (21:30)
[2020-03-06] MEDS: ALLOPURINOL 300 MG (ZYLOPRIM) TAB PO SCH (21:31)
[2020-03-06] MEDS: MELATONIN 3 MG TABLET PO SCH (21:31)
[2020-03-06] MEDS: CARVEDILOL 6.25 MG (COREG) TAB PO SCH (21:31)
[2020-03-06] MEDS: ADVAIR HFA 115/21 MCG INHALER 8 GM IH SCH (23:07)
[2020-03-06 23:37] VITALS: BP 119/81
[2020-03-07 04:00] VITALS: BP 170/84
[2020-03-07] MEDS: inSUlin ASPART (NovoLOG) 1 UNIT/0.01 ML (CHARGE PER UNIT) SC SCH ×7 (06:48→20:47)
[2020-03-07] MEDS: LEVOTHYROXINE 150 MCG (LEVOTHROID) TAB PO SCH (06:50)
[2020-03-07 08:00] VITALS: BP 186/90
[2020-03-07 09:00] LABS: HEMOGLOBIN 13.6 g/dL (13.3-17.7); MEAN PLATELET VOLUME 11.9 fL (9.0-12.2); WHITE BLOOD COUNT 19.1 10^3/uL (4.3-11.0)
[2020-03-07] MEDS ORDERED: dexAMETHasone INJECTION 10 MG in NS (IVPB) 50 ML IV SCH (09:00)
[2020-03-07] MEDS: SODIUM BICARBONATE 650 MG TABLET (NON-FORMULARY) PO SCH ×3 (09:05→17:34)
[2020-03-07] MEDS: FLUTICASONE NASAL SPRAY (FLONASE) 16 GM BTL NS SCH (09:06)
[2020-03-07] MEDS: CARVEDILOL 6.25 MG (COREG) TAB PO SCH ×2 (09:07→20:47)
[2020-03-07] MEDS: PANTOPRAZOLE 40 MG (PROTONIX) TAB PO SCH (09:07)
[2020-03-07] MEDS: amLODIPine 5 MG (NORVASC) TAB PO SCH (09:07)
[2020-03-07 09:22] LABS: CALCIUM 7.9 MG/DL (8.5-10.1); CREATININE SERUM 1.53 MG/DL (0.60-1.30)
[2020-03-07] MEDS: RT-ALBUTEROL INHALER HFA (VENTOLIN HFA) 18 GM IH SCH ×3 (09:57→19:50)
[2020-03-07] MEDS: ADVAIR HFA 115/21 MCG INHALER 8 GM IH SCH ×2 (10:01→19:50)
--- NOTE | 2020-03-07 11:04 | Progress Note - Hospitalist ---
Subjective HPI/CC On Admission Date Seen by Provider: Mar 07, 2020 Time Seen by Provider: 11:00 Subjective/Events-last exam Pt reports feeling really well. Needed incrase in Vapotherm settings yesterday though. No new complaints. happy to have books to read now. Objective Exam Vital Signs Vital Signs Date Time Temp Pulse Resp B/P (MAP) Pulse Ox O2 Delivery O2 Flow Rate FiO2 03/07/20 10:01 98 High Flow N/C 35.00 85 03/07/20 08:00 36.2 90 22 186/90 (122) Capillary Refill : Less Than 3 SecondsLess Than 3 Seconds General Appearance: No Apparent Distress, WD/WN Respiratory: Lungs Clear, No Accessory Muscle Use, Other (on vapotherm) Neurologic/Psychiatric: Alert, Oriented x3 Results/Procedures Lab Laboratory Tests 03/07/20 08:50 Patient resulted labs reviewed. Assessment/Plan Assessment and Plan Assess & Plan/Chief Complaint Acute respiratory failure due to COVID-19 Influenza B PNA Continue Vapotherm, wean as able Continue [id number] s/p Remdesivir 5-day course s/p 2 unit convalescent plasma Completed Tamiflu Continue Rocephin CKD 3b Baseline ~1.5 Cr down to 1.95 this AM T2DM Steroid induced hyperglycemia Levemir Novolog with meals SSI Labile blood sugars, monitor closely BPH Hypothyroidism Continue home meds DVT/GI Prophylaxis: Lovenox/PPI ELVIA on CKD , resolved Clinical Quality Measures DVT/VTE Risk/Contraindication: Risk Factor Score Per Nursin SHILPA LÓPEZ MD Mar 07, 2020 11:04
[2020-03-07 12:00] VITALS: BP 156/74
--- NOTE | 2020-03-07 12:50 | Physical Therapy Daily Note ---
PT Daily Note-Current Subjective Patient is up in recliner on Vapotherm 35L/85%. Agrees to PT. He reports he is up independently bed to recliner without difficulty. Mental Status Patient Orientation: Normal For Age Attachments: Oxygen (Vapotherm 35L85%) Transfers SCALE: Activities may be completed with or without assistive devices. 5-Spgndvqmph-ynvgjxx completes the activity by him/herself with no assistance from a helper. 5-Set-up or Clean-up Assistance-helper sets up or cleans up; patient completes activity. [place] assists only prior to or following the activity. 4-Supervision or Touching Assistance-helper provides verbal cues and/or touching/steadying and/or contact guard assistance as patient completes activity. Assistance may be provided throughout the activity or intermittently. 3-Partial/Moderate Assistance-helper does LESS THAN HALF the effort. [place]vier lifts, holds or supports trunk or limbs, but provides less than half the effort. 2-Substantial/Maximal Assistance-helper does MORE THAN HALF the effort. [place] lifts or holds trunk or limbs and provides more than half the effort. 0-Iiskmzwqt-lsvjok does ALL the effort. Patient does none of the effort to complete the activity. Or, the assistance of 2 or more helpers is required for the patient to complete the activity. If activity was not attempted, code reason: 7-Patient Refused. 9-Not Applicable-not attempted and the patient did not perform the activity before the current illness, exacerbation or injury. 10-Not Attempted due to Environmental Limitations-(lack of equipment, weather restraints, etc.). 88-Not Attempted due to Medical Conditions or Safety Concerns. Sit to Stand (QC): 6 Weight Bearing Right Lower Extremity: Right Weight Bearing/Tolerated Left Lower Extremity: Left Weight Bearing/Tolerated Exercises Standing: Marching Standing Reps: 10 (3 sets) Assessment Patient's SAO2 at rest is 94% on Vapotherm settings. With exercise, patient decreased to 78% and required 4 minutes each time to recover to 90%. Patient does demonstrate increase SOA and fatigue with minimal activity. RN notified of situation. PT Director Metabolism Goals Retirement Goals PT Director Metabolism Goals Time Frame: Mar 22, 2020 Roll Left & Right (QC): 6 Sit to Lying (QC): 6 Lying-Sitting on Side/Bed(QC): 6 Sit to Stand (QC): 6 Chair/Npw-at-Dxebk Xfer(QC): 6 Toilet Transfer (QC): 6 Car Transfer (QC): 6 Does the Patient Walk: Yes Walk 10 feet (QC): 6 Walk 50ft with 2 Turns (QC): 6 Walk 150 ft (QC): 6 Walking 10ft on Uneven Surface: 6 1 Step (curb) (QC): 6 4 Steps (QC): 6 12 Steps (QC): 9 Picking up an Object (QC): 6 Does the Pt use WC or Scooter?: No Wheel 50 feet with 2 turns (QC: 9 Wheel 150 feet: 9 PT Plan Treatment/Plan Treatment Plan: Continue Plan of Care Treatment Plan: Education, Functional Activity Yfn, Functional Strength, Gait, Safety, Therapeutic Exercise Treatment Duration: Mar 22, 2020 Frequency: 6 times per week Estimated Hrs Per Day: .25 hour per day Patient and/or Family Agrees t: Yes Time/GCodes Time In: 1053 Time Out: 1116 Total Billed Treatment Time: 23 Total Billed Treatment 1 visit EX x 2 23min DESIREE SMITH PT Mar 07, 2020 12:50
[2020-03-07 16:22] VITALS: BP 152/78
[2020-03-07] MEDS: ENOXAPARIN 40 MG/0.4 ML (LOVENOX) SYR SC SCH (17:33)
[2020-03-07 20:29] VITALS: BP 150/71
[2020-03-07] MEDS: TAMSULOSIN 0.4 MG (FLOMAX) CAP PO SCH (20:46)
[2020-03-07] MEDS: ALLOPURINOL 300 MG (ZYLOPRIM) TAB PO SCH (20:46)
[2020-03-07] MEDS: MELATONIN 3 MG TABLET PO SCH (20:47)
[2020-03-07] MEDS: LORATADINE (CLARITIN) 10 MG TAB PO SCH (20:47)
[2020-03-07 23:54] VITALS: BP 167/76
--- NOTE | 2020-03-08 03:00 | NUR ---
0300- PT CALLED THIS RN INTO ROOM WITH COMPLAINTS OF SWEATING. PT DRENCHED IN SWEAT WITHOUT FEVER. 0305- CHECKED PT'S BLOOD SUGAR IS 54. HYPOGLYCEMIC PROTOCOL FOLLOWED. PT GIVEN 8 OZ OF ORANGE JUICE, OLIVIER CRACKERS, AND PEANUT BUTTER. GOWN AND BEDDING CHANGED. WILL RECHECK BLOOD SUGAR AND MONITOR PT.
[2020-03-08] MEDS: RT-ALBUTEROL INHALER HFA (VENTOLIN HFA) 18 GM IH SCH ×4 (03:11→20:33)
[2020-03-08 04:57] VITALS: BP 149/74
[2020-03-08] MEDS: LEVOTHYROXINE 150 MCG (LEVOTHROID) TAB PO SCH (05:12)
[2020-03-08] MEDS: inSUlin ASPART (NovoLOG) 1 UNIT/0.01 ML (CHARGE PER UNIT) SC SCH ×7 (05:12→22:23)
[2020-03-08 07:58] LABS: HEMOGLOBIN 14.3 g/dL (13.3-17.7)
[2020-03-08 08:07] VITALS: BP 132/80
[2020-03-08 08:16] LABS: CALCIUM 7.9 MG/DL (8.5-10.1); CREATININE SERUM 1.29 MG/DL (0.60-1.30); POTASSIUM 4.4 MMOL/L (3.6-5.0)
[2020-03-08] MEDS: SODIUM BICARBONATE 650 MG TABLET (NON-FORMULARY) PO SCH ×3 (08:19→19:48)
[2020-03-08] MEDS: PANTOPRAZOLE 40 MG (PROTONIX) TAB PO SCH (08:19)
[2020-03-08] MEDS: amLODIPine 5 MG (NORVASC) TAB PO SCH (08:19)
[2020-03-08] MEDS: FLUTICASONE NASAL SPRAY (FLONASE) 16 GM BTL NS SCH (08:22)
[2020-03-08] MEDS: ADVAIR HFA 115/21 MCG INHALER 8 GM IH SCH ×2 (08:38→20:32)
[2020-03-08] MEDS: CARVEDILOL 6.25 MG (COREG) TAB PO SCH ×2 (09:23→22:23)
--- NOTE | 2020-03-08 11:27 | Physical Therapy Daily Note ---
PT Daily Note-Current Subjective Pt presents in R sidelying upon arrival to room, reluctantly agreeable to therapy states "I am so cold, and weak, I dont want to even try to get out of bed." With maximal encouragement pt agrees to bed exercises. Appearance Following session, pt supine in bed with call light and tray within reach. All needs met at this time. Mental Status Patient Orientation: Person Attachments: Oxygen (vapotherm ) Transfers SCALE: Activities may be completed with or without assistive devices. 0-Mqmmkgehcl-yuqooaf completes the activity by him/herself with no assistance from a helper. 5-Set-up or Clean-up Assistance-helper sets up or cleans up; patient completes activity. Jean assists only prior to or following the activity. 4-Supervision or Touching Assistance-helper provides verbal cues and/or touching/steadying and/or contact guard assistance as patient completes activity. Assistance may be provided throughout the activity or intermittently. 3-Partial/Moderate Assistance-helper does LESS THAN HALF the effort. Jean lifts, holds or supports trunk or limbs, but provides less than half the effort. 2-Substantial/Maximal Assistance-helper does MORE THAN HALF the effort. Jean lifts or holds trunk or limbs and provides more than half the effort. 4-Bfopmxqfz-glpldp does ALL the effort. Patient does none of the effort to complete the activity. Or, the assistance of 2 or more helpers is required for the patient to complete the activity. If activity was not attempted, code reason: 7-Patient Refused. 9-Not Applicable-not attempted and the patient did not perform the activity before the current illness, exacerbation or injury. 10-Not Attempted due to Environmental Limitations-(lack of equipment, weather restraints, etc.). 88-Not Attempted due to Medical Conditions or Safety Concerns. Roll Left & Right (QC): 6 Weight Bearing Right Lower Extremity: Right Weight Bearing/Tolerated Left Lower Extremity: Left Weight Bearing/Tolerated Exercises Supine Ex: Bridging, Ankle pumps, Heel Slides, Short Arc Quads, Straight leg raise, Hip abd/add Supine Reps: 15 Treatments Pt reluctantly agrees to complete bed exercises this date, pt requires multiple rest breaks as he states that he is "just tired." Pt SOB during session. Following bed exercises, pt repositioned in bed with Min A. Assessment Current Status: Fair Progress Pt with decreased activity tolerance this date, will continue to increase standing exercises as able PT Line Cleaner Goals Line Cleaner Goals PT Line Cleaner Goals Time Frame: Mar 22, 2020 Roll Left & Right (QC): 6 Sit to Lying (QC): 6 Lying-Sitting on Side/Bed(QC): 6 Sit to Stand (QC): 6 Chair/Njo-gx-Xzavo Xfer(QC): 6 Toilet Transfer (QC): 6 Car Transfer (QC): 6 Does the Patient Walk: Yes Walk 10 feet (QC): 6 Walk 50ft with 2 Turns (QC): 6 Walk 150 ft (QC): 6 Walking 10ft on Uneven Surface: 6 1 Step (curb) (QC): 6 4 Steps (QC): 6 12 Steps (QC): 9 Picking up an Object (QC): 6 Does the Pt use WC or Scooter?: No Wheel 50 feet with 2 turns (QC: 9 Wheel 150 feet: 9 PT Plan Problem List Problem List: Activity Tolerance, Functional Strength, Safety, Balance, Gait, Transfer, Bed Mobility, ROM Treatment/Plan Treatment Plan: Continue Plan of Care Treatment Plan: Education, Functional Activity Yfn, Functional Strength, Gait, Safety, Therapeutic Exercise Treatment Duration: Mar 22, 2020 Frequency: 6 times per week Estimated Hrs Per Day: .25 hour per day Patient and/or Family Agrees t: Yes Time/GCodes Time In: 955 Time Out: 1018 Total Billed Treatment Time: 23 Total Billed Treatment 1 visit EX (15') FA (8') GLENDY CANDELARIO PT Mar 08, 2020 11:27
[2020-03-08 12:00] VITALS: BP 132/80
--- NOTE | 2020-03-08 12:54 | Progress Note - Hospitalist ---
Subjective HPI/CC On Admission Date Seen by Provider: Mar 08, 2020 Time Seen by Provider: 12:52 Subjective/Events-last exam Pt reports feeling well. Vapotherm settings are being weaned down. No new concerns. Objective Exam Vital Signs Vital Signs Date Time Temp Pulse Resp B/P (MAP) Pulse Ox O2 Delivery O2 Flow Rate FiO2 03/08/20 12:30 102 03/08/20 12:00 35.8 20 132/80 (97) 93 Vapotherm 30.00 80.00 03/08/20 09:00 80 Capillary Refill : Less Than 3 SecondsLess Than 3 Seconds General Appearance: No Apparent Distress, WD/WN Respiratory: Lungs Clear, No Accessory Muscle Use, Other (on vapotherm) Cardiovascular: Regular Rate, Rhythm, No Murmur Neurologic/Psychiatric: Alert, Oriented x3 Results/Procedures Lab Laboratory Tests 03/08/20 07:10 Patient resulted labs reviewed. Assessment/Plan Assessment and Plan Assess & Plan/Chief Complaint Acute respiratory failure due to COVID-19 Influenza B PNA Continue Vapotherm, wean as able Continue [id number] IV, hopefully if he continues to improve will switch to oral soon s/p Remdesivir 5-day course s/p 2 unit convalescent plasma Completed Tamiflu and Rocephin CKD 3b Baseline ~1.5 Cr down to 1.29 today T2DM Steroid induced hyperglycemia Levemir decreased again today because of hypoglycemia Novolog with meals SSI Labile blood sugars, monitor closely BPH Hypothyroidism Continue home meds DVT/GI Prophylaxis: Lovenox/PPI ELVIA on CKD , resolved Clinical Quality Measures DVT/VTE Risk/Contraindication: Risk Factor Score Per Nursin SHILPA LÓPEZ MD Mar 08, 2020 12:54
[2020-03-08 16:26] VITALS: BP 135/87
--- NOTE | 2020-03-08 17:15 | NUR ---
PTS B/S IS 472, DR LÓPEZ NOTIFIED AND SHE SAID TO GIVE 17 U, HOLD 8 UNITS SINCE PT WILL REFUSE IT AND HE CRASHES EASILY THRU THE NIGHT.
[2020-03-08] MEDS: ENOXAPARIN 40 MG/0.4 ML (LOVENOX) SYR SC SCH (19:48)
[2020-03-08 21:00] VITALS: BP 166/88
[2020-03-08] MEDS: LORATADINE (CLARITIN) 10 MG TAB PO SCH (22:22)
[2020-03-08] MEDS: TAMSULOSIN 0.4 MG (FLOMAX) CAP PO SCH (22:23)
[2020-03-08] MEDS: ALLOPURINOL 300 MG (ZYLOPRIM) TAB PO SCH (22:23)
[2020-03-08] MEDS: MELATONIN 3 MG TABLET PO SCH (22:23)
[2020-03-09] VITALS (7 sets, daily range): BP systolic 119–181; BP diastolic 64–85
[2020-03-09] MEDS: RT-ALBUTEROL INHALER HFA (VENTOLIN HFA) 18 GM IH SCH ×4 (03:37→19:03)
[2020-03-09] MEDS: inSUlin ASPART (NovoLOG) 1 UNIT/0.01 ML (CHARGE PER UNIT) SC SCH ×7 (05:55→21:40)
[2020-03-09] MEDS: LEVOTHYROXINE 150 MCG (LEVOTHROID) TAB PO SCH (05:59)
[2020-03-09 06:49] LABS: HEMOGLOBIN 13.3 g/dL (13.3-17.7); MEAN PLATELET VOLUME 12.4 fL (9.0-12.2); WHITE BLOOD COUNT 18.1 10^3/uL (4.3-11.0)
[2020-03-09 07:08] LABS: CREATININE SERUM 1.31 MG/DL (0.60-1.30); POTASSIUM 4.2 MMOL/L (3.6-5.0)
[2020-03-09] MEDS: SODIUM BICARBONATE 650 MG TABLET (NON-FORMULARY) PO SCH ×3 (09:14→17:05)
[2020-03-09] MEDS: amLODIPine 5 MG (NORVASC) TAB PO SCH (09:14)
[2020-03-09] MEDS: CARVEDILOL 6.25 MG (COREG) TAB PO SCH ×2 (09:14→21:41)
[2020-03-09] MEDS: PANTOPRAZOLE 40 MG (PROTONIX) TAB PO SCH (09:14)
[2020-03-09] MEDS: FLUTICASONE NASAL SPRAY (FLONASE) 16 GM BTL NS SCH (09:15)
[2020-03-09] MEDS: ADVAIR HFA 115/21 MCG INHALER 8 GM IH SCH ×2 (10:27→19:04)
[2020-03-09] MEDS: ENOXAPARIN 40 MG/0.4 ML (LOVENOX) SYR SC SCH (17:05)
[2020-03-09] MEDS: LORATADINE (CLARITIN) 10 MG TAB PO SCH (21:40)
[2020-03-09] MEDS: TAMSULOSIN 0.4 MG (FLOMAX) CAP PO SCH (21:41)
[2020-03-09] MEDS: ALLOPURINOL 300 MG (ZYLOPRIM) TAB PO SCH (21:41)
[2020-03-09] MEDS: MELATONIN 3 MG TABLET PO SCH (21:41)
[2020-03-10] MEDS: RT-ALBUTEROL INHALER HFA (VENTOLIN HFA) 18 GM IH SCH ×3 (03:12→15:08)
[2020-03-10 04:32] VITALS: BP 155/80
[2020-03-10] MEDS: inSUlin ASPART (NovoLOG) 1 UNIT/0.01 ML (CHARGE PER UNIT) SC SCH ×4 (05:54→13:35)
[2020-03-10] MEDS: LEVOTHYROXINE 150 MCG (LEVOTHROID) TAB PO SCH (05:55)
[2020-03-10 06:30] LABS: HEMOGLOBIN 13.5 g/dL (13.3-17.7); MEAN PLATELET VOLUME 11.8 fL (9.0-12.2); WHITE BLOOD COUNT 20.3 10^3/uL (4.3-11.0)
[2020-03-10 06:31] LABS: POTASSIUM 4.5 MMOL/L (3.6-5.0)
[2020-03-10 06:32] LABS: CALCIUM 8.1 MG/DL (8.5-10.1)
[2020-03-10 06:37] LABS: CREATININE SERUM 1.44 MG/DL (0.60-1.30)
[2020-03-10] MEDS: ADVAIR HFA 115/21 MCG INHALER 8 GM IH SCH (07:25)
[2020-03-10 08:02] VITALS: BP 141/88
[2020-03-10] MEDS: CARVEDILOL 6.25 MG (COREG) TAB PO SCH (09:00)
[2020-03-10] MEDS: PANTOPRAZOLE 40 MG (PROTONIX) TAB PO SCH (09:00)
[2020-03-10] MEDS: amLODIPine 5 MG (NORVASC) TAB PO SCH (09:00)
[2020-03-10] MEDS: SODIUM BICARBONATE 650 MG TABLET (NON-FORMULARY) PO SCH ×2 (09:11→12:07)
[2020-03-10] MEDS: FLUTICASONE NASAL SPRAY (FLONASE) 16 GM BTL NS SCH (09:12)
[2020-03-10 11:46] VITALS: BP 158/72
--- NOTE | 2020-03-10 14:40 | Physical Therapy Daily Note ---
PT Daily Note-Current Subjective Patient in bed pre tx, agrees to PT only with max encouragement. Patient is very SOB just laying in bed, he refuses to get out of bed or sit on the side of the bed. Patient states he has been in the recliner for hours and doesn't want to get into it. Patient agrees to exercises in bed and help to scoot up in bed. Proper PPE donned before entering room. Appearance Patient in bed post tx with nurse call, phone, tray, all needs met. Mental Status Patient Orientation: Person, Place, Situation Attachments: Oxygen Transfers SCALE: Activities may be completed with or without assistive devices. 1-Sckalgqkkw-tpaqefj completes the activity by him/herself with no assistance from a helper. 5-Set-up or Clean-up Assistance-helper sets up or cleans up; patient completes activity. [place] assists only prior to or following the activity. 4-Supervision or Touching Assistance-helper provides verbal cues and/or touching/steadying and/or contact guard assistance as patient completes activity. Assistance may be provided throughout the activity or intermittently. 3-Partial/Moderate Assistance-helper does LESS THAN HALF the effort. [place] lifts, holds or supports trunk or limbs, but provides less than half the effort. 2-Substantial/Maximal Assistance-helper does MORE THAN HALF the effort. [place] lifts or holds trunk or limbs and provides more than half the effort. 2-Zcqefgicr-onzxqp does ALL the effort. Patient does none of the effort to complete the activity. Or, the assistance of 2 or more helpers is required for the patient to complete the activity. If activity was not attempted, code reason: 7-Patient Refused. 9-Not Applicable-not attempted and the patient did not perform the activity before the current illness, exacerbation or injury. 10-Not Attempted due to Environmental Limitations-(lack of equipment, weather restraints, etc.). 88-Not Attempted due to Medical Conditions or Safety Concerns. min assist to scoot up in bed twice Weight Bearing Right Lower Extremity: Right Weight Bearing/Tolerated Left Lower Extremity: Left Weight Bearing/Tolerated Exercises Supine Ex: Ankle pumps, Quad Set, Glut sets, Heel Slides, Hip abd/add Supine Reps: 20 Treatments LE exercise Assessment Current Status: Poor Progress Patient SOB, required many short rest breaks. PT Mcfp Goals Mcfp Goals PT Mcfp Goals Time Frame: Mar 22, 2020 Roll Left & Right (QC): 6 Sit to Lying (QC): 6 Lying-Sitting on Side/Bed(QC): 6 Sit to Stand (QC): 6 Chair/Doi-zp-Jceaz Xfer(QC): 6 Toilet Transfer (QC): 6 Car Transfer (QC): 6 Does the Patient Walk: Yes Walk 10 feet (QC): 6 Walk 50ft with 2 Turns (QC): 6 Walk 150 ft (QC): 6 Walking 10ft on Uneven Surface: 6 1 Step (curb) (QC): 6 4 Steps (QC): 6 12 Steps (QC): 9 Picking up an Object (QC): 6 Does the Pt use WC or Scooter?: No Wheel 50 feet with 2 turns (QC: 9 Wheel 150 feet: 9 PT Plan Problem List Problem List: Activity Tolerance, Functional Strength, Safety, Balance, Gait, Transfer, Bed Mobility, ROM Treatment/Plan Treatment Plan: Continue Plan of Care Treatment Plan: Education, Functional Activity Yfn, Functional Strength, Gait, Safety, Therapeutic Exercise Treatment Duration: Mar 22, 2020 Frequency: 6 times per week Estimated Hrs Per Day: .25 hour per day Patient and/or Family Agrees t: Yes Safety Risks/Education Patient Education: Correct Positioning, Safety Issues Teaching Recipient: Patient Teaching Methods: Demonstration, Discussion Response to Teaching: Reinforcement Needed Time/GCodes Time In: 1358 Time Out: 1408 Total Billed Treatment Time: 10 Total Billed Treatment 1 visit EX NICOLAS ASHTON PT Mar 10, 2020 14:40
--- NOTE | 2020-03-10 16:56 | Discharge Summary ---
Discharge Summary Hospital Course Was the Problem List Reviewed?: Yes Problems/Dx: (1) Acute respiratory failure due to COVID-19 Status: Acute Hospital Course Date of Admission: Mar 06, 2020 at 12:14 Admission Diagnosis : Acute respiratory failure due to COVID-19 Family Physician/Provider: Pb Castle MD Date of Discharge: 03/10/20 Discharge Diagnosis: Acute respiratory failure due to COVID-19 Hospital Course: Quinn Faria is an 84 year old male who was previously admitted with acute respiratory failure due to COVID-19. He was treated with Decadron, Remdesivir, and convalescent plasma. He had continued significant oxygen needs and was transitioned to swing bed for oxygen weaning. His oxygen requirements increased and he was started on BiPAP. He was discharged from swing bed status and admi tted to the ICU for ongoing cares. Labs and Pending Lab Test: Laboratory Tests 03/09/20 21:08: Glucometer 334H 03/10/20 05:39: White Blood Count 20.3H, Red Blood Count 4.36, Hemoglobin 13.5, Hematocrit 40, Mean Corpuscular Volume 91, Mean Corpuscular Hemoglobin 31, Mean Corpuscular Hemoglobin Concent 34, Red Cell Distribution Width 13.1, Platelet Count 162, Mean Platelet Volume 11.8, Sodium Level 140, Potassium Level 4.5, Chloride Level 108H, Carbon Dioxide Level 25, Anion Gap 7, Blood Urea Nitrogen 40H, Creatinine 1.44H, Estimat Glomerular Filtration Rate 47, BUN/Creatinine Ratio 28, Glucose Level 191H, Calcium Level 8.1L 03/10/20 05:54: Glucometer 179H 03/10/20 10:48: Glucometer 231H 03/10/20 16:31: Glucometer 177H Home Meds Active Reported Docusate Sodium 100 Mg Capsule 100 Mg PO BID PRN Iron (Ferrous Sulfate) 325 Mg Tablet 325 Mg PO DAILY Synthroid (Levothyroxine Sodium) 150 Mcg Tablet 150 Mcg PO DAILY Doxycycline Hyclate 100 Mg Capsule 100 Mg PO BID FILLED 02-22-2020 #20/10 DAY SUPPLY Prednisone 10 Mg Tab Mg PO DAILY FILLED 02-22-2020 #30 TAPER DOSE: 5 TABS DAILY X 2 DAYS 4 TABS DAILY X 2 DAYS THEN DECREASE BY 1 TAB EVERY OTHER DAY UNTIL ALL TAKEN Benzonatate 100 Mg Capsule 100-200 Mg PO TID PRN Trulicity (Dulaglutide) 0.75 Mg/0.5 Ml Pen.injctr 0.75 Mg SQ TUESDAY Flomax (Tamsulosin HCl) 0.4 Mg Cap 0.4 Mg PO HS Linzess (Linaclotide) 290 Mcg Capsule 290 Mcg PO DAILY Meloxicam 15 Mg Tablet 7.5 Mg PO DAILY PRN TAKES 1/2 OF A 15MG TO EQUAL 7.5MG Amlodipine Besylate 10 Mg Tablet 10 Mg PO DAILY Glipizide 10 Mg Tablet 10 Mg PO BID Levocetirizine Dihydrochloride 5 Mg Tablet 5 Mg PO HS Allopurinol 300 Mg Tablet 300 Mg PO HS Assessment/Pt Instructions Patient transferred to ICU Discharge Planning: <30 minutes discharge planning Discharge Instructions Activity as Tolerated: Yes Discharge Physical Examination Vital Signs Vital Signs Date Time Temp Pulse Resp B/P (MAP) Pulse Ox O2 Delivery O2 Flow Rate FiO2 03/10/20 15:08 92 30 96 100.00 03/10/20 11:46 36.2 158/72 (100) Vapotherm 03/10/20 09:00 100 Allergies: Coded Allergies: No Known Drug Allergies (Verified , 07/29/09) Discharge Summary Date of Admission Mar 06, 2020 at 12:14 Date of Discharge Mar 10, 2020 at 15:31 Discharge Date: Mar 10, 2020 Discharge Time: 15:31 Admission Diagnosis Acute respiratory failure due to COVID-19 Discharge Diagnosis (1) Acute respiratory failure due to COVID-19 Status: Acute Clinical Quality Measures DVT/VTE Risk/Contraindication: Risk Factor Score Per Nursin MAIA THOMSON MD Mar 10, 2020 16:56
== END 2020-03-10 15:31 | disposition short-term general hospital (02) | DRG 177 ==
LOC: 4TH 12:14
PROVIDERS: ADMIT Family Medicine; ATTEND Internal Medicine
PROC: 5A09357 Assistance with Respiratory Ventilation, Less than 24 Consecutive Hours, Continuous Positive Airway Pressure (ICD-10-PCS; principal; 2020-03-10)
DX: U07.1 COVID-19 (principal); J96.00 Acute respiratory failure, unspecified whether with hypoxia or hypercapnia; J10.08 Influenza due to other identified influenza virus with other specified pneumonia; J12.89 Other viral pneumonia; N18.32 Chronic kidney disease, stage 3b; E11.65 Type 2 diabetes mellitus with hyperglycemia; T38.0X5A Adverse effect of glucocorticoids and synthetic analogues, initial encounter; E03.9 Hypothyroidism, unspecified; N40.0 Benign prostatic hyperplasia without lower urinary tract symptoms
CPT/HCPCS: 36415; 80048; 82962; 85027; 94640; 94660; 94760

== ENCOUNTER 2020-03-10 14:47 | Inpatient (IN) | payer MEDICARE, OTHER ==
[~2020-03-10] VITALS: Ht 167.5 cm; Wt 104.2 kg
[~2020-03-10 14:47] MED LIST changes: +MIDAZOLAM 5 MG/5 ML (VERSED) VIAL IJ ONE; +ROCURONIUM 10 MG/ML 5 ML SYRINGE IV ONE; +fentaNYL INJECTION 100 MCG/2 ML AMP IV ONE
[2020-03-10] MEDS ORDERED: ACETAMINOPHEN 650 MG SUPP (TYLENOL) PR PRN (15:45)
[2020-03-10] MEDS ORDERED: IBUPROFEN 600 MG (MOTRIN) TAB PO PRN (15:45)
[2020-03-10] MEDS ORDERED: hydrALAZINE (APESOLINE) 20 MG/ML VIAL IV PRN (15:45)
[2020-03-10] MEDS ORDERED: ACETAMINOPHEN 325 MG TABLET PO PRN (15:45)
[2020-03-10 16:26] VITALS: BP 160/82
[2020-03-10] MEDS ORDERED: ENOXAPARIN 40 MG/0.4 ML (LOVENOX) SYR SC SCH (17:00)
[2020-03-10] MEDS ORDERED: CATHETER FLUSH 10 ML SYR IV PRN (18:00)
[2020-03-10] MEDS: SODIUM BICARBONATE 650 MG TABLET (NON-FORMULARY) PO SCH (18:15)
[2020-03-10] MEDS: inSUlin ASPART (NovoLOG) 1 UNIT/0.01 ML (CHARGE PER UNIT) SC SCH ×2 (18:15→20:11)
--- NOTE | 2020-03-10 20:00 | NUR ---
Patient states he does not want to wear the bipap mask. Explained to him the need for mask and offered to give him medication to help relax in order to tolerate the mask. "I don't want to be knocked out". Informed him that it won't knock him out. Patient adamant about removing bipap mask and placing oxygen on. Vapotherm placed at 40L and 100%. Patient sating 88-91%. No signs of respiratory distress noted. Attempt to discuss if need bipap and use medications to help relax. At this time he wants to use the vapotherm. Will continue to evaluate. EICU physician aware of patient's request.
[2020-03-10] MEDS: CARVEDILOL 6.25 MG (COREG) TAB PO SCH (20:03)
[2020-03-10] MEDS: MELATONIN 3 MG TABLET PO SCH (20:04)
[2020-03-10] MEDS: TAMSULOSIN 0.4 MG (FLOMAX) CAP PO SCH (20:04)
[2020-03-10] MEDS: LORATADINE (CLARITIN) 10 MG TAB PO SCH (20:05)
[2020-03-10] MEDS: ALLOPURINOL 300 MG (ZYLOPRIM) TAB PO SCH (20:05)
[2020-03-10] MEDS: ENOXAPARIN 100 MG/1 ML (LOVENOX) SYR SC SCH (20:05)
[2020-03-10] MEDS: CATHETER FLUSH 10 ML SYR IV SCH (22:00)
[2020-03-10] MEDS: RT-ALBUTEROL INHALER HFA (VENTOLIN HFA) 18 GM IH SCH (22:11)
[2020-03-11 02:09] LABS: BASOPHILS % (AUTO) 0 % (0-10); EOSINOPHILS % (AUTO) 0 % (0-10); LYMPHOCYTES % (AUTO) 2 % (12-44); MEAN PLATELET VOLUME 11.8 fL (9.0-12.2); PLATELET COUNT 134 10^3/uL (130-400)
[2020-03-11 02:11] LABS: HEMATOCRIT 37 % (40-54); HEMOGLOBIN 12.6 g/dL (13.3-17.7); LYMPHOCYTES # (AUTO) 0.3 10^3/uL (1.0-4.0); MEAN CORPUSCULAR HEMOGLOBIN 31 pg (25-34); MEAN CORPUSCULAR HGB CONC 34 g/dL (32-36); MEAN CORPUSCULAR VOLUME 93 fL (80-99); MONOCYTES # (AUTO) 0.4 10^3/uL (0.0-1.0); MONOCYTES % (AUTO) 2 % (0-12); NEUTROPHILS # (AUTO) 18.2 10^3/uL (1.8-7.8); NEUTROPHILS % (AUTO) 95 % (42-75); WHITE BLOOD COUNT 19.1 10^3/uL (4.3-11.0)
[2020-03-11 02:28] LABS: CALCIUM 7.7 MG/DL (8.5-10.1); CREATININE SERUM 1.53 MG/DL (0.60-1.30); MAGNESIUM 2.1 MG/DL (1.6-2.4); PHOSPHORUS 3.6 MG/DL (2.3-4.7); POTASSIUM 4.7 MMOL/L (3.6-5.0)
[2020-03-11] MEDS: RT-ALBUTEROL INHALER HFA (VENTOLIN HFA) 18 GM IH SCH ×6 (03:35→21:03)
--- NOTE | 2020-03-11 04:45 | NUR ---
Patient agreeable to wearing bipap mask, as he has dyspnea while talking. After 45 minutes of wearing the bipap patient is again adamant about removing mask and placing back on vapotherm. Offered medication to help relax, patient refused. Vapomask placed and patient agreeable to turning on side to help with oxygenation. Addendum: 03/11/20 at 0804 by LIGIA GUIDRY RN Vapotherm placed
[2020-03-11] MEDS: KCL 20 MEQ TAB (K-DUR) PO SCH (05:45)
[2020-03-11] MEDS: POTASSIUM CL 10MEQ/50ML IVPB 50 ML IV SCH (05:45)
[2020-03-11] MEDS: MAGNESIUM 1 GM/100 ML IVPB 100 ML IV SCH (05:45)
[2020-03-11] MEDS: CATHETER FLUSH 10 ML SYR IV SCH ×3 (06:01→20:56)
[2020-03-11] MEDS: ENOXAPARIN 100 MG/1 ML (LOVENOX) SYR SC SCH ×2 (06:01→16:59)
[2020-03-11] MEDS: inSUlin ASPART (NovoLOG) 1 UNIT/0.01 ML (CHARGE PER UNIT) SC SCH ×4 (06:01→23:57)
[2020-03-11] MEDS: LEVOTHYROXINE 150 MCG (LEVOTHROID) TAB PO SCH (06:01)
--- NOTE | 2020-03-11 06:39 | Pulmonary Consultation ---
History of Present Illness History of Present Illness Date Seen by Provider: Mar 11, 2020 Time Seen by Provider: 06:34 Date of Admission Allergies and Home Medications Allergies Coded Allergies: No Known Drug Allergies (Verified , 07/29/09) Home Medications Allopurinol 300 Mg Tablet, 300 MG PO HS, (Reported) Amlodipine Besylate 10 Mg Tablet, 10 MG PO DAILY, (Reported) Benzonatate 100 Mg Capsule, 100-200 MG PO TID PRN for COUGH, (Reported) Docusate Sodium 100 Mg Capsule, 100 MG PO BID PRN for CONSTIPATION-1ST LINE, (Reported) Doxycycline Hyclate 100 Mg Capsule, 100 MG PO BID, (Reported) FILLED 02-22-2020 #20/10 DAY SUPPLY Dulaglutide 0.75 Mg/0.5 Ml Pen.injctr, 0.75 MG SQ TUESDAY, (Reported) Ferrous Sulfate 325 Mg Tablet, 325 MG PO DAILY, (Reported) Glipizide 10 Mg Tablet, 10 MG PO BID, (Reported) Levocetirizine Dihydrochloride 5 Mg Tablet, 5 MG PO HS, (Reported) Levothyroxine Sodium 150 Mcg Tablet, 150 MCG PO DAILY, (Reported) Linaclotide 290 Mcg Capsule, 290 MCG PO DAILY, (Reported) Meloxicam 15 Mg Tablet, 7.5 MG PO DAILY PRN for PAIN-MILD (1-4), (Reported) TAKES 1/2 OF A 15MG TO EQUAL 7.5MG Prednisone 10 Mg Tab, MG PO DAILY, (Reported) FILLED 02-22-2020 #30 TAPER DOSE: 5 TABS DAILY X 2 DAYS 4 TABS DAILY X 2 DAYS THEN DECREASE BY 1 TAB EVERY OTHER DAY UNTIL ALL TAKEN Tamsulosin HCl 0.4 Mg Cap, 0.4 MG PO HS, (Reported) Past Xhtjxis-Mnjags-Ximmtx Hx Patient Social History Alcohol Use: Denies Use Recreational Drug Use: No Recent Foreign Travel: No Contact w/Someone Who Travel: No Recent Infectious Disease Expo: Yes Recent Hopitalizations: No Immunizations Up To Date Tetanus Booster (TDap): Unknown PED Vaccines UTD: No Date of Pneumonia Vaccine: Feb 14, 2020 Date of Influenza Vaccine: Feb 14, 2020 Seasonal Allergies Seasonal Allergies: Yes Past Medical History Surgeries: Yes Respiratory: No Currently Using CPAP: No Currently Using BIPAP: No Cardiac: Yes Neurological: No Reproductive Disorders: No Sexually Transmitted Disease: No HIV/AIDS: No Genitourinary: No Gastrointestinal: No (colon 1/3 removed surg) Polyps Musculoskeletal: Yes Arthritis Endocrine: Yes Hypothyroidsim, Diabetes, Non-Insulin dep Are Your Blood Sugars Over 250: No HEENT: No Cataract Cancer: No Psychosocial: No Integumentary: No Psoriasis Blood Disorders: No Adverse Reaction/Blood Tranf: No Family Medical History Cancer 03 FATHER Family history: Diabetes mellitus 03 MOTHER 09 BROTHER Hereditary disease SON (ELEONORA LAKHANI) No Family History of: Abdominal aortic aneurysm Congestive heart failure Family history: Allergy Family history: Breast disease Family history: Cardiovascular disease Family history: Gastrointestinal disease Family history: Thyroid disorder History of - respiratory disease Myocardial infarction Seizure disorder Review of Systems Time Seen by Provider: 06:41 Sepsis Event Evaluation Height, Weight, BMI Height: '" Weight: 222lbs. oz. 100.421691pi; 35.46 BMI Method: Exam Exam Vital Signs Date Time Temp Pulse Resp B/P (MAP) Pulse Ox O2 Delivery O2 Flow Rate FiO2 03/11/20 05:00 93 28 117/79 82 Vapotherm 40.00 100.00 03/11/20 04:30 35.7 91 NIV Bilevel 75.00 03/11/20 04:17 91 35 91 NIV Bilevel 75.00 03/11/20 04:00 91 Vapotherm 40.00 100 03/11/20 04:00 85 28 144/76 91 Vapotherm 40.00 100.00 03/11/20 03:35 87 Vapotherm 40.00 100 03/11/20 03:00 90 19 140/83 92 Vapotherm 40.00 100.00 03/11/20 02:00 82 35 139/86 88 Vapotherm 40.00 100.00 03/11/20 01:00 81 16 121/70 94 Vapotherm 40.00 100.00 03/11/20 01:00 89 Vapotherm 40.00 100.00 03/11/20 01:00 81 03/11/20 00:05 92 Vapotherm 40.00 90.00 03/11/20 00:00 36.3 97 Vapotherm 40.00 100.00 03/11/20 00:00 87 16 119/68 95 Vapotherm 40.00 100.00 03/11/20 00:00 95 Vapotherm 40.00 100 03/10/20 23:00 77 17 126/80 92 Vapotherm 40.00 100.00 03/10/20 22:13 90 Vapotherm 40.00 100 03/10/20 22:00 92 23 133/74 Vapotherm 40.00 100.00 03/10/20 21:00 91 22 150/73 89 Vapotherm 40.00 100.00 03/10/20 20:00 101 20 149/84 90 Vapotherm 40.00 100.00 03/10/20 20:00 Vapotherm 40.00 100 03/10/20 20:00 35.1 94 149/84 91 Vapotherm 40.00 100.00 03/10/20 19:30 92 NIV Bilevel 65.00 03/10/20 19:00 89 03/10/20 19:00 96 29 166/114 92 NIV Bilevel 65.00 03/10/20 18:46 NIV Bilevel 75.00 03/10/20 18:00 NIV Bilevel 90 03/10/20 17:45 96 33 142/119 95 NIV Bilevel 90.00 03/10/20 16:26 36.5 102 36 160/82 (108) 98 NIV Bilevel I & O 03/11/20 07:00 Intake Total 550 ml Output Total 1250 ml Balance -700 ml Height & Weight Height: '" Weight: 222lbs. oz. 100.569929pk; 35.46 BMI Method: Capillary Refill: Less Than 3 Seconds Results Lab Laboratory Tests 03/11/20 02:00 Assessment/Plan Assessment/Plan Acute respiratory failure -BiPAP PRN -Pt is refusing BiPAP -Currently on Vapotherm 40liters and 100% -Decadron 10mg IV daily -Check PCT and ABG Presumed PE -DDIMer is 9.25 -Continue theraputic dose Lovenox COVID-19, influenza B -s/p Tamiflu -s/p Remdesivir,CVP Pneumonia with sepsis Influenza B chronic kidney injury -Baseline ~1.5 T2DM BPH Hypothyroidism Continue home meds MARGA REYNAGA DO Mar 11, 2020 06:39
[2020-03-11 07:09] LABS: ABG BASE EXCESS 2.2 MMOL/L (-2.5-2.5); ABG OXYGEN SATURATION 81 % (94-100); ABG PCO2 29 MMHG (35-45); ABG PH 7.53 (7.37-7.43); ABG TCO2 26.7 MMOL/L (21.0-31.0)
[2020-03-11 07:20] LABS: ABG PO2 36 MMHG (79-93); ALLENS TEST YES-POS; INSPIRED O2 100%
[2020-03-11 07:21] LABS: PATIENT TEMP 33.1; VENTILATOR NO
[2020-03-11] MEDS ORDERED: PROPOFOL DRIP (ICU) 100 ML IV ONE ×2 (07:29→09:59)
--- NOTE | 2020-03-11 07:30 | NUR ---
Yesika - granddaughter updated on status change informing her that patient is agreeable to intubation and will be placed on the ventilator.
--- NOTE | 2020-03-11 07:36 | Diagnostic Imaging Report ---
INDICATION: Shortness of air, COVID positive. TECHNIQUE: Single view chest 6:58 AM. CORRELATION STUDY: 02/26/2020 FINDINGS: Heart size is enlarged appearing slightly more prominent. Vasculature also appears increased. Some of this is attributed to limited depth of inspiration but does appear to be prominent. Bilateral pulmonary infiltrates, left slightly greater than right, overall are increased and progressed from prior. IMPRESSION: 1. Cardiac enlargement along with vascular congestion overall appears more pronounced from prior. 2. Extensive bilateral pulmonary infiltrates, left greater than right favoring probable pneumonia versus edema have increased as well. Dictated by: Dictated on workstation # [id number]
[2020-03-11 07:58] VITALS: BP 112/72
--- NOTE | 2020-03-11 08:53 | Diagnostic Imaging Report ---
HISTORY: Tube placement. COMPARISON: 03/11/2020. TECHNIQUE: Frontal view of the chest. FINDINGS: The endotracheal tube is 5 cm above the bharati, slightly directed to the right. The tip of the enteric tube projects over the stomach. There are extensive airspace opacities in the lungs bilaterally with central predominance. The cardiac silhouette is normal in size. There is no pleural effusion or pneumothorax. IMPRESSION: 1. The endotracheal tube is 5 cm above the bharati. 2. Marked airspace opacities bilaterally which may be due to infection or edema. Overall aeration appears similar to the prior exam. Dictated by: Dictated on workstation # [id number]
--- NOTE | 2020-03-11 09:39 | Diagnostic Imaging Report ---
PROCEDURE: US Venous Lower Ext Skyler. TECHNIQUE: Multiple Real-time grayscale images were obtained over the lower extremities in various projections, bilaterally. Additional duplex Doppler and color Doppler images were also obtained. INDICATION: Respiratory difficulty. FINDINGS: There is no evidence of right or left lower extremity DVT. Both lower extremity deep venous systems demonstrate normal compressibility with normal response to augmentation and Valsalva. No fluid collection or mass is detected. IMPRESSION: No evidence of right or left lower extremity DVT. Dictated by: Dictated on workstation # [id number]
[2020-03-11 09:46] VITALS: BP 145/90
[2020-03-11] MEDS: ADVAIR HFA 115/21 MCG INHALER 8 GM IH SCH ×2 (09:47→18:16)
[2020-03-11] MEDS: amLODIPine 5 MG (NORVASC) TAB PO SCH (10:00)
[2020-03-11] MEDS: CARVEDILOL 6.25 MG (COREG) TAB PO SCH ×2 (10:00→20:56)
[2020-03-11] MEDS: SODIUM BICARBONATE 650 MG TABLET (NON-FORMULARY) PO SCH ×3 (10:00→16:59)
[2020-03-11] MEDS: PANTOPRAZOLE 40 MG (PROTONIX) TAB PO SCH (10:01)
[2020-03-11] MEDS: FLUTICASONE NASAL SPRAY (FLONASE) 16 GM BTL NS SCH (10:02)
[2020-03-11] MEDS: PROPOFOL DRIP (ICU) 100 ML IV SCH ×4 (10:07→21:02)
[2020-03-11 10:21] LABS: ABG BASE EXCESS 2.1 MMOL/L (-2.5-2.5); ABG OXYGEN SATURATION 98 % (94-100); ABG PCO2 51 MMHG (35-45); ABG PH 7.35 (7.37-7.43); ABG PO2 112 MMHG (79-93); ABG TCO2 28.8 MMOL/L (21.0-31.0)
[2020-03-11 10:23] LABS: ALLENS TEST YES-POS; INSPIRED O2 100%; PATIENT TEMP 37.2; VENTILATOR YES
--- NOTE | 2020-03-11 10:28 | NUR ---
0720 DR REYNAGA GAVE ORDER FOR INTUBATION, PREPARATION BEGAN 0744 50MCG FENTANYL, 4MG VERSED, 50MG MANNY, AND 5ML PROPOFOL GIVEN FOR INTUBATION 0746 INTUBATION COMPLETED. 8.0 ET, 24 LIP, AC, TV450, RATE 24, PEEP 14, AND 100%.
--- NOTE | 2020-03-11 10:31 | NUR ---
THE MED REC HAD BEEN COMPLETED ON 02-27-2020 WHEN THE PT WAS ADMITTED. DUE TO THE PT TRANSFERRING FROM SWING BED TO ICU I HAVE GONE IN AND REVIEWED ALL THE MEDS SO THEY CAN BE CONTINUED.
[2020-03-11] MEDS ORDERED: fentaNYL INJECTION 1,250 MCG in NS (IVPB) 250 ML IV SCH (11:00)
--- NOTE | 2020-03-11 11:46 | Physical Therapy Progress Note ---
Therapy Progress Note Patient currently sedated and intubated. PT will continue to monitor patient status and initiate treatment when patient is medically stable and able to actively participate with skilled therapy. DESIREE SMITH PT Mar 11, 2020 11:45
--- NOTE | 2020-03-11 14:35 | NUR ---
Subhash LUJAN stated pt is currently intubated/sedated. If pt is to remain NPO for more than 3days, would recommend the following TF: Pulmocare 1.5 kcal at rate of 15m/hr, with flushes of 25ml water q4h for hydration status and to prevent the tube from clogging. Will continue to follow and reassess as pt needs, intake, and status change. Betzy Blanton MS RD LD [phone] (cell)
[2020-03-11 14:36] VITALS: BP 145/90
[2020-03-11 18:16] VITALS: BP 123/79
[2020-03-11] MEDS: ALLOPURINOL 300 MG (ZYLOPRIM) TAB PO SCH (20:55)
[2020-03-11] MEDS: LORATADINE (CLARITIN) 10 MG TAB PO SCH (20:55)
[2020-03-11] MEDS: MELATONIN 3 MG TABLET PO SCH (20:56)
[2020-03-11] MEDS: TAMSULOSIN 0.4 MG (FLOMAX) CAP PO SCH (20:56)
[2020-03-11 21:03] VITALS: BP 132/77
[2020-03-12] MEDS: PROPOFOL DRIP (ICU) 100 ML IV SCH ×5 (01:02→17:29)
[2020-03-12] MEDS: RT-ALBUTEROL INHALER HFA (VENTOLIN HFA) 18 GM IH SCH ×5 (01:03→18:36)
[2020-03-12 01:04] VITALS: BP 128/69
[2020-03-12 03:35] LABS: BASOPHILS % (AUTO) 0 % (0-10); EOSINOPHILS % (AUTO) 0 % (0-10); HEMATOCRIT 35 % (40-54); HEMOGLOBIN 11.6 g/dL (13.3-17.7); LYMPHOCYTES # (AUTO) 0.2 10^3/uL (1.0-4.0); LYMPHOCYTES % (AUTO) 1 % (12-44); MEAN CORPUSCULAR HEMOGLOBIN 31 pg (25-34); MEAN CORPUSCULAR HGB CONC 33 g/dL (32-36); MEAN CORPUSCULAR VOLUME 95 fL (80-99); MEAN PLATELET VOLUME 12.1 fL (9.0-12.2); MONOCYTES # (AUTO) 0.4 10^3/uL (0.0-1.0); MONOCYTES % (AUTO) 2 % (0-12); NEUTROPHILS # (AUTO) 20.2 10^3/uL (1.8-7.8); NEUTROPHILS % (AUTO) 96 % (42-75); PLATELET COUNT 130 10^3/uL (130-400)
[2020-03-12 03:48] LABS: CALCIUM 7.7 MG/DL (8.5-10.1); CREATININE SERUM 1.45 MG/DL (0.60-1.30); MAGNESIUM 2.5 MG/DL (1.6-2.4); PHOSPHORUS 4.9 MG/DL (2.3-4.7); POTASSIUM 4.6 MMOL/L (3.6-5.0)
[2020-03-12] MEDS: POTASSIUM CL 10MEQ/50ML IVPB 50 ML IV SCH (04:23)
[2020-03-12] MEDS: KCL 20 MEQ TAB (K-DUR) PO SCH (04:23)
[2020-03-12] MEDS: MAGNESIUM 1 GM/100 ML IVPB 100 ML IV SCH (04:23)
[2020-03-12] MEDS: inSUlin ASPART (NovoLOG) 1 UNIT/0.01 ML (CHARGE PER UNIT) SC SCH ×4 (04:23→23:16)
[2020-03-12 04:26] LABS: ABG BASE EXCESS 2.8 MMOL/L (-2.5-2.5); ABG OXYGEN SATURATION 92 % (94-100); ABG PCO2 48 MMHG (35-45); ABG PH 7.38 (7.37-7.43); ABG PO2 67 MMHG (79-93); ABG TCO2 28.9 MMOL/L (21.0-31.0)
[2020-03-12 04:27] LABS: ALLENS TEST POSITIVE; INSPIRED O2 50; PATIENT TEMP 36.4; VENTILATOR YES
[2020-03-12] MEDS: CATHETER FLUSH 10 ML SYR IV SCH ×3 (04:43→21:05)
[2020-03-12] MEDS: ENOXAPARIN 100 MG/1 ML (LOVENOX) SYR SC SCH ×2 (05:38→17:31)
[2020-03-12] MEDS: LEVOTHYROXINE 150 MCG (LEVOTHROID) TAB PO SCH (05:38)
[2020-03-12] MEDS ORDERED: PIPERACILLIN/TAZOBACTAM (BULK) 4.5 GM in NS (IVPB) 100 ML IV SCH (06:00)
--- NOTE | 2020-03-12 06:02 | Pulmonary Progress Note ---
Subjective Time Seen by a Provider: 06:00 Sepsis Event Evaluation Height, Weight, BMI Height: '" Weight: 222lbs. oz. 100.301228ga; 35.46 BMI Method: Exam Exam Vital Signs Date Time Temp Pulse Resp B/P (MAP) Pulse Ox O2 Delivery O2 Flow Rate FiO2 03/12/20 04:44 80 117/56 03/12/20 01:04 89 29 94 60 03/12/20 01:02 80 128/69 03/12/20 01:00 85 03/11/20 23:44 35.8 Mechanical Ventilator 50.00 03/11/20 23:00 84 31 128/75 93 Mechanical Ventilator 50.00 03/11/20 22:39 Mechanical Ventilator 50.00 03/11/20 22:00 82 20 133/77 95 Mechanical Ventilator 60.00 03/11/20 21:03 81 28 96 60 03/11/20 21:02 80 132/77 03/11/20 21:00 Mechanical Ventilator 60.00 03/11/20 21:00 91 26 132/77 96 Mechanical Ventilator 60.00 03/11/20 20:00 96 Mechanical Ventilator 70 03/11/20 20:00 82 128/75 Mechanical Ventilator 70.00 03/11/20 19:44 24 96 Mechanical Ventilator 70.00 03/11/20 19:12 36.0 03/11/20 19:00 81 22 120/77 97 Mechanical Ventilator 80.00 03/11/20 19:00 81 03/11/20 19:00 Mechanical Ventilator 80.00 03/11/20 18:45 85 20 122/77 97 Mechanical Ventilator 80.00 03/11/20 18:25 60 03/11/20 18:16 90 24 97 80 03/11/20 18:00 83 23 126/81 97 Mechanical Ventilator 80.00 03/11/20 17:00 81 70 128/77 97 Mechanical Ventilator 80.00 03/11/20 16:58 80 123/74 03/11/20 16:02 35.9 03/11/20 16:00 97 Mechanical Ventilator 80 03/11/20 16:00 86 47 116/72 96 Mechanical Ventilator 80.00 03/11/20 15:00 77 37 120/76 94 Mechanical Ventilator 80.00 03/11/20 14:36 86 24 95 80 03/11/20 14:00 75 79 133/77 92 Mechanical Ventilator 80.00 03/11/20 13:00 89 44 121/70 92 Mechanical Ventilator 80.00 03/11/20 12:48 91 03/11/20 12:28 79 123/73 03/11/20 12:00 93 Mechanical Ventilator 80 03/11/20 12:00 87 57 122/81 92 Mechanical Ventilator 80.00 03/11/20 11:13 35.3 03/11/20 11:00 87 23 135/80 90 Mechanical Ventilator 80.00 03/11/20 10:07 87 124/77 03/11/20 10:00 94 45 124/73 90 Mechanical Ventilator 80.00 03/11/20 09:54 80 03/11/20 09:46 86 24 95 100 03/11/20 09:00 89 23 145/90 95 Mechanical Ventilator 80.00 03/11/20 08:00 121 23 121/93 93 Mechanical Ventilator 80.00 03/11/20 08:00 94 Mechanical Ventilator 100 03/11/20 07:58 114 24 94 100 03/11/20 07:56 36.2 03/11/20 07:00 96 41 132/87 75 Mechanical Ventilator 100.00 03/11/20 07:00 88 Vapotherm 40.00 100 03/11/20 06:36 97 I & O 03/12/20 07:00 Intake Total 400 ml Output Total 945 ml Balance -545 ml Height & Weight Height: '" Weight: 222lbs. oz. 100.193871oe; 35.46 BMI Method: General Appearance: Anxious, Mild Distress HEENT: PERRL/EOMI Neck: Full Range of Motion, Supple Respiratory: Chest Non Tender, Crackles, Decreased Breath Sounds Cardiovascular: Regular Rate, Rhythm Capillary Refill: Less Than 3 Seconds Gastrointestinal: non tender, soft Extremity: Normal Capillary Refill, Normal Range of Motion Neurologic/Psychiatric: Alert Skin: Normal Color, Warm/Dry Lymphatic: No Adenopathy Results Lab Laboratory Tests 03/11/20 02:00 03/12/20 02:38 Assessment/Plan Assessment/Plan Acute respiratory failure -Pt intubated 03/11 -Decadron 10mg IV daily -Start Zosyn -Check vides cultures -Start LR at 30cc/hr -Proning Presumed PE -DDIMer is 9.25 -Continue theraputic dose Lovenox COVID-19, influenza B -s/p Tamiflu -s/p Remdesivir,CVP Pneumonia with sepsis Influenza B chronic kidney injury -Baseline ~1.5 T2DM BPH Hypothyroidism Continue home meds MARGA REYNAGA DO Mar 12, 2020 06:02
[2020-03-12] MEDS ORDERED: PIPERACILLIN/TAZOBACTAM 4.5 GM in NS (IVPB) 100 ML IV ONE (06:30)
[2020-03-12] MEDS: LACTATED RINGERS 1,000 ML IV SCH (06:48)
[2020-03-12 06:58] LABS: BILIRUBIN,URINE NEGATIVE (NEGATIVE); CLARITY,URINE CLOUDY; COLOR,URINE YELLOW; GLUCOSE, URINE (UA) NEGATIVE (NEGATIVE); KETONES,URINE NEGATIVE (NEGATIVE); LEUKOCYTE ESTERASE ,URINE TRACE (NEGATIVE); NITRITE,URINE NEGATIVE (NEGATIVE); PROTEIN,URINE TRACE (NEGATIVE)
[2020-03-12] MEDS: ADVAIR HFA 115/21 MCG INHALER 8 GM IH SCH ×2 (06:59→18:36)
[2020-03-12 07:09] LABS: AMORPHOUS SEDIMENT,UR LARGE AMOR URATES /LPF; BACTERIA,URINE MODERATE /HPF; RBC,URINE >100 /HPF
--- NOTE | 2020-03-12 08:02 | Physical Therapy Progress Note ---
Therapy Progress Note Patient continues to be intubated and sedated, will monitor. NICOLAS KWAN PT Mar 12, 2020 08:02
--- NOTE | 2020-03-12 08:25 | Diagnostic Imaging Report ---
INDICATION: Shortness of breath Portable chest 7:39 AM There is ET tube projects over the trachea. There is NG tube with the tip at the GE junction. There are bilateral pulmonary infiltrates which are not significantly change from the previous day. There is no effusion or pneumothorax. IMPRESSION: Severe bilateral pulmonary infiltrates with relative sparing of the apices. No appreciable change from the previous day. NG tube tip is at the GE junction. Dictated by: Dictated on workstation # [id number]
[2020-03-12] MEDS: PANTOPRAZOLE 40 MG (PROTONIX) TAB PO SCH (09:05)
[2020-03-12] MEDS: CARVEDILOL 6.25 MG (COREG) TAB PO SCH ×2 (09:05→20:50)
[2020-03-12] MEDS: SODIUM BICARBONATE 650 MG TABLET (NON-FORMULARY) PO SCH ×3 (09:05→16:45)
[2020-03-12] MEDS: amLODIPine 5 MG (NORVASC) TAB PO SCH (09:05)
[2020-03-12] MEDS: FLUTICASONE NASAL SPRAY (FLONASE) 16 GM BTL NS SCH (09:06)
[2020-03-12 10:18] VITALS: BP 119/77
--- NOTE | 2020-03-12 10:48 | NUR ---
During care rounds, it was discussed to initiate enteral nutrition. Would recommend initiation of Pulmocare 1.5 at rate of 15ml/hr with flushes of 25ml water q4h for hydration and to prevent tube from clogging. Will continue to follow and reassess as pt needs, intake, and status change. Betzy Blanton MS RD LD [phone] (cell)
[2020-03-12] MEDS: PANTOPRAZOLE 40 MG (PROTONIX) VIAL IV SCH (10:57)
[2020-03-12] MEDS: [UNRECOGNIZED DRUG - OTHER] IV SCH (11:03)
[2020-03-12] MEDS: FENTANYL IV SCH (11:03)
[2020-03-12] MEDS ORDERED: PIPERACILLIN/TAZO 4.5 GM/NS 100 ML IV SCH ×2 (12:30)
[2020-03-12 14:38] VITALS: BP 120/72
--- NOTE | 2020-03-12 15:01 | Physical Therapy Progress Note ---
Therapy Progress Note Non skilled PROM performed B U/LE's all available planes. Caution used with right shoulder due to recent shoulder injury. NORM CHISHOLM PT Mar 12, 2020 15:01
[2020-03-12] MEDS: PIPERACILLIN/TAZO 4.5 GM/NS 100 ML IV SCH ×4 (16:45→23:15)
[2020-03-12 18:36] VITALS: BP 120/72
[2020-03-12] MEDS: TAMSULOSIN 0.4 MG (FLOMAX) CAP PO SCH (20:50)
[2020-03-12] MEDS: ALLOPURINOL 300 MG (ZYLOPRIM) TAB PO SCH (20:50)
[2020-03-12] MEDS: LORATADINE (CLARITIN) 10 MG TAB PO SCH (20:51)
[2020-03-12] MEDS: MELATONIN 3 MG TABLET PO SCH (20:51)
[2020-03-12] MEDS ORDERED: NS IV 1000 ML 1,000 ML IV SCH (23:30)
[2020-03-12] MEDS ORDERED: NS IV 1000 ML 1,000 ML ONE (23:32)
[2020-03-13] MEDS: PROPOFOL DRIP (ICU) 100 ML IV SCH ×4 (01:29→18:33)
[2020-03-13] MEDS ORDERED: NS IV 1000 ML 1,000 ML IV SCH (01:45)
[2020-03-13] MEDS: RT-ALBUTEROL INHALER HFA (VENTOLIN HFA) 18 GM IH SCH ×7 (02:16→21:52)
[2020-03-13 02:17] VITALS: BP 121/49
[2020-03-13 03:11] LABS: ABG BASE EXCESS -1.4 MMOL/L (-2.5-2.5); ABG OXYGEN SATURATION 94 % (94-100); ABG PCO2 42 MMHG (35-45); ABG PH 7.36 (7.37-7.43); ABG PO2 72 MMHG (79-93); ABG TCO2 24.8 MMOL/L (21.0-31.0)
[2020-03-13 03:16] LABS: ALLENS TEST ARTLINE; INSPIRED O2 45%; PATIENT TEMP 36.1; VENTILATOR YES
--- NOTE | 2020-03-13 06:10 | Pulmonary Progress Note ---
Subjective Time Seen by a Provider: 06:09 Subjective/Events-last exam Sedated on vent. Sepsis Event Evaluation Height, Weight, BMI Height: '" Weight: 222lbs. oz. 100.691698ml; 35.46 BMI Method: Exam Exam Vital Signs Date Time Temp Pulse Resp B/P (MAP) Pulse Ox O2 Delivery O2 Flow Rate FiO2 03/13/20 04:00 92 23 123/77 95 Mechanical Ventilator 50.00 03/13/20 03:00 93 21 128/55 95 Mechanical Ventilator 50.00 03/13/20 02:17 85 25 91 45 03/13/20 02:00 88 17 130/75 95 Mechanical Ventilator 50.00 03/13/20 01:29 82 92/47 03/13/20 01:00 79 03/13/20 01:00 87 24 93/35 95 Mechanical Ventilator 50.00 03/13/20 00:00 87 17 121/80 95 Mechanical Ventilator 50.00 03/12/20 23:00 76 23 112/50 95 Mechanical Ventilator 50.00 03/12/20 22:00 83 27 91/48 94 Mechanical Ventilator 50.00 03/12/20 21:00 89 21 107/57 93 Mechanical Ventilator 50.00 03/12/20 20:00 91 23 104/66 93 Mechanical Ventilator 50.00 03/12/20 20:00 96 Mechanical Ventilator 45 03/12/20 19:18 36.1 03/12/20 19:00 82 19 124/74 92 Mechanical Ventilator 50.00 03/12/20 19:00 79 03/12/20 18:36 85 25 91 45 03/12/20 18:00 89 11 135/88 94 Mechanical Ventilator 50.00 03/12/20 17:29 85 120/72 03/12/20 17:00 87 17 140/89 94 Mechanical Ventilator 50.00 03/12/20 16:44 85 120/72 03/12/20 16:00 82 15 137/81 96 Mechanical Ventilator 50.00 03/12/20 15:40 35.6 03/12/20 15:00 73 10 138/75 94 Mechanical Ventilator 50.00 03/12/20 14:38 85 25 91 60 03/12/20 14:00 81 167/89 93 Mechanical Ventilator 50.00 03/12/20 13:30 35.6 03/12/20 13:00 65 58 117/80 93 Mechanical Ventilator 50.00 03/12/20 12:32 77 03/12/20 12:00 75 22 118/77 93 Mechanical Ventilator 50.00 03/12/20 11:00 84 9 123/77 92 Mechanical Ventilator 50.00 03/12/20 10:18 87 24 92 50 03/12/20 10:00 75 6 128/76 91 Mechanical Ventilator 50.00 03/12/20 09:04 82 119/75 03/12/20 09:00 36.2 03/12/20 09:00 78 8 124/69 95 Mechanical Ventilator 50.00 03/12/20 08:00 96 Mechanical Ventilator 60 03/12/20 08:00 82 11 127/73 93 Mechanical Ventilator 50.00 03/12/20 07:00 80 26 151/89 94 Mechanical Ventilator 50.00 03/12/20 06:59 82 28 93 50 03/12/20 06:42 81 I & O 03/13/20 07:00 Intake Total 2620 ml Output Total 625 ml Balance 1995 ml Height & Weight Height: '" Weight: 222lbs. oz. 100.208803ul; 35.46 BMI Method: Capillary Refill: Less Than 3 Seconds Results Lab Laboratory Tests 03/12/20 02:38 Assessment/Plan Assessment/Plan Acute respiratory failure -Pt intubated 03/11 -Decadron 10mg IV daily -Start Zosyn -Check vides cultures -Start LR at 30cc/hr -Proning Presumed PE -DDIMer is 9.25 -Continue theraputic dose Lovenox COVID-19, influenza B -s/p Tamiflu -s/p Remdesivir,CVP Pneumonia with sepsis Influenza B chronic kidney injury -Baseline ~1.5 T2DM BPH Hypothyroidism Continue home meds MARGA REYNAGA DO Mar 13, 2020 06:10
[2020-03-13] MEDS: ENOXAPARIN 100 MG/1 ML (LOVENOX) SYR SC SCH ×2 (06:21→18:33)
[2020-03-13] MEDS: inSUlin ASPART (NovoLOG) 1 UNIT/0.01 ML (CHARGE PER UNIT) SC SCH ×4 (06:21→23:01)
[2020-03-13] MEDS: LEVOTHYROXINE 150 MCG (LEVOTHROID) TAB PO SCH (06:21)
[2020-03-13] MEDS: CATHETER FLUSH 10 ML SYR IV SCH ×3 (06:22→21:19)
[2020-03-13] MEDS: POTASSIUM CL 10MEQ/50ML IVPB 50 ML IV SCH (06:30)
[2020-03-13] MEDS: MAGNESIUM 1 GM/100 ML IVPB 100 ML IV SCH (06:31)
[2020-03-13] MEDS: KCL 20 MEQ TAB (K-DUR) PO SCH (06:31)
[2020-03-13] MEDS: LACTATED RINGERS 1,000 ML IV SCH ×2 (06:31→18:33)
[2020-03-13] MEDS: PIPERACILLIN/TAZO 4.5 GM/NS 100 ML IV SCH ×6 (06:33→22:54)
--- NOTE | 2020-03-13 08:04 | Diagnostic Imaging Report ---
INDICATION: Respiratory failure Portable chest 7:25 AM There is an ET tube projecting over the trachea. NG tube appears to enter the stomach. There are infiltrates in both lungs which appear improved from the previous day. There are no effusions. IMPRESSION: Improving bilateral pulmonary infiltrates Dictated by: Dictated on workstation # [id number]
[2020-03-13] MEDS: CARVEDILOL 6.25 MG (COREG) TAB PO SCH ×2 (08:06→21:21)
[2020-03-13] MEDS: amLODIPine 5 MG (NORVASC) TAB PO SCH (08:06)
[2020-03-13] MEDS: PANTOPRAZOLE 40 MG (PROTONIX) VIAL IV SCH (08:06)
[2020-03-13] MEDS: SODIUM BICARBONATE 650 MG TABLET (NON-FORMULARY) PO SCH ×3 (08:06→18:33)
[2020-03-13] MEDS: FLUTICASONE NASAL SPRAY (FLONASE) 16 GM BTL NS SCH (08:07)
--- NOTE | 2020-03-13 08:09 | Physical Therapy Progress Note ---
Therapy Progress Note Patient remains sedated and intubated. PT will continue to monitor status. DESIREE SMITH PT Mar 13, 2020 08:09
--- NOTE | 2020-03-13 09:03 | Diagnostic Imaging Report ---
PROCEDURE: US venous upper extremity left. TECHNIQUE: Multiple realtime grayscale images were obtained of left upper extremity in various projections. Additional spectral analysis and color Doppler duplex images were also obtained. INDICATION: Left arm pain swelling There is thrombotic occlusion of the left brachial vein, upper arm extends into the radial vein in the forearm. The axillary subclavian vein appears to be clear. IMPRESSION: There is deep vein thrombosis of the left arm extending from the radial vein up into the proximal brachial vein. Dictated by: Dictated on workstation # [id number]
[2020-03-13 10:30] VITALS: BP 105/71
[2020-03-13] MEDS: ADVAIR HFA 115/21 MCG INHALER 8 GM IH SCH ×2 (10:30→18:40)
[2020-03-13 10:53] LABS: BASOPHILS % (AUTO) 0 % (0-10); EOSINOPHILS % (AUTO) 0 % (0-10); HEMATOCRIT 29 % (40-54); HEMOGLOBIN 9.4 g/dL (13.3-17.7); LYMPHOCYTES # (AUTO) 0.3 10^3/uL (1.0-4.0); LYMPHOCYTES % (AUTO) 2 % (12-44); MEAN CORPUSCULAR HEMOGLOBIN 31 pg (25-34); MEAN CORPUSCULAR HGB CONC 33 g/dL (32-36); MEAN CORPUSCULAR VOLUME 96 fL (80-99); MEAN PLATELET VOLUME 12.5 fL (9.0-12.2); MONOCYTES # (AUTO) 0.7 10^3/uL (0.0-1.0); MONOCYTES % (AUTO) 4 % (0-12); NEUTROPHILS # (AUTO) 16.7 10^3/uL (1.8-7.8); NEUTROPHILS % (AUTO) 93 % (42-75); PLATELET COUNT 111 10^3/uL (130-400); WHITE BLOOD COUNT 17.9 10^3/uL (4.3-11.0)
[2020-03-13 11:09] LABS: CALCIUM 7.3 MG/DL (8.5-10.1); CREATININE SERUM 1.76 MG/DL (0.60-1.30); MAGNESIUM 2.6 MG/DL (1.6-2.4); PHOSPHORUS 5.5 MG/DL (2.3-4.7); POTASSIUM 4.4 MMOL/L (3.6-5.0)
[2020-03-13 11:12] LABS: MONOCYTES % (MANUAL) 1 %; NEUTROPHILS % (MANUAL) 99 %; RBC MORPH NORMAL
[2020-03-13] MEDS: FENTANYL IV SCH (12:53)
[2020-03-13] MEDS: [UNRECOGNIZED DRUG - OTHER] IV SCH (12:53)
--- NOTE | 2020-03-13 13:08 | NUR ---
During care rounds, it was noted pt is currently receiving Pulmocare 1.5 kcal at rate of 15ml/hr with flushes of 25ml water q4h. Per RN, pt is tolerating TF well at this time. Would recommend continue at current rate. Will continue to follow and reassess as pt needs, intake, and status change. Betzy Blanton, MS RD LD [phone] (cell)
--- NOTE | 2020-03-13 13:18 | Diagnostic Imaging Report ---
HISTORY: PICC line placement TECHNIQUE: Frontal view of the chest COMPARISON: 03/13/2020 FINDINGS: The tip of the right PICC line projects over the cavoatrial junction. The endotracheal tube is approximately 8 cm above the bharati. There are patchy airspace opacities in the lungs bilaterally. Overall aeration appears similar to the prior study. No significant pleural effusion or pneumothorax is seen. There is stable mild cardiomegaly. IMPRESSION: 1. The tip of the right PICC line projects over the cavoatrial junction. 2. Bilateral airspace opacities, appear stable since the prior study. Dictated by: Dictated on workstation # [id number]
--- NOTE | 2020-03-13 15:00 | Physical Therapy Progress Note ---
Therapy Progress Note Non skilled PROM B U/LE in available planes; caution used right shoulder joint due to prior injury. Proning team followed this therapist to complete the proning procedure. NORM CHISHOLM PT Mar 13, 2020 15:00
[2020-03-13 15:35] VITALS: BP 123/69
[2020-03-13 18:40] VITALS: BP 162/92
[2020-03-13] MEDS: ALLOPURINOL 300 MG (ZYLOPRIM) TAB PO SCH (21:21)
[2020-03-13] MEDS: TAMSULOSIN 0.4 MG (FLOMAX) CAP PO SCH (21:21)
[2020-03-13] MEDS: MELATONIN 3 MG TABLET PO SCH (21:22)
[2020-03-13] MEDS: LORATADINE (CLARITIN) 10 MG TAB PO SCH (21:22)
[2020-03-13 21:52] VITALS: BP 162/92
[2020-03-14] MEDS ORDERED: NS 250 ML (IVPB) BAG IV ONE
[2020-03-14] MEDS ORDERED: NS (IVPB) 250 ML ONE (00:04)
[2020-03-14] MEDS ORDERED: NS (IVPB) 250 ML IV ONE (00:15)
[2020-03-14] MEDS: PROPOFOL DRIP (ICU) 100 ML IV SCH ×4 (00:16→17:43)
[2020-03-14 01:50] VITALS: BP 111/61
[2020-03-14] MEDS: RT-ALBUTEROL INHALER HFA (VENTOLIN HFA) 18 GM IH SCH ×6 (01:50→23:05)
[2020-03-14 02:32] LABS: ABG BASE EXCESS 1.3 MMOL/L (-2.5-2.5); ABG OXYGEN SATURATION 59 % (94-100); ABG PCO2 44 MMHG (35-45); ABG PH 7.38 (7.37-7.43); ABG PO2 44 MMHG (79-93); ABG TCO2 27.3 MMOL/L (21.0-31.0)
[2020-03-14 02:35] LABS: BASOPHILS % (AUTO) 0 % (0-10); EOSINOPHILS % (AUTO) 0 % (0-10); HEMATOCRIT 27 % (40-54); HEMOGLOBIN 8.7 g/dL (13.3-17.7); LYMPHOCYTES # (AUTO) 0.5 10^3/uL (1.0-4.0); LYMPHOCYTES % (AUTO) 3 % (12-44); MEAN CORPUSCULAR HEMOGLOBIN 31 pg (25-34); MEAN CORPUSCULAR HGB CONC 33 g/dL (32-36); MEAN CORPUSCULAR VOLUME 95 fL (80-99); MEAN PLATELET VOLUME 12.6 fL (9.0-12.2); MONOCYTES # (AUTO) 0.7 10^3/uL (0.0-1.0); MONOCYTES % (AUTO) 4 % (0-12); NEUTROPHILS # (AUTO) 14.9 10^3/uL (1.8-7.8); NEUTROPHILS % (AUTO) 92 % (42-75); PLATELET COUNT 100 10^3/uL (130-400); WHITE BLOOD COUNT 16.3 10^3/uL (4.3-11.0)
[2020-03-14 02:36] LABS: ALLENS TEST YES-POS
[2020-03-14 02:37] LABS: INSPIRED O2 35%; PATIENT TEMP 36.7; VENTILATOR YES
[2020-03-14 02:44] LABS: POTASSIUM 4.1 MMOL/L (3.6-5.0)
[2020-03-14 02:46] LABS: CALCIUM 7.1 MG/DL (8.5-10.1)
[2020-03-14 02:50] LABS: CREATININE SERUM 1.73 MG/DL (0.60-1.30); PHOSPHORUS 4.2 MG/DL (2.3-4.7)
[2020-03-14 02:52] LABS: MAGNESIUM 2.7 MG/DL (1.6-2.4)
--- NOTE | 2020-03-14 04:32 | Pulmonary Progress Note ---
Subjective Time Seen by a Provider: 04:32 Subjective/Events-last exam sedated on vent. Sepsis Event Evaluation Height, Weight, BMI Height: '" Weight: 222lbs. oz. 100.487360ge; 35.46 BMI Method: Exam Exam Vital Signs Date Time Temp Pulse Resp B/P (MAP) Pulse Ox O2 Delivery O2 Flow Rate FiO2 03/14/20 03:00 93 19 124/54 93 Mechanical Ventilator 35.00 03/14/20 02:00 88 21 119/70 93 Mechanical Ventilator 35.00 03/14/20 01:50 89 28 93 35 03/14/20 01:00 100 03/14/20 01:00 87 21 122/57 93 Mechanical Ventilator 35.00 03/14/20 00:16 98 134/64 03/14/20 00:00 90 19 133/64 92 Mechanical Ventilator 35.00 03/13/20 23:00 93 21 90/63 93 Mechanical Ventilator 35.00 03/13/20 22:00 96 21 86/56 93 Mechanical Ventilator 35.00 03/13/20 21:57 Mechanical Ventilator 35.00 03/13/20 21:52 99 27 98 35 03/13/20 21:00 98 21 122/60 95 Mechanical Ventilator 50.00 03/13/20 20:00 98 21 142/74 93 Mechanical Ventilator 50.00 03/13/20 20:00 36.4 03/13/20 19:23 92 Mechanical Ventilator 40 03/13/20 19:00 105 17 144/84 90 Mechanical Ventilator 50.00 03/13/20 19:00 104 03/13/20 18:40 101 33 98 40 03/13/20 18:33 87 129/47 03/13/20 18:05 87 16 129/47 93 Mechanical Ventilator 50.00 03/13/20 17:00 81 10 142/59 94 Mechanical Ventilator 50.00 03/13/20 16:00 91 7 134/62 92 Mechanical Ventilator 50.00 03/13/20 16:00 36.0 03/13/20 15:35 89 28 96 50 03/13/20 15:00 46 20 108/86 95 Mechanical Ventilator 50.00 03/13/20 14:00 85 19 116/64 97 Mechanical Ventilator 50.00 03/13/20 13:00 82 23 157/82 98 Mechanical Ventilator 50.00 03/13/20 12:54 80 113/54 03/13/20 12:30 35.6 03/13/20 12:00 80 18 113/54 95 Mechanical Ventilator 50.00 03/13/20 11:57 75 03/13/20 11:07 79 21 113/66 95 Mechanical Ventilator 50.00 03/13/20 10:30 68 27 96 50 03/13/20 10:00 68 21 104/58 96 Mechanical Ventilator 50.00 03/13/20 09:00 92 21 135/66 95 Mechanical Ventilator 50.00 03/13/20 08:20 36.1 Mechanical Ventilator 50.00 03/13/20 08:06 96 119/40 03/13/20 08:00 90 23 121/67 94 Mechanical Ventilator 50.00 03/13/20 08:00 96 Mechanical Ventilator 50 03/13/20 07:34 03/13/20 07:00 96 15 119/40 95 Mechanical Ventilator 50.00 03/13/20 06:40 87 03/13/20 06:00 90 19 106/38 95 Mechanical Ventilator 50.00 03/13/20 05:00 96 24 96/46 96 Mechanical Ventilator 50.00 I & O 03/14/20 07:00 Intake Total 430 ml Output Total 900 ml Balance -470 ml Height & Weight Height: '" Weight: 222lbs. oz. 100.508066df; 35.46 BMI Method: General Appearance: Other (sedated on vent ) HEENT: PERRL/EOMI, Pharynx Normal Neck: Full Range of Motion, Supple Respiratory: Chest Non Tender, No Accessory Muscle Use, No Respiratory Distress Cardiovascular: Regular Rate, Rhythm Capillary Refill: Less Than 3 Seconds Gastrointestinal: normal bowel sounds, non tender, soft Extremity: Normal Capillary Refill, Normal Inspection Results Lab Laboratory Tests 03/13/20 10:30 03/14/20 02:30 Assessment/Plan Assessment/Plan Acute respiratory failure -Pt intubated 03/11 -Decadron 10mg IV daily - Zosyn -vides cultures -Start LR at 30cc/hr -Proning Presumed PE -DDIMer is 9.25 -Continue theraputic dose Lovenox COVID-19, influenza B -s/p Tamiflu -s/p Remdesivir,CVP LUE DVT -Theraputic dose Lovenox Pneumonia with sepsis Influenza B chronic kidney injury -Baseline ~1.5 T2DM BPH Hypothyroidism Continue home meds MARGA REYNAGA DO Mar 14, 2020 04:32
[2020-03-14] MEDS: MAGNESIUM 1 GM/100 ML IVPB 100 ML IV SCH (05:41)
[2020-03-14] MEDS: POTASSIUM CL 10MEQ/50ML IVPB 50 ML IV SCH (05:41)
[2020-03-14] MEDS: KCL 20 MEQ TAB (K-DUR) PO SCH (05:42)
[2020-03-14] MEDS: inSUlin ASPART (NovoLOG) 1 UNIT/0.01 ML (CHARGE PER UNIT) SC SCH ×4 (06:31→23:49)
[2020-03-14] MEDS: LEVOTHYROXINE 150 MCG (LEVOTHROID) TAB PO SCH (06:31)
[2020-03-14] MEDS: CATHETER FLUSH 10 ML SYR IV SCH ×3 (06:31→22:10)
[2020-03-14] MEDS: ENOXAPARIN 100 MG/1 ML (LOVENOX) SYR SC SCH ×2 (06:31→18:01)
[2020-03-14] MEDS: PIPERACILLIN/TAZO 4.5 GM/NS 100 ML IV SCH ×6 (06:31→22:35)
[2020-03-14 07:12] VITALS: BP 150/77
[2020-03-14] MEDS: ADVAIR HFA 115/21 MCG INHALER 8 GM IH SCH ×2 (07:12→18:55)
[2020-03-14] MEDS ORDERED: NS IV 1000 ML 1,000 ML ONE (07:16)
[2020-03-14] MEDS: PANTOPRAZOLE 40 MG (PROTONIX) VIAL IV SCH (07:52)
[2020-03-14] MEDS: amLODIPine 5 MG (NORVASC) TAB PO SCH (07:52)
[2020-03-14] MEDS: SODIUM BICARBONATE 650 MG TABLET (NON-FORMULARY) PO SCH ×3 (07:52→17:42)
[2020-03-14] MEDS: CARVEDILOL 6.25 MG (COREG) TAB PO SCH ×2 (07:52→20:21)
--- NOTE | 2020-03-14 07:52 | Physical Therapy Progress Note ---
Therapy Progress Note Patient remains sedated and intubated. PT will continue to monitor patient status. DESIREE SMITH PT Mar 14, 2020 07:52
[2020-03-14] MEDS: FLUTICASONE NASAL SPRAY (FLONASE) 16 GM BTL NS SCH (07:53)
--- NOTE | 2020-03-14 08:06 | Diagnostic Imaging Report ---
EXAMINATION: Chest 1 view HISTORY: Intubated. COVID positive. COMPARISON: 03/13/2020. FINDINGS: Support devices are stable in configuration. Increased patchy opacities are seen throughout the lungs, with the greatest distribution in the mid and lower lungs. No large pleural effusion or pneumothorax. The cardiac silhouette is stable. IMPRESSION: 1. Increasing patchy opacities involving the bilateral mid and lower lungs. 2. Stable support devices. Dictated by: Dictated on workstation # [id number]
--- NOTE | 2020-03-14 10:07 | Anesthesia-Procedure Note ---
Procedures/Interventions Procedure Start/Stop/Diagnosis Date of Procedure: Mar 14, 2020 Start Time: 09:40 Referring Physician: Elba Preprocedural Diagnosis: COVID+ Resp failure Brief History Called by mailhouse operator to start A-line on pt in ICU. Pt sedated on vent. Brief hx obtained from RN and chart. Unable to place left arm due to DVT. Rt radial had a large hematoma with no palpable radial pulse. I was able to visualize pulsatile flow with ultrasound. #20g arrow catheter placed with U/S guidance x1 attempt. Good blood flow and wave form present on monitor. Secured with opsite and tape. Left pt in care of RN with report. Stop Time: 10:00 Postprocedural Diagnosis: COVID+ Resp failure Arterial Line Arterial Line Catheter: 20G Type: Radial Location: Right Procedure: prepped, draped in sterile fashion, good wave-form was obtained, patient tolerated procedure well, no immediate complications, post procedure area cleaned, post procedure dressing applied NOE ACE CRNA Mar 14, 2020 10:07
[2020-03-14] MEDS ORDERED: NOREPINEPHRINE 4 MG/250 ML 250 ML IV ONE ×2 (10:08→21:33)
[2020-03-14] MEDS: NOREPINEPHRINE 4 MG/250 ML 250 ML IV SCH ×4 (10:13→20:44)
[2020-03-14] MEDS: [UNRECOGNIZED DRUG - OTHER] IV SCH ×2 (10:14→10:21)
[2020-03-14] MEDS: FENTANYL IV SCH ×2 (10:14→10:21)
[2020-03-14 11:40] VITALS: BP 88/44
--- NOTE | 2020-03-14 13:20 | NUR ---
During care rounds, it was noted pt is currently receiving Pulmocare 1.5 kcal at rate of 15ml/hr with flushes of 25ml water q4h. Per RN, pt is tolerating TF well at this time. Would recommend conservative increases of 10ml q12h to goal rate of 45ml/hr. Will continue to follow and reassess as pt needs, intake, and status change. Betzy Blanton, MS RD LD [phone] (cell)
[2020-03-14 14:31] VITALS: BP 88/44
[2020-03-14] MEDS: TAMSULOSIN 0.4 MG (FLOMAX) CAP PO SCH (20:21)
[2020-03-14] MEDS: MELATONIN 3 MG TABLET PO SCH (20:21)
[2020-03-14] MEDS: ALLOPURINOL 300 MG (ZYLOPRIM) TAB PO SCH (20:21)
[2020-03-14] MEDS: LORATADINE (CLARITIN) 10 MG TAB PO SCH (20:21)
[2020-03-14] MEDS ORDERED: VASOPRESSIN INJECTION 20 UNIT in NS (IVPB) 100 ML IV SCH (22:00)
[2020-03-14] MEDS ORDERED: LACTATED RINGERS 1,000 ML IV SCH (22:00)
[2020-03-14] MEDS ORDERED: HYDROCORTISONE 100 MG/2 ML (Solu-CORTEF) VIAL IV SCH (22:00)
[2020-03-14] MEDS ORDERED: HYDROCORTISONE 100 MG/2 ML (Solu-CORTEF) VIAL ONE (22:10)
[2020-03-14] MEDS ORDERED: VASOPRESSIN INJECTION 20 UNIT/ML VIAL ONE (22:11)
[2020-03-14] MEDS ORDERED: NS (IVPB) 100 ML ONE (22:14)
[2020-03-14] MEDS: SODIUM CHLORIDE IV SCH ×2 (22:30)
[2020-03-14] MEDS: NOREPINEPHRINE IV SCH ×2 (22:30)
[2020-03-14 22:35] VITALS: BP 65/35
[2020-03-15] MEDS: NOREPINEPHRINE IV SCH ×2 (02:21)
[2020-03-15] MEDS: SODIUM CHLORIDE IV SCH ×2 (02:21)
[2020-03-15] MEDS: PROPOFOL DRIP (ICU) 100 ML IV SCH (02:22)
[2020-03-15] MEDS: RT-ALBUTEROL INHALER HFA (VENTOLIN HFA) 18 GM IH SCH (03:06)
[2020-03-15 04:01] LABS: BASOPHILS % (AUTO) 0 % (0-10); EOSINOPHILS % (AUTO) 0 % (0-10); LYMPHOCYTES # (AUTO) 0.7 10^3/uL (1.0-4.0); LYMPHOCYTES % (AUTO) 2 % (12-44); MEAN CORPUSCULAR HEMOGLOBIN 33 pg (25-34); MEAN CORPUSCULAR HGB CONC 33 g/dL (32-36); MEAN CORPUSCULAR VOLUME 100 fL (80-99); MEAN PLATELET VOLUME 12.8 fL (9.0-12.2); MONOCYTES # (AUTO) 1.2 10^3/uL (0.0-1.0); MONOCYTES % (AUTO) 4 % (0-12); NEUTROPHILS # (AUTO) 24.8 10^3/uL (1.8-7.8); NEUTROPHILS % (AUTO) 89 % (42-75); PLATELET COUNT 116 10^3/uL (130-400)
[2020-03-15 04:18] LABS: HEMATOCRIT 20 % (40-54); HEMOGLOBIN 6.6 g/dL (13.3-17.7)
[2020-03-15 04:26] LABS: CALCIUM 6.6 MG/DL (8.5-10.1)
[2020-03-15 04:30] LABS: PHOSPHORUS 8.4 MG/DL (2.3-4.7)
[2020-03-15 04:31] LABS: CREATININE SERUM 2.5 MG/DL (0.60-1.30)
[2020-03-15] MEDS ORDERED: NS IV 1000 ML 1,000 ML ONE (04:54)
[2020-03-15 05:10] LABS: NEUTROPHILS % (MANUAL) 82 %
[2020-03-15 05:11] LABS: ANISOCYTOSIS MARKED; ATYPICAL LYMPHOCYTES 1 %; BAND NEUTROPHILS 7 %; BLAST CELLS 1 %; LYMPHOCYTES % (MANUAL) 3 %; METAMYELOCYTES % 2 %; MONOCYTES % (MANUAL) 4 %; NUCLEATED RED BLOOD CELLS 2; POLYCHROMASIA MARKED
--- NOTE | 2020-03-15 07:04 | NUR ---
TIME LINE NOTE: 2034- HELD PRESSURE TO THE RIGHT ARM PICC LINE SITE. SITE IS BLEEDING. 2146- 20 MINUTES OF PRESSURE HELD TO PICC LINE SITE. DRESSING CHANGED AT THIS TIME. HYPOTENSIVE. INCREASED LEVOPHED TO MAX TITRATION. CONTACTED [facility], SPOKE WITH DR. MARIA, INFORMED HER OF BP CHANGES, AND PRESSURE BEING HELP X2 ON THE PICC LINE SITE. ORDERS RECEIVED FOR LR BOLUS, SOLUCORTEF, AND VASOPRESSIN. 2318- JOSÉ MIGUEL ( GRAND DAUGHTER) CALLED TO GET UPDATE. PASSWORD PROVIDED FOR ACCOUNT. UPDATED ON CHANGES AND INCREASE NEED FOR BLOOD PRESSURE SUPPORT AND PERSISTENT BLEEDING FROM PICC LINE SITE. 0133- CHANGED PICC LINE DRESSING. PRESSURE DRESSING PLACED JUST ABOVE THE SITE. ART LINE IS NOW NON FUNCTIONAL, BP CUFF PLACED ON THE LEFT CALF. 0343- SPONTANEOUS CONVERSION TO SR FROM CHRONIC AFIB. 0418- CRITICAL HBG/HCT RESULTS RECEIVED. 0420- REPORTED CRITICAL RESULTS TO DR. MARIA. ORDERS RECEIVED TO TYPE AND SCREEN AND INFUSE 1 UNIT PRBC. 0430- PULSE CHECK WHILE PRONE. PULSELESS IN PEA. ASSISTANCE TO ROOM TO HELP SUPINE PATIENT. 0434- COMPRESSIONS STARTED. PEA. 1 AMP EPI GIVEN. 0435-AMP OF ATROPINE GIVEN. 0436- PULSE CHECK. ASYSTOLE. CONTINUE COMPRESSIONS. 0438-ATROPINE GIVEN. EPI GIVEN. PEA. CONTINUE COMPRESSIONS. 0440- PEA. CONTINUE COMPRESSIONS. 0441-SINUS TACHYCARDIA OBTAINED. 0443- PEA. EPI GIVEN., COMPRESSIONS RESUMED. 0445- PULSE CHECK. PEA. COMPRESSION CONTINUED. 0446- EPI GIVEN. 0447- SINUS TACHYCARDIA. 0455- PEA. COMPRESSIONS STARTED. 0456- TOD CALLED BY DR. REYNAGA. 0515- VOICEMAIL LEFT FOR JOSÉ MIGUEL (GRAND DAUGHTER). 0516- CONTACT MADE WITH SON SAM. INFORMED HIM OF . WILL USE [facility] IN [place]. 0525- [facility] NOTIFIED. NOT A CANDIDATE. 0605- [facility] NOTIFIED AND WILL COME PICK BODY UP THIS AM.
--- NOTE | 2020-03-15 07:08 | Physical Therapy Progress Note ---
Therapy Progress Note Patient remains sedated and intubated. PT will continue to follow patient status. DESIREE SMITH PT Mar 15, 2020 07:08
--- NOTE | 2020-03-15 07:31 | Physical Therapy Progress Note ---
Therapy Progress Note Patient . DESIREE SMITH PT Mar 15, 2020 07:30
--- NOTE | 2020-03-15 08:26 | Pulmonary Progress Note ---
Subjective Time Seen by a Provider: 04:30 Subjective/Events-last exam Pt sedated on vent. CODE team at bedside upon my arrival. Sepsis Event Evaluation Height, Weight, BMI Height: '" Weight: 222lbs. oz. 100.038708hi; 35.46 BMI Method: Exam Exam Vital Signs Date Time Temp Pulse Resp B/P (MAP) Pulse Ox O2 Delivery O2 Flow Rate FiO2 03/15/20 04:00 93 19 79/62 95 Mechanical Ventilator 65.00 03/15/20 03:00 89 15 130/59 97 Mechanical Ventilator 65.00 03/15/20 02:24 Mechanical Ventilator 65.00 03/15/20 02:22 80 03/15/20 02:20 Mechanical Ventilator 60.00 03/15/20 02:16 36.7 Mechanical Ventilator 50.00 03/15/20 02:00 82 20 129/84 96 Mechanical Ventilator 40.00 03/15/20 01:00 77 10 104/43 92 Mechanical Ventilator 40.00 03/15/20 01:00 80 03/15/20 00:00 85 19 117/49 94 Mechanical Ventilator 40.00 03/14/20 23:05 90 30 92 40 03/14/20 23:00 80 19 131/58 94 Mechanical Ventilator 40.00 03/14/20 22:35 65/35 03/14/20 22:00 90 22 109/51 94 Mechanical Ventilator 40.00 03/14/20 21:45 55/39 03/14/20 21:00 93 17 102/46 95 Mechanical Ventilator 40.00 03/14/20 20:45 83/42 03/14/20 20:44 88/46 03/14/20 20:40 94 Mechanical Ventilator 40 03/14/20 20:32 88/42 03/14/20 20:30 36.3 Mechanical Ventilator 40.00 03/14/20 20:00 87 17 137/50 94 Mechanical Ventilator 60.00 03/14/20 19:00 100 03/14/20 19:00 87 19 99/44 96 Mechanical Ventilator 60.00 03/14/20 18:50 92 28 96 50 03/14/20 18:00 90 20 95/45 93 Mechanical Ventilator 60.00 03/14/20 17:43 90 107/50 03/14/20 17:43 90 107/50 10/30/20 17:00 90 10 107/50 92 Mechanical Ventilator 60.00 03/14/20 16:00 86 19 103/60 93 Mechanical Ventilator 60.00 03/14/20 15:54 93 88/44 03/14/20 15:17 36.4 03/14/20 15:00 86 19 108/48 92 Mechanical Ventilator 60.00 03/14/20 14:31 93 30 96 50 03/14/20 14:00 98 20 123/56 96 Mechanical Ventilator 60.00 03/14/20 13:30 100 129/55 03/14/20 13:00 100 34 129/55 95 Mechanical Ventilator 60.00 03/14/20 12:46 94 03/14/20 12:00 36.2 03/14/20 12:00 89 15 94/45 94 Mechanical Ventilator 60.00 03/14/20 11:40 93 30 94 60 03/14/20 11:00 93 22 133/60 93 Mechanical Ventilator 60.00 03/14/20 10:13 95 87/43 03/14/20 10:00 95 12 99/48 97 Mechanical Ventilator 60.00 03/14/20 09:00 89 20 100/65 96 Mechanical Ventilator 60.00 I & O 03/15/20 07:00 Intake Total 3380 ml Output Total 540 ml Balance 2840 ml Height & Weight Height: '" Weight: 222lbs. oz. 100.962769ea; 35.46 BMI Method: General Appearance: Other (sedated on vent ) HEENT: PERRL/EOMI, Pharynx Normal Neck: Full Range of Motion, Supple Respiratory: Chest Non Tender, No Accessory Muscle Use, No Respiratory Distress Cardiovascular: Regular Rate, Rhythm Capillary Refill: Less Than 3 Seconds Gastrointestinal: normal bowel sounds, non tender, soft Extremity: Normal Capillary Refill, Normal Inspection Results Lab Laboratory Tests 03/13/20 10:30 03/14/20 02:30 03/15/20 03:35 Assessment/Plan Assessment/Plan Upon my arrival pt is being coded. Dr. Posey and anesthesia at bedside running CODE Blue. With ACLS pt was given multiple rounds of epinephrin and 1 -2amps of Bicarb. Pt did have ROSC x2 however then goes back into cardiac arrest. Pt did not survive cardiac arrest. Family notified and all questions answered. Acute respiratory failure -Pt intubated 03/11 -Decadron 10mg IV daily - Zosyn -vides cultures -Start LR at 30cc/hr -Proning Presumed PE -DDIMer is 9.25 -Continue theraputic dose Lovenox COVID-19, influenza B -s/p Tamiflu -s/p Remdesivir,CVP LUE DVT -Theraputic dose Lovenox Pneumonia with sepsis Influenza B chronic kidney injury -Baseline ~1.5 T2DM BPH Hypothyroidism Continue home meds MARGA REYNAGA DO Mar 15, 2020 08:26
[2020-03-15] MEDS ORDERED: SODIUM BICARB 8.4% 50 MEQ/50 ML (ABBOTT) SYR INJ ONE (11:13)
[2020-03-15] MEDS ORDERED: EPINEPHrine 0.1 MG/ML 10 ML (HOSPIRA) SYR IJ ONE (11:13)
[2020-03-15] MEDS ORDERED: ATROPINE INJECTION 1 MG/10 ML SYR (ABBOTT) INJ ONE (11:13)
--- NOTE | 2020-03-20 03:32 | Physician Query Clarification ---
PQ-Intro New Diagnosis Admission/Discharge Admission Date: Mar 10, 2020 at 17:27 Discharge Date: Mar 15, 2020 at 05:00 Dr.JASON Juan David REYNAGA The medical record reflects the following clinical scenario: History/Risk Factors: 84 y/o male patient admitted with COVID 19 infection. Pulmonary consultation, 03/11: Acute respiratory failure, COVID-19, influenza B, pneumonia with sepsis currently on mechanical ventilation. Pulmonary progress notes, 03/15: Acute respiratory failure, COVID-19, influenza B, pneumonia with sepsis currently on mechanical ventilation, goes back cardiac arrest and . Clinical Findings: pulse 93 Treatment: Tamiflu, Remdesivir, Vapoterm. Question: What condition best reflects the above clinical scenario? Please document a response in the Progress Noter or Discharge Summary. 1. Sepsis 2/2 COVID19 Infection 2/2 pneumonia. 2. COVID 19 infection only. 3. Other, with explanation of the clinical findings. 4. Clinically undetermined, no explanation for the clinical findings. Please remember a lack of response to the above will prompt a phone page by CDI/Coding staff. In responding to this query, please exercise your independent professional judgment. The purpose of this communication is to more accurately reflect the complexity of your patients condition. The fact that a question is asked does not imply that any particular answer is desired or expected. Thank you for your timely response to this clarification. Requestors name: [ ] Phone # [ ] THIS PHYSICIAN QUERY FORM IS A PERMANENT PART OF THE MEDICAL RECORD GEORGETTEJARRET Mar 20, 2020 03:32
--- NOTE | 2020-04-07 07:47 | Discharge Summary ---
Diagnosis/Chief Complaint Date of Admission Mar 10, 2020 at 17:27 Date of Discharge Mar 15, 2020 at 05:00 Discharge Diagnosis Upon my arrival pt is being coded. Dr. Posey and anesthesia at bedside running CODE Blue. With ACLS pt was given multiple rounds of epinephrin and 1 -2amps of Bicarb. Pt did have ROSC x2 however then goes back into cardiac arrest. Pt did not survive cardiac arrest. Family notified and all questions answered. Acute respiratory failure -Pt intubated 03/11 -Decadron 10mg IV daily - Zosyn -vides cultures -Start LR at 30cc/hr -Proning Presumed PE -DDIMer is 9.25 -Continue theraputic dose Lovenox COVID-19, influenza B -s/p Tamiflu -s/p Remdesivir,CVP LUE DVT -Theraputic dose Lovenox Pneumonia with sepsis Influenza B chronic kidney injury -Baseline ~1.5 T2DM BPH Hypothyroidism Continue home meds Discharge Summary Hospital Course Hospital Course Pt admitted with COVID 19 PNA resulting in worsening respiratory failure and cardiac arrest. Procedures None. Discharge Physical Examination Allergies: Coded Allergies: No Known Drug Allergies (Verified , 07/29/09) Discharge Home Medications Reviewed and agree with Discharge Medication list on patient's Discharge Instruction sheet Instructions to Patient/Family Please see electronic discharge instructions given to patient. Clinical Quality Measures DVT/VTE Risk/Contraindication: Risk Factor Score Per Nursin RFS Level Per Nursing on Admit: 4+=Very High MARGA REYNAGA DO Apr 07, 2020 07:47
== END 2020-03-15 05:00 | disposition expired | DRG 871 ==
LOC: ICU 17:27
PROVIDERS: ADMIT Internal Medicine; ATTEND Internal Medicine Critical Care Medicine
PROC: 5A09357 Assistance with Respiratory Ventilation, Less than 24 Consecutive Hours, Continuous Positive Airway Pressure (ICD-10-PCS; 2020-03-10)
PROC: 5A1945Z Respiratory Ventilation, 24-96 Consecutive Hours (ICD-10-PCS; principal; 2020-03-11)
PROC: 0BH17EZ Insertion of Endotracheal Airway into Trachea, Via Natural or Artificial Opening (ICD-10-PCS; 2020-03-11)
DX: A41.9 Sepsis, unspecified organism (principal); U07.1 COVID-19; J96.00 Acute respiratory failure, unspecified whether with hypoxia or hypercapnia; J12.89 Other viral pneumonia; I26.99 Other pulmonary embolism without acute cor pulmonale; J10.08 Influenza due to other identified influenza virus with other specified pneumonia; I82.622 Acute embolism and thrombosis of deep veins of left upper extremity; I46.9 Cardiac arrest, cause unspecified; E11.9 Type 2 diabetes mellitus without complications; N18.9 Chronic kidney disease, unspecified; N40.0 Benign prostatic hyperplasia without lower urinary tract symptoms; E03.9 Hypothyroidism, unspecified; M19.91 Primary osteoarthritis, unspecified site; L40.9 Psoriasis, unspecified; Z90.49 Acquired absence of other specified parts of digestive tract; Z86.010 Personal history of colon polyps; Z79.01 Long term (current) use of anticoagulants
CPT/HCPCS: 36415; 36569; 36600; 71045; 76937; 80048; 81000; 82805; 82962; 83735; 83880; 84100; 84145; 84478; 85007; 85025; 85027; 85379; 87040; 87070; 87081; 87088; 87205; 93970; 94002; 94003; 94640; 94799